=== PATIENT | female | born 1980 | race Caucasian/White ===

== ENCOUNTER 2018-08-03 10:45 | Inpatient (IN) | payer OTHER ==
[2018-08-03 10:56] VITALS: BMI 32.5
--- NOTE | 2018-08-03 11:09 | PDOC ---
History of Present Illness - General Chief Complaint: SIRS, Suspected/Possible Stated Complaint: BODY ACHE\\ CHILLS Time Seen by Provider: 08/03/18 11:09 History Source: Patient Exam Limitations: No Limitations - History of Present Illness Initial Comments: Pt is a 38 yo F, with PMH of HTN, ESRD (IgA nephropathy, with permacath L chest and AV fistula being placed L AC), who is presenting with complaints of subjective chills and decreased appetite since yesterday. Pt saw her vascular surgeon today (Dr. Marques), who inspected her AV fistula site and removed jose. Pt called her dialysis team, who told the pt to come to the ER due to the chills. Pt states she noticed a "bad smell" coming from her permacath yesterday, but that the site "looks normal" to her. Pt denies any fevers, headache, vision changes, syncope, chest pain, palpitations, SOB, nausea/ vomiting, abdominal pain, urinary symptoms, diarrhea/constipation, or leg swelling. Social: Pt denies any cigarette, alcohol, or drug use. Pt denies any recent travel or sick contacts. Surgical: L chest permacath, L AV fistula. Family: no relevant history. 08/03/18 13:41 Past History - Travel Traveled outside of the country in the last 30 days: No Close contact w/someone who was outside of country & ill: No - Past Medical History Allergies/Adverse Reactions: Allergies Allergy/AdvReac Type Severity Reaction Status Date / Time No Known Allergies Allergy Verified 06/28/18 08:48 Home Medications: Ambulatory Orders Labetalol HCl 300 mg PO BID 06/29/18 Amlodipine Besylate [Norvasc -] 5 mg PO DAILY tablet 07/02/18 Calcium (Oyster Shell) [Os-Shaheed 500MG -] 500 mg PO DAILY #60 tablet 07/02/18 COPD: No Dialysis: (ESRD-THU//THU) GI Disorders: Yes (ESRD) HTN: Yes - Immunization History Immunization Up to Date: Yes - Suicide/Smoking/Psychosocial Hx Smoking History: Never smoked Have you smoked in the past 12 months: No Information on smoking cessation initiated: No Hx Alcohol Use: No Drug/Substance Use Hx: No Review of Systems - Review of Systems Able to Perform ROS?: Yes Is the patient limited [place] proficient: No Constitutional: Yes: Chills, Loss of Appetite, Malaise, Weight Stable. No: Diaphoresis, Fever, Weakness HEENTM: No: Blurred Vision, Recent change in vision, Nose Congestion, Throat Pain, Throat Swelling Respiratory: No: Cough, Orthopnea, Shortness of Breath Cardiac (ROS): No: Chest Pain, Edema, Irregular Heart Rate, Lightheadedness, Palpitations, Syncope, Chest Tightness ABD/GI: Yes: Poor Appetite, Poor Fluid Intake. No: Diarrhea, Nausea, Vomiting, Abdominal cramping : No: Burning, Dysuria, Frequency, Pain, Urgency Musculoskeletal: Yes: Muscle Pain. No: Back Pain, Joint Pain, Muscle Weakness Integumentary: Yes: Erythema (erythema and warmth over L chest wall, "smell" from permacath). No: Rash Neurological: No: Headache, Numbness, Weakness, Dizziness Psychiatric: No: Sleep Pattern Change, Change in Appetite Endocrine: No: Increased Urine, Change in Weight Hematologic/Lymphatic: No: Anemia, Blood Clots, Easy Bleeding, Easy Bruising All Other Systems: Reviewed and Negative *Physical Exam - Vital Signs Last Vital Signs Temp Pulse Resp BP Pulse Ox 99.1 F 94 H 16 114/52 L 100 08/03/18 10:52 08/03/18 10:52 08/03/18 10:52 08/03/18 10:52 08/03/18 10:52 - Physical Exam Comments: Vitals stable, rectal temp 102.4. Pt in NAD, normal body habitus. Pt alert and oriented x3. embryology teacher generally intact, muscular strength and sensation intact. No midline spinal tenderness, step-offs, or crepitus. Head normocephalic, atraumatic. Eyes PERRLA, EOMI. Oropharynx without erythema or exudates, no LAD b/l. No nasal congestion, hearing intact. Clear heart sounds, S1/S2, no JVD, b/l pedal edema, or heart murmur. Clear lung sounds, no respiratory distress, wheezes, crackles, or accessory muscle use. Erythema and warmth over L chest wall surrounding permacath, with foul smell, crusted discharge around catheter. No abdominal or CVA tenderness to palpation, no rebound, no guarding. Abdomen soft, non-distended, and with normoactive bowel sounds. Skin without jaundice or rash. 08/03/18 13:24 ED Treatment Course - LABORATORY CBC & Chemistry Diagram: 08/03/18 11:29 08/03/18 11:29 Medical Decision Making - Medical Decision Making Pt was seen at bedside, also will be seen by attending Dr. Logan. Pt presenting with complaints of subjective chills and decreased appetite since yesterday. Pt saw her vascular surgeon today (Dr. Marques), who inspected her AV fistula site and removed jose. Pt called her dialysis team, who told the pt to come to the ER due to the chills. Pt states she noticed a "bad smell" coming from her permacath yesterday, but that the site "looks normal" to her. Pt denies any fevers, headache, vision changes, syncope, chest pain, palpitations, SOB, nausea /vomiting, abdominal pain, urinary symptoms, diarrhea/constipation, or leg swelling. Ordered work-up including sepsis work-up with blood cultures, UA, and chest x- ray to evaluate for infectious sources (cutaneous infection, UTI, pneumonia). Will check electrolytes and ECG. Provided 1 L IV NS and 1 g ofirmev for improvement of fever and dehydration. Will continue to reassess pt and monitor for symptomatic improvement. ECG: NSR, intervals WNL (HR 91, NC 160, QRS 92, QTc 423). No TWIs or significant ST segment changes. No significant changes from prior ECG (06/28/2018 ). Pt seen by both Dr. Marques's team and Dr. Dillon (nephrology). Started 1.25 g IV vancomycin and 200 mg IV gentamycin. Paging hospitalist team for admission. 08/03/18 13:31 Pt accepted for admission (Dr. Lopez). Pt hemodynamically stable and awaiting bed upstairs. 08/03/18 13:46 *DC/Admit/Observation/Transfer Diagnosis at time of Disposition: ESRD (end stage renal disease), IgA nephropathy Sepsis Qualifiers: Sepsis type: sepsis due to unspecified organism Qualified Code(s): A41.9 - Sepsis, unspecified organism - Discharge Dispostion Condition at time of disposition: Stable Decision to Admit order: Yes - Referrals Referrals: Renate Pichardo MD [Primary Care Provider] - - Patient Instructions - Post Discharge Activity
[2018-08-03] MEDS ORDERED: ACETAMINOPHEN 1000 MG/100 ML VIAL (NON FORMULARY) IVPB ONE (11:35)
[2018-08-03 11:40] LABS: BASO % 0.7 % (0-2.0); HEMATOCRIT 28.7 % (32.4-45.2); HEMOGLOBIN 9.3 GM/dL (10.7-15.3); LYMPH % 2.7 % (8-40); MCHC 32.4 g/dl (32.0-36.0); MEAN CELL VOLUME 92.8 fl (80-96); MEAN PLT VOLUME 8.1 fl (7.5-11.1); NEUT % 91.6 % (42.8-82.8); PLATELET COUNT 255 K/MM3 (134-434); RBC 3.09 M/mm3 (3.60-5.2); RDW 13.8 % (11.6-15.6); WHITE BLOOD COUNT 18.8 K/mm3 (4.0-10.0)
[2018-08-03 11:43] LABS: VENOUS PC02 38.5 mmHg (41-51); VENOUS PH 7.34 (7.31-7.41)
[2018-08-03] MEDS ORDERED: ACETAMINOPHEN INJECTION 100 ML IVPB ONE (11:45)
[2018-08-03] MEDS: SODIUM CHLORIDE 2,422 ML IV ONE ×2 (11:45→12:27)
[2018-08-03 11:50] LABS: VENOUS PO2 22.8 mmHg (30-40)
[2018-08-03 11:57] LABS: PH,URINE 5.5 (5.0-8.0); URINE APPEARANCE Clear; URINE BILIRUBIN 1+ (NEGATIVE); URINE COLOR Yellow; URINE GLUCOSE (UA) Negative (NEGATIVE); URINE KETONE Trace (NEGATIVE); URINE LEUK ESTERASE Trace (NEGATIVE); URINE NITRITE Negative (NEGATIVE); URINE PROTEIN 3+ (NEGATIVE); URINE UROBILINOGEN 0.2 mg/dL (0.2-1.0)
--- NOTE | 2018-08-03 12:00 | PDOC ---
Attending Attestation - Resident Resident Name: Donya Shearer - ED Attending Attestation I have performed the following: I have examined & evaluated the patient, The case was reviewed & discussed with the resident, I agree w/resident's findings & plan - HPI HPI: 08/03/18 11:59 38-year-old female past medical history of hypertension, uremia/severe anemia, IgA nephropathy, ESRD via left AVF presenting with malaise, fever. - Physicial Exam PE: 08/03/18 11:59 Agree with the resident's HPI and PE as documented in the electronic medical record. malaised appearing, EOMI, PERRL, dry membranes, nl conjunctiva, anicteric; neck supple. lungs clear, RRR, soft holosystolic murmur, abdomen soft nontender. Back nontender. NIEVES x4, no focal neuro deficits. No peripheral edema. normal color for ethnicity, WWP. no rash Left AVF site maturing. left anterior chest wall permacath site intact 08/03/18 15:27 - Medical Decision Making 08/03/18 11:59 See HPI for details. Prior notes reviewed, including admissions, discharges and consultations. Vital signs reviewed, fever; normotensive, normal HR. laboratory results and imaging reviewed, basic labs and lytes notable for leukocytosis 18K, unchanged stable anemia. K fine no ekg changes. no tx for or indicated for now UA_unremarkable CXR_neg Cardiac panel_neg EKG normal sinus rhythm, no interval abnormalities, narrow QRS, ST and T wave segments and morphology normal. Nonspecific T wave abnormalities ED course - IVF and tylenol. - cultures, including blood and urine. source of infection - blood stream central access site/permacath, pna, UTI, - nephro cs Dr Longoria - rec vanc and gentamicin - vasc cs Dr Marques admit for fever/infection, presumed central line infection, nonemergent dialysis tomorrow. 08/03/18 12:22 08/03/18 15:27 08/03/18 15:28
--- NOTE | 2018-08-03 12:02 | EKG ---
Test Reason : Blood Pressure : / mmHG Vent. Rate : 091 BPM Atrial Rate : 091 BPM P-R Int : 160 ms QRS Dur : 092 ms QT Int : 344 ms P-R-T Axes : 044 071 067 degrees QTc Int : 423 ms NORMAL SINUS RHYTHM NORMAL ECG WHEN COMPARED WITH ECG OF 28-JUN-2018 10:00, NO SIGNIFICANT CHANGE WAS FOUND Confirmed by Luigi Prado MD ([id number]) on 08/03/2018 12:01:57 PM Referred By: Confirmed By:Luigi Prado MD
[2018-08-03 12:04] LABS: INR 1.19 (0.83-1.09); PROTHROMBIN TIME (PATIENT) 14.1 SEC (9.7-13.0)
[2018-08-03 12:06] LABS: ACTIVATED PTT 33.1 SECONDS (25.2-36.5)
[2018-08-03] MEDS ORDERED: VANCOMYCIN 1,250 MG in DEXTROSE 5%-WATER - 250 ML IVPB ONE (12:14)
[2018-08-03] MEDS ORDERED: GENTAMICIN INJECTION 100 MG in SODIUM CHLORIDE 97.5 ML IVPB ONE (12:15)
[2018-08-03 12:19] LABS: ALBUMIN 3.5 g/dl (3.4-5.0); BILIRUBIN,TOTAL 0.7 mg/dL (0.2-1); CALCIUM 8.6 mg/dL (8.5-10.1); POTASSIUM 4.6 mmol/L (3.5-5.1); TOT PROT 7.1 g/dl (6.4-8.2)
[2018-08-03] MEDS ORDERED: GENTAMICIN IVPB ONE (12:22)
[2018-08-03] MEDS ORDERED: SODIUM CHLORIDE IVPB ONE (12:22)
[2018-08-03] MEDS ORDERED: SODIUM CHLORIDE 1,000 ML IV STA (12:24)
[2018-08-03 12:27] LABS: EPI CELLS 2+ /HPF (0-5/HPF); URINE BACTERIA 2+ /hpf (NEGATIVE)
[2018-08-03] MEDS ORDERED: GENTAMICIN SO4 80 MG/2 ML VIAL ONE (12:46)
--- NOTE | 2018-08-03 13:47 | HP ---
Admitting History and Physical - Primary Care Physician PCP: Renate Pichardo - Admission Chief Complaint: diffuse body aches and fevers with purulet drainage from permacath History of Present Illness: This is a 38 year old woman with hx of 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 Pt was recently started on dialysis via left IJ tunneled catheter. Last dialysis was Thursday w/ o issue. + Fever of 102 in the ER. No SOB, abd pain, N/V/D, dysuria. Has diffuse body aches. History Source: Patient Limitations to Obtaining History: No Limitations - Past Medical History Cardiovascular: Yes: HTN Renal/: Yes: Renal Failure, Hemodialysis - Past Surgical History Past Surgical History: Yes: AV Fistula/Graft (left) - Smoking History Smoking history: Never smoked - Alcohol/Substance Use Hx Alcohol Use: No Home Medications - Allergies Allergies/Adverse Reactions: Allergies Allergy/AdvReac Type Severity Reaction Status Date / Time No Known Allergies Allergy Verified 06/28/18 08:48 - Home Medications Home Medications: Ambulatory Orders Labetalol HCl 300 mg PO BID 06/29/18 Amlodipine Besylate [Norvasc -] 5 mg PO DAILY tablet 07/02/18 Calcium (Oyster Shell) [Os-Shaheed 500MG -] 500 mg PO DAILY #60 tablet 07/02/18 Family Disease History - Family Disease History Family History: Unremarkable Review of Systems - Review of Systems Constitutional: reports: Chills, Fever Eyes: reports: No Symptoms HENT: reports: No Symptoms Neck: reports: No Symptoms, Other (left permacath) Cardiovascular: reports: No Symptoms Respiratory: reports: No Symptoms Gastrointestinal: reports: Nausea (yesterday) Genitourinary: reports: No Symptoms Breasts: reports: No Symptoms Reported Musculoskeletal: reports: No Symptoms Integumentary: reports: Wound (prurulent foul smelling drainage from left permacath site) Neurological: reports: No Symptoms Endocrine: reports: No Symptoms Hematology/Lymphatic: reports: No Symptoms Psychiatric: reports: No Symptoms Physical Examination Vital Signs: Vital Signs Temperature 101.9 F H 08/03/18 12:59 Pulse Rate 88 08/03/18 12:59 Respiratory Rate 20 08/03/18 12:59 Blood Pressure 112/50 L 08/03/18 12:59 O2 Sat by Pulse Oximetry (%) 98 08/03/18 12:59 Constitutional: Yes: Well Nourished, No Distress, Calm Eyes: Yes: WNL, Conjunctiva Clear, EOM Intact, Ptosis HENT: Yes: WNL, Atraumatic Neck: Yes: WNL, Supple, Trachea Midline, Other (left tunneled permacath noted. Yellow, foul smelling drainage around insertion site) Cardiovascular: Yes: WNL, Regular Rate and Rhythm, Other (laft foremarm AV fistula soumya +bruit/+thrill) Respiratory: Yes: WNL, Regular, CTA Bilaterally Gastrointestinal: Yes: WNL, Normal Bowel Sounds, Soft ...Rectal Exam: Yes: Deferred Renal/: Yes: WNL Breast(s): Yes: WNL Musculoskeletal: Yes: WNL Extremities: Yes: WNL Edema: No Peripheral Pulses WNL: Yes Neurological: Yes: WNL, Alert ...Motor Strength: WNL Psychiatric: Yes: WNL, Alert, Oriented Labs: CBC, BMP 08/03/18 11:29 08/03/18 11:29 Imaging - Results Chest X-ray: Report Reviewed, Image Reviewed (No effusion/infiltatred. Left permacath noted with tip at RA) EKG: Image Reviewed (ECG: NSR, intervals WNL (HR 91, CA 160, QRS 92, QTc 423). No TWIs or significant ST segment changes. No significant changes from prior ECG (06/28/2018).) Problem List - Problems (1) Infection Assessment/Plan: Permacath with drainage are erythema to site, possible bacteremia surgery to remove catheter culture sent from tip-will follow -leukocytosis 18.8, trend WBC, temperature -received Vanco and gentamycin in ED -ID consult requested (Dr Bryant) Dr Marques following patient and appreciate input -monitor for signs of sepsis/bacteremia Code(s): B99.9 - UNSPECIFIED INFECTIOUS DISEASE (2) ESRD (end stage renal disease) Assessment/Plan: Patient had HD on thursday, was supposed to go yesterday but felt so unwell -scheduled for new permacath tomorrow by vascular -renal followong and appreciate note, plan for HD tomorrow after catheter inserted -monitor, electrolytes, BUN/Cr -Dr Dillon following patient and appreciate input Code(s): N18.6 - END STAGE RENAL DISEASE (3) IgA nephropathy Assessment/Plan: currentlt on HD Code(s): N02.8 - RECURRENT AND PERSISTENT HEMATURIA W OTH MORPHOLOGIC CHANGES (4) HTN, goal below 130/80 Assessment/Plan: continue labetolol and norvasc with hold parameters 1L NS bolus given in ED, no further need for additional fluids Code(s): I10 - ESSENTIAL (PRIMARY) HYPERTENSION (5) Prophylactic measure Assessment/Plan: Prophy patient ambulatory however high risk for DVT if immoblilty occurs Dispo Maintain as inpatient Full code Discharge planning Code(s): Z29.9 - ENCOUNTER FOR PROPHYLACTIC MEASURES, UNSPECIFIED (6) Uremia Assessment/Plan: ESRD BUN 49, Cr 9.0 HD scheduled for tmrw after permacath inserted Code(s): N19 - UNSPECIFIED KIDNEY FAILURE Visit type - Emergency Visit Emergency Visit: Yes ED Registration Date: 08/03/18 Care time: The patient presented to the Emergency Department on the above date and was hospitalized for further evaluation of their emergent condition. - New Patient This patient is new to me today: Yes Date on this admission: 08/03/18 - Critical Care Critical Care patient: No
[2018-08-03 13:48] LABS: ANISOCYTOSIS 2+; MACROCYTOSIS 0; OVALOCYTE 1+; PLATELET ESTIMATE NORMAL
--- NOTE | 2018-08-03 14:25 | CONSULT ---
Consult - text type - Consultation Consultation Note: Renal consult for ESRD This is a 38 year old woman with hx of 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 Pt was recently started on dialysis via left IJ tunneled catheter. Last dialysis was Thursday w/ o issue. + Fever of 102 in the ER. No SOB, abd pain, N/V/D, dysuria. Has diffuse body aches. PMhx: as above Allergies: NKDA Family Hx: NC Social Hx: No T/A/D Home Medications Medication Instructions Recorded Labetalol HCl 300 mg PO BID 06/29/18 Amlodipine Besylate [Norvasc -] 5 mg PO DAILY tablet 07/02/18 Calcium (Oyster Shell) [Os-Shaheed 500 mg PO DAILY #60 tablet 07/02/18 500MG -] Vital Signs Temperature 100.6 F H 08/03/18 14:19 Pulse Rate 88 08/03/18 14:19 Respiratory Rate 18 08/03/18 14:19 Blood Pressure 101/52 L 08/03/18 14:19 O2 Sat by Pulse Oximetry (%) 98 08/03/18 14:19 Intake & Output 07/31/18 08/01/18 08/02/18 08/03/18 23:59 23:59 23:59 23:59 Weight 80.739 kg NAD awake and alert neck supple, no JVD CTA soft NT/ND No Le edema left chest catheter, mild erythema, + tenderness, no overt discharge CBC, BMP 08/03/18 11:29 08/03/18 11:29 38 year old woman with hx of 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 #Fevers with sepsis syndrome with suspected catheter related bacteremia #ESRD on HD #Hyperetnsion #Anemia tunneled catheter to be removed by vascular check blood cultures empiric Abx (vanco and gent given in the ER) ID consult no acute need for RESPIRATORY MEDICINE PHYSICIAN today will check labs in AM, to have femoral catheter inserted for HD by vascular tomorrow will continue NAVYA with HD tomorrow Thank you Von Dillon DO
[2018-08-03] MEDS ORDERED: ACETAMINOPHEN 1000 MG/100 ML VIAL (NON FORMULARY) IVPB PRN ×2 (16:13→16:36)
--- NOTE | 2018-08-03 16:21 | CONSULT ---
- Consultation REQUESTING PROVIDER: CONSULT REQUEST: We have been asked to surgically evaluate this patient for infected permacath PCP:KEE Sheets HISTORY OF PRESENT ILLNESS: This is a 38 year old woman with hx of 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 Pt was recently started on dialysis via left IJ tunneled catheter. Last dialysis was Thursday w/o issue. Patient developed fever and chills on Thursday now with + Fever of 102 in the ER. No SOB, abd pain, N/V/D, dysuria. Has diffuse body aches. PMhx: as above Allergies: NKDA Family Hx: NC Social Hx: No T/A/D Home Medications Medication Instructions Recorded Labetalol HCl 300 mg PO BID 06/29/18 Amlodipine Besylate [Norvasc -] 5 mg PO DAILY tablet 07/02/18 Calcium (Oyster Shell) [Os-Shaheed 500 mg PO DAILY #60 tablet 07/02/18 500MG -] Allergies Allergy/AdvReac Type Severity Reaction Status Date / Time No Known Allergies Allergy Verified 06/28/18 08:48 REVIEW OF SYSTEMS: CONSTITUTIONAL: + fever, chills, CARDIOVASCULAR: Absent: chest pain, syncope, palpitations, RESPIRATORY: Absent: cough, shortness of breath, dyspnea with exertion, GASTROINTESTINAL: Absent: abdominal pain, abdominal distension, nausea, vomiting, diarrhea, GENITOURINARY: Absent: dysuria, frequency, SKIN: Absent: rash, itching, pallor HEMATOLOGIC/IMMUNOLOGIC: Absent: easy bleeding, NEUROLOGIC: Absent: headache, focal weakness, paresthesias, bladder or bowel incontinence PSYCHIATRIC: Absent: anxiety, depression, suicidal or homicidal ideation, hallucinations. PHYSICAL EXAM: GENERAL: Awake, alert, and fully oriented, in no acute distress. HEAD: Normal with no signs of trauma. EYES: sclera anicteric, conjunctiva clear. LUNGS: No auditory wheezes, No accessory muscle use. MUSCULOSKELETAL: left chest wall catheter, mild erythema, + tenderness, no overt discharge UPPER EXTREMITIES: warm, well-perfused. left AVF site jose removed in office today, clean and dry, no palpable thrill. No cyanosis. No peripheral edema. NEUROLOGICAL: Normal speech, gait not observed. PSYCH: Cooperative. Good eye contact. Appropriate mood and affect. SKIN: Warm, dry, normal turgor, no rashes or lesions noted. Vital Signs Temperature 100.5 F H 08/03/18 15:30 Pulse Rate 88 08/03/18 15:30 Respiratory Rate 20 08/03/18 15:30 Blood Pressure 123/65 08/03/18 15:30 O2 Sat by Pulse Oximetry (%) 98 08/03/18 14:19 Lab Results WBC 18.8 K/mm3 (4.0-10.0) H 08/03/18 11:29 RBC 3.09 M/mm3 (3.60-5.2) L 08/03/18 11:29 Hgb 9.3 GM/dL (10.7-15.3) L 08/03/18 11:29 Hct 28.7 % (32.4-45.2) L 08/03/18 11:29 MCV 92.8 fl (80-96) 08/03/18 11:29 MCHC 32.4 g/dl (32.0-36.0) 08/03/18 11:29 RDW 13.8 % (11.6-15.6) 08/03/18 11:29 Plt Count 255 K/MM3 (134-434) D 08/03/18 11:29 Sodium 133 mmol/L (136-145) L 08/03/18 11:29 Potassium 4.6 mmol/L (3.5-5.1) 08/03/18 11:29 Chloride 102 mmol/L (98-107) 08/03/18 11:29 Carbon Dioxide 22 mmol/L (21-32) 08/03/18 11:29 Anion Gap 9 MMOL/L (8-16) 08/03/18 11:29 BUN 49 mg/dL (7-18) H 08/03/18 11:29 Creatinine 9.0 mg/dL (0.55-1.3) H* 08/03/18 11:29 Random Glucose 105 mg/dL (74-106) 08/03/18 11:29 Calcium 8.6 mg/dL (8.5-10.1) 08/03/18 11:29 INR 1.19 (0.83-1.09) H 08/03/18 11:29 Problem List - Problems (1) Sepsis Assessment/Plan: 38 year old woman with hx of 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 1) Tunneled catheter to be removed by vascular surgery at bedside today 2) F/u all cultures (Blood, PC and tunnel) 3) Empiric Abx per ID 4) f/u AM labs, plan for femoral catheter inserted for HD by vascular tomorrow Evaluation and plan discussed with Dr Marques Code(s): A41.9 - SEPSIS, UNSPECIFIED ORGANISM Qualifiers: Sepsis type: sepsis due to unspecified organism Qualified Code(s): A41.9 - Sepsis, unspecified organism
--- NOTE | 2018-08-03 16:38 | PROC ---
Procedure Note Procedure: Pt was placed supine with head up on her bed and permacath was clean and draped in a sterile method. Permacath was remove with direct force and copious pus was noted along catheter and coming out of tract. Catheter was inspected and found to be intact. A culture was taken of the permacath tract and permacath tip was sent for culture. Bleeding was minimal and pt tolerated the procedure well. A clean dry dressing was placed over the removal site.
[2018-08-03] MEDS: LABETALOL HCL 100 MG TABLET (FP) PO SCH (22:10)
[2018-08-04] MEDS: ACETAMINOPHEN 1000 MG/100 ML VIAL (NON FORMULARY) IVPB PRN ×2 (06:29→16:24)
--- NOTE | 2018-08-04 07:47 | PN ---
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 Pt was recently started on dialysis via left IJ tunneled catheter. Last dialysis was Thursday w/ o issue. + Fever of 102 in the ER. No SOB, abd pain, N/V/D, dysuria. Has diffuse body aches. - Current Medication List Current Medications: Active Medications Acetaminophen (Ofirmev Injection -) 1,000 mg IVPB Q6H PRN PRN Reason: FEVER Last Admin: 08/04/18 06:29 Dose: 1,000 mg Amlodipine Besylate (Norvasc -) 5 mg PO DAILY [facility] Calcium Carbonate (Os-Shaheed 500mg -) 500 mg PO DAILY [facility] Epoetin Karl (Epogen -) 10,000 unit IVPUSH ONCE ONE Stop: 08/04/18 12:01 Sodium Chloride (Normal Saline -) 250 mls @ 3,000 mls/hr IV PRN PRN PRN Reason: Hypotension during Dialysis Stop: 08/04/18 14:26 Labetalol HCl (Normodyne -) 300 mg PO BID [facility] Last Admin: 08/03/18 22:10 Dose: Not Given - Objective Vital Signs: Vital Signs Temperature 100.9 F H 08/04/18 05:55 Pulse Rate 83 08/04/18 05:55 Respiratory Rate 20 08/04/18 05:55 Blood Pressure 129/65 08/04/18 05:55 O2 Sat by Pulse Oximetry (%) 98 08/03/18 21:00 Constitutional: Yes: Well Nourished, No Distress, Calm Eyes: Yes: WNL, Conjunctiva Clear, EOM Intact HENT: Yes: WNL, Atraumatic, Normocephalic Neck: Yes: WNL, Supple, Trachea Midline Cardiovascular: Yes: WNL, Regular Rate and Rhythm Respiratory: Yes: WNL, Regular, CTA Bilaterally Gastrointestinal: Yes: WNL, Normal Bowel Sounds, Soft ...Rectal Exam: Yes: Deferred Genitourinary: Yes: WNL Musculoskeletal: Yes: WNL Extremities: Yes: WNL, Other (left AV fistula with +bruit/+thrill) Edema: No Peripheral Pulses WNL: Yes Integumentary: Yes: WNL Neurological: Yes: WNL, Alert, Oriented ...Motor Strength: WNL Psychiatric: Yes: WNL, Alert, Oriented Labs: CBC, BMP 08/03/18 11:29 08/03/18 11:29 INR, PTT INR 1.19 (0.83-1.09) H 08/03/18 11:29 - ....Imaging Chest X-ray: Report Reviewed, Image Reviewed EKG: Image Reviewed Problem List - Problems (1) Infection Assessment/Plan: PC removed my surgery yesterday, no drainage at removal site -culture sent and growing GPC -leukocytosis 18.8 on admission now 8.8, cont to trend WBC, temperature -received Vanco and gentamycin in ED. Vanco level 24, will send random level after HD -ID following and appreciate recommendations -Dr Marques following patient and appreciate input -monitor for signs of sepsis/bacteremia Code(s): B99.9 - UNSPECIFIED INFECTIOUS DISEASE (2) ESRD (end stage renal disease) Assessment/Plan: Patient had HD on thursday, and in HD today with planned 2kg goal removal -monitor, electrolytes, BUN/Cr -Dr Dillon following patient and appreciate input Code(s): N18.6 - END STAGE RENAL DISEASE (3) IgA nephropathy Assessment/Plan: currentlt on HD Code(s): N02.8 - RECURRENT AND PERSISTENT HEMATURIA W OTH MORPHOLOGIC CHANGES (4) HTN, goal below 130/80 Assessment/Plan: continue labetolol and norvasc with hold parameters 1L NS bolus given in ED, no further need for additional fluids Code(s): I10 - ESSENTIAL (PRIMARY) HYPERTENSION (5) Prophylactic measure Assessment/Plan: Prophy patient ambulatory however high risk for DVT if immoblilty occurs Dispo Maintain as inpatient Full code Discharge planning Code(s): Z29.9 - ENCOUNTER FOR PROPHYLACTIC MEASURES, UNSPECIFIED (6) Uremia Assessment/Plan: ESRD BUN 49, Cr 9.0 will follow Cr/BUN after HD Code(s): N19 - UNSPECIFIED KIDNEY FAILURE (7) Bacteremia associated with intravascular line Assessment/Plan: permacath removes and given dose of vanco and gent Blood and PC trip cx growing GPC will dose vanco level per level TTE ordered to r/o any vegetations (no mummurs noted on exam) Code(s): T82.7XXA - INFECT/INFLM REACT D/T OTH CARDI/VASC DEV/IMPLNT/GRFT, INIT ; R78.81 - BACTEREMIA Visit type - Emergency Visit Emergency Visit: Yes ED Registration Date: 08/03/18 Care time: The patient presented to the Emergency Department on the above date and was hospitalized for further evaluation of their emergent condition. - New Patient This patient is new to me today: No - Critical Care Critical Care patient: No - Discharge Referral Referred to [facility] Med P.C.: No
[2018-08-04 08:55] LABS: BASO % 0.3 % (0-2.0); EOS % 1.3 % (0-4.5); HEMATOCRIT 25.3 % (32.4-45.2); HEMOGLOBIN 8.5 GM/dL (10.7-15.3); LYMPH % 5.1 % (8-40); MCH 30.7 pg (25.7-33.7); MCHC 33.4 g/dl (32.0-36.0); MEAN CELL VOLUME 91.9 fl (80-96); MEAN PLT VOLUME 8.4 fl (7.5-11.1); MONO % 3.9 % (3.8-10.2); NEUT % 89.4 % (42.8-82.8); PLATELET COUNT 213 K/MM3 (134-434); RBC 2.76 M/mm3 (3.60-5.2); RDW 14.2 % (11.6-15.6); WHITE BLOOD COUNT 9.9 K/mm3 (4.0-10.0)
[2018-08-04 09:07] LABS: INR 1.1 (0.83-1.09)
[2018-08-04 09:10] LABS: ACTIVATED PTT 32.1 SECONDS (25.2-36.5)
[2018-08-04 09:30] LABS: MAGNESIUM 2.3 mg/dL (1.8-2.4); PHOSPHOROUS 4.6 mg/dL (2.5-4.9)
[2018-08-04] MEDS: CALCIUM (OYSTER SHELL) 500 MG TABLET (FP) PO SCH (09:31)
[2018-08-04] MEDS: LABETALOL HCL 100 MG TABLET (FP) PO SCH ×2 (10:10→21:11)
[2018-08-04] MEDS: amLODIPine BESYLATE 5 MG TABLET (FP) PO SCH (10:10)
--- NOTE | 2018-08-04 10:29 | CON.ID ---
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 Pt was recently started on dialysis via left IJ tunneled catheter. Last dialysis was Thursday w/o issue. + Fever of 102 in the ER. No SOB, abd pain, N/V/D, dysuria. Has diffuse body aches. patient was worked up found to have bacteremia permacath was removed currently patient feels better and has been afebrile - History Source History Provided By: Patient Limitations to Obtaining History: No Limitations - Past Medical History Cardio/Vascular: Yes: HTN Renal/: Yes: Renal Failure, Hemodialysis ...LMP Comment: 07/14/18 ...: No - Past Surgical History Past Surgical History: Yes: AV Fistula/Graft (left) - Alcohol/Substance Use Hx Alcohol Use: No - Smoking History Smoking history: Never smoked Have you smoked in the past 12 months: No Aproximately how many cigarettes per day: 0 Home Medications - Allergies Allergies/Adverse Reactions: Allergies Allergy/AdvReac Type Severity Reaction Status Date / Time No Known Allergies Allergy Verified 06/28/18 08:48 - Home Medications Home Medications: Ambulatory Orders Labetalol HCl 300 mg PO BID 06/29/18 Amlodipine Besylate [Norvasc -] 5 mg PO DAILY tablet 07/02/18 Calcium (Oyster Shell) [Os-Shaheed 500MG -] 500 mg PO DAILY #60 tablet 07/02/18 Review of Systems - Review of Systems Constitutional: reports: Fever Eyes: reports: No Symptoms HENT: reports: No Symptoms Neck: reports: No Symptoms Cardiovascular: reports: No Symptoms Respiratory: reports: No Symptoms Gastrointestinal: reports: No Symptoms Genitourinary: reports: No Symptoms Musculoskeletal: reports: No Symptoms Integumentary: reports: Other Neurological: reports: No Symptoms Endocrine: reports: No Symptoms Hematology/Lymphatic: reports: No Symptoms Psychiatric: reports: No Symptoms Physical Exam Vital Signs: Vital Signs Temperature 99.4 F 08/04/18 08:01 Pulse Rate 77 08/04/18 08:01 Respiratory Rate 20 06/05/19 08:01 Blood Pressure 124/67 08/04/18 08:01 O2 Sat by Pulse Oximetry (%) 98 08/03/18 21:00 Constitutional: Yes: Well Nourished, No Distress, Calm Eyes: Yes: Conjunctiva Clear HENT: Yes: Other Neck: Yes: Supple, Trachea Midline Cardiovascular: Yes: Regular Rate and Rhythm Respiratory: Yes: Regular, CTA Bilaterally Gastrointestinal: Yes: Normal Bowel Sounds, Soft Musculoskeletal: Yes: WNL Extremities: Yes: WNL Wound/Incision: Yes: Dressing Dry and Intact Neurological: Yes: Alert, Oriented Psychiatric: Yes: Alert, Oriented Labs: CBC, BMP 08/04/18 08:26 08/03/18 11:29 Imaging - Results Chest X-ray: Report Reviewed, Image Reviewed Assessment/Plan Problem List - Problems (1) Infection Code(s): B99.9 - UNSPECIFIED INFECTIOUS DISEASE (2) ESRD (end stage renal disease) Code(s): N18.6 - END STAGE RENAL DISEASE (3) IgA nephropathy Code(s): N02.8 - RECURRENT AND PERSISTENT HEMATURIA W OTH MORPHOLOGIC CHANGES (4) HTN, goal below 130/80 Code(s): I10 - ESSENTIAL (PRIMARY) HYPERTENSION (5) Prophylactic measure Code(s): Z29.9 - ENCOUNTER FOR PROPHYLACTIC MEASURES, UNSPECIFIED (6) Uremia Code(s): N19 - UNSPECIFIED KIDNEY FAILURE 7 gm positive bacteremia plan will await for vanco levels will decide the dose wound care await for identification of the bacteria re cx result awaited
--- NOTE | 2018-08-04 12:18 | PROC ---
Central Line Insertion - Procedure Note TIME OUT performed prior to this procedure with verbal confirmation of correct patient identity, correct side, agreement of the procedure, correct patient position, availability of necessary equipment. The consent form is complete and accurate. Risk of possible infection, and bleeding have been discussed with the patient. Safety precautions based on patient history or medication use has been addressed. Indication: Other (access for dialysis) Central Line: Dialysis Cath, Dual Lumen Position: Supine Area prepped with Chlorhexidine solution then draped using sterile barrier protection. Anesthesia: Lidocaine 1% Technique used: Seldinger Ultrasound Guided Assistance: Yes Site: Right Femoral Dark venous non-pulsatile flow noted from hub of needle. The catheter was introduced. Guide wire removed intact. Each port aspirated then flushed with sterile normal saline and capped. Line secured to skin with silk suture. Biopatch placed around base of line. Sterile occlusive dressing applied. No complications. Patient tolerated the procedure well. CORNELIUS Melara was present throughout the entire procedure
[2018-08-04] MEDS ORDERED: SODIUM CHLORIDE 250 ML IV PRN (13:55)
[2018-08-04] MEDS ORDERED: EPOETIN ALFA 10,000 UNIT/1 ML VIAL IVPUSH ONE (14:00)
--- NOTE | 2018-08-04 14:43 | PN ---
Progress Note (short form) - Note Progress Note: Renal follow up for ESRD Pt seen and examined during dialysis s/p femoral catheter placement by vascular surgery BP stable, no fevers, no cp, abd pain continues to feel weak Goal UF is 1.5-2L Vital Signs Temperature 98.3 F 08/04/18 12:40 Pulse Rate 82 08/04/18 14:15 Respiratory Rate 18 08/04/18 14:15 Blood Pressure 115/63 08/04/18 14:15 O2 Sat by Pulse Oximetry (%) 96 08/04/18 09:00 Intake & Output 08/01/18 08/02/18 08/03/18 08/04/18 23:59 23:59 23:59 23:59 Intake Total 340 0 Balance 340 0 Weight 80.558 kg 80.014 kg NAD awake and alert neck supple, no JVD CTA soft NT/ND No Le edema left chest catheter, mild erythema, + tenderness, no overt discharge CBC, BMP 08/04/18 08:26 08/03/18 11:29 Current Medications Acetaminophen (Ofirmev Injection -) 1,000 mg IVPB Q6H PRN PRN Reason: FEVER Last Admin: 08/04/18 06:29 Dose: 1,000 mg Amlodipine Besylate (Norvasc -) 5 mg PO DAILY [facility] Last Admin: 08/04/18 10:10 Dose: Not Given Calcium Carbonate (Os-Shaheed 500mg -) 500 mg PO DAILY [facility] Last Admin: 08/04/18 09:31 Dose: 500 mg Labetalol HCl (Normodyne -) 300 mg PO BID [facility] Last Admin: 08/04/18 10:10 Dose: Not Given 38 year old woman with hx of 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 #catheter related bacteremia #ESRD on HD #Hyperetnsion #Anemia tolerating dialysis well clinically improved, no fever, less toxic appearing would ideally like to maintain femoral catheter until next dialysis (Thursday morning) and then remove, will discuss with ID Vanco level is 24 today, repeat level in AM (expect to come down with dialysis) f/u final cultures repeat cultures to be drawn today and tomorrow will give NAVYA with HD Thank you Von Dillon DO
[2018-08-04 14:58] LABS: ALBUMIN 3.1 g/dl (3.4-5.0); BILIRUBIN,TOTAL 0.5 mg/dL (0.2-1); CALCIUM 8.4 mg/dL (8.5-10.1); POTASSIUM 4.1 mmol/L (3.5-5.1); TOT PROT 6.5 g/dl (6.4-8.2)
[2018-08-04 15:02] LABS: CREATININE 9.3 mg/dL (0.55-1.3)
[2018-08-04 16:00] LABS: INR 1.03 (0.83-1.09); PROTHROMBIN TIME (PATIENT) 12.1 SEC (9.7-13.0)
[2018-08-04] MEDS ORDERED: ONDANSETRON 4 MG/2 ML VIAL ONE (21:51)
[2018-08-05 07:13] LABS: MAGNESIUM 2.2 mg/dL (1.8-2.4)
[2018-08-05 08:02] LABS: BASO % 0.3 % (0-2.0); EOS % 2.3 % (0-4.5); HEMOGLOBIN 8.8 GM/dL (10.7-15.3); LYMPH % 12.4 % (8-40); MCHC 32.6 g/dl (32.0-36.0); MEAN PLT VOLUME 9.4 fl (7.5-11.1); MONO % 10.8 % (3.8-10.2); NEUT % 74.2 % (42.8-82.8); PLATELET COUNT 205 K/MM3 (134-434); RBC 2.94 M/mm3 (3.60-5.2); RDW 13.8 % (11.6-15.6); WHITE BLOOD COUNT 5.5 K/mm3 (4.0-10.0)
[2018-08-05] MEDS ORDERED: VANCOMYCIN 1 GM in D5W (PRE-DOCKED) 1,000 MG/250 ML IVPB ONE (08:25)
--- NOTE | 2018-08-05 08:27 | PN ---
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 Pt was recently started on dialysis via left IJ tunneled catheter. Last dialysis was Thursday w/ o issue. + Fever of 102 in the ER. No SOB, abd pain, N/V/D, dysuria. Has diffuse body aches. - Current Medication List Current Medications: Active Medications Acetaminophen (Ofirmev Injection -) 1,000 mg IVPB Q6H PRN PRN Reason: FEVER Last Admin: 08/04/18 16:24 Dose: 1,000 mg Amlodipine Besylate (Norvasc -) 5 mg PO DAILY [facility] Last Admin: 08/04/18 10:10 Dose: Not Given Calcium Carbonate (Os-Shaheed 500mg -) 500 mg PO DAILY [facility] Last Admin: 08/04/18 09:31 Dose: 500 mg Labetalol HCl (Normodyne -) 300 mg PO BID [facility] Last Admin: 08/04/18 21:11 Dose: 300 mg - Objective Vital Signs: Vital Signs Temperature 99.4 F 08/05/18 06:05 Pulse Rate 83 08/05/18 06:05 Respiratory Rate 20 08/05/18 06:05 Blood Pressure 127/72 08/05/18 06:05 O2 Sat by Pulse Oximetry (%) 96 08/04/18 21:00 Constitutional: Yes: Well Nourished, No Distress, Calm Eyes: Yes: WNL, Conjunctiva Clear, EOM Intact HENT: Yes: WNL, Atraumatic, Normocephalic Neck: Yes: WNL, Supple, Trachea Midline Cardiovascular: Yes: WNL, Regular Rate and Rhythm Respiratory: Yes: WNL, Regular, CTA Bilaterally Gastrointestinal: Yes: WNL, Normal Bowel Sounds, Soft ...Rectal Exam: Yes: Deferred Genitourinary: Yes: Other (On HD) Breast(s): Yes: WNL Musculoskeletal: Yes: WNL Extremities: Yes: WNL Edema: Yes Edema: LLE: Trace, RLE: Trace Peripheral Pulses WNL: Yes Neurological: Yes: WNL, Alert, Oriented ...Motor Strength: WNL Psychiatric: Yes: WNL, Alert, Oriented Additional Findings/Remarks: Right femoral PC in place Labs: CBC, BMP 08/05/18 06:00 08/04/18 14:30 INR, PTT INR 1.03 (0.83-1.09) 08/04/18 15:30 - ....Imaging Chest X-ray: Image Reviewed Problem List - Problems (1) Infection Assessment/Plan: PC removed my surgery yesterday, no drainage at removal site -culture sent and growing MSSA -leukocytosis 18.8 on admission now 5.5 cont to trend WBC, temperature -received Vanco and gentamycin in ED. Vanco level 16 , will dose Vanco -ID following and appreciate recommendations -Dr Marques following patient and appreciate input, plan for tunneled cath tomorrow -monitor for signs of sepsis/bacteremia Code(s): B99.9 - UNSPECIFIED INFECTIOUS DISEASE (2) ESRD (end stage renal disease) Assessment/Plan: Patient had HD on thursday, and in HD yesterday with planned 2kg goal removal -monitor, electrolytes, BUN/Cr -Dr Dillon following patient and appreciate input -plan for HD tomorrow and then removal of dialysis cath Code(s): N18.6 - END STAGE RENAL DISEASE (3) IgA nephropathy Assessment/Plan: currentlt on HD Code(s): N02.8 - RECURRENT AND PERSISTENT HEMATURIA W OTH MORPHOLOGIC CHANGES (4) HTN, goal below 130/80 Assessment/Plan: continue labetolol and norvasc with hold parameters 1L NS bolus given in ED, no further need for additional fluids Code(s): I10 - ESSENTIAL (PRIMARY) HYPERTENSION (5) Prophylactic measure Assessment/Plan: Prophy patient ambulatory however high risk for DVT if immoblilty occurs Dispo Maintain as inpatient Full code Discharge planning Code(s): Z29.9 - ENCOUNTER FOR PROPHYLACTIC MEASURES, UNSPECIFIED (6) Uremia Assessment/Plan: ESRD BUN 49, Cr 9.0 will follow Cr/BUN after HD Code(s): N19 - UNSPECIFIED KIDNEY FAILURE (7) Bacteremia associated with intravascular line Assessment/Plan: permacath removed Blood and PC tip growing MSSA will dose vanco level per level TTE pending Code(s): T82.7XXA - INFECT/INFLM REACT D/T OTH CARDI/VASC DEV/IMPLNT/GRFT, INIT ; R78.81 - BACTEREMIA Visit type - Emergency Visit Emergency Visit: Yes ED Registration Date: 08/03/18 Care time: The patient presented to the Emergency Department on the above date and was hospitalized for further evaluation of their emergent condition. - New Patient This patient is new to me today: No - Critical Care Critical Care patient: No - Discharge Referral Referred to [facility] No
[2018-08-05] MEDS ORDERED: VANCOMYCIN 1 GRAM (PRE-DOCKED) 1,000 MG/250 ML BAG IVPB ONE (08:45)
--- NOTE | 2018-08-05 09:00 | PN ---
Progress Note (short form) - Note Progress Note: Admitted for line sepsis. Nos feels well. Tmax 99.7 Cath site clean, no redness or tenderness Blood C+S GPC, last set negative She will need new Permacath. If OK with ID I can schedule this afternoon.
[2018-08-05 09:35] LABS: BILIRUBIN,TOTAL 0.4 mg/dL (0.2-1); CALCIUM 7.9 mg/dL (8.5-10.1); CREATININE 5.9 mg/dL (0.55-1.3); POTASSIUM 3.7 mmol/L (3.5-5.1); TOT PROT 6.7 g/dl (6.4-8.2)
[2018-08-05] MEDS: LABETALOL HCL 100 MG TABLET (FP) PO SCH ×2 (10:43→21:25)
[2018-08-05] MEDS: CALCIUM (OYSTER SHELL) 500 MG TABLET (FP) PO SCH (10:43)
[2018-08-05] MEDS: amLODIPine BESYLATE 5 MG TABLET (FP) PO SCH (10:45)
--- NOTE | 2018-08-05 12:46 | PN ---
Progress Note, Physician History of Present Illness: stable no complaints repeat cx negative so far - Current Medication List Current Medications: Active Medications Acetaminophen (Ofirmev Injection -) 1,000 mg IVPB Q6H PRN PRN Reason: FEVER Last Admin: 08/04/18 16:24 Dose: 1,000 mg Amlodipine Besylate (Norvasc -) 5 mg PO DAILY [facility] Last Admin: 08/05/18 10:45 Dose: 5 mg Calcium Carbonate (Os-Shaheed 500mg -) 500 mg PO DAILY [facility] Last Admin: 08/05/18 10:43 Dose: 500 mg Labetalol HCl (Normodyne -) 300 mg PO BID [facility] Last Admin: 08/05/18 10:43 Dose: 300 mg - Objective Vital Signs: Vital Signs Temperature 99.3 F 08/05/18 10:00 Pulse Rate 83 08/05/18 10:00 Respiratory Rate 18 08/05/18 10:00 Blood Pressure 125/83 08/05/18 10:00 O2 Sat by Pulse Oximetry (%) 99 08/05/18 09:00 Constitutional: Yes: No Distress, Calm Cardiovascular: Yes: Regular Rate and Rhythm Respiratory: Yes: Regular, CTA Bilaterally Gastrointestinal: Yes: Normal Bowel Sounds, Soft Musculoskeletal: Yes: WNL Extremities: Yes: WNL Neurological: Yes: Alert, Oriented Psychiatric: Yes: Alert, Oriented Labs: CBC, BMP 08/05/18 06:00 08/05/18 06:00 INR, PTT INR 1.03 (0.83-1.09) 08/04/18 15:30 Assessment/Plan Problem List - Problems (1) Infection Code(s): B99.9 - UNSPECIFIED INFECTIOUS DISEASE (2) ESRD (end stage renal disease) Code(s): N18.6 - END STAGE RENAL DISEASE (3) IgA nephropathy Code(s): N02.8 - RECURRENT AND PERSISTENT HEMATURIA W OTH MORPHOLOGIC CHANGES (4) HTN, goal below 130/80 Code(s): I10 - ESSENTIAL (PRIMARY) HYPERTENSION (5) Prophylactic measure Code(s): Z29.9 - ENCOUNTER FOR PROPHYLACTIC MEASURES, UNSPECIFIED (6) Uremia Code(s): N19 - UNSPECIFIED KIDNEY FAILURE 7 gm positive bacteremia plan continue current mgmt rest as per the team
[2018-08-05 14:34] LABS: INR 1.08 (0.83-1.09); PROTHROMBIN TIME (PATIENT) 12.7 SEC (9.7-13.0)
[2018-08-05 14:54] LABS: ALBUMIN 3.1 g/dl (3.4-5.0); BILIRUBIN,TOTAL 0.5 mg/dL (0.2-1); CALCIUM 8.4 mg/dL (8.5-10.1); CREATININE 6.5 mg/dL (0.55-1.3); POTASSIUM 3.5 mmol/L (3.5-5.1)
--- NOTE | 2018-08-05 15:05 | PN ---
Progress Note (short form) - Note Progress Note: Renal follow up for ESRD Pt seen and examined at the bedside no fevers, chills, or body aches no sob, cp, abd pain, N/V/D had dialysis yesterday Vital Signs Temperature 99.3 F 08/05/18 10:00 Pulse Rate 83 08/05/18 10:00 Respiratory Rate 18 08/05/18 10:00 Blood Pressure 125/83 08/05/18 10:00 O2 Sat by Pulse Oximetry (%) 99 08/05/18 09:00 Intake & Output 08/02/18 08/03/18 08/04/18 08/05/18 23:59 23:59 23:59 23:59 Intake Total 340 100 200 Balance 340 100 200 Weight 80.558 kg 80.014 kg 78.273 kg NAD awake and alert neck supple, no JVD CTA soft NT/ND No Le edema left chest catheter, mild erythema, + tenderness, no overt discharge CBC, BMP 08/05/18 06:00 08/05/18 14:18 Current Medications Acetaminophen (Ofirmev Injection -) 1,000 mg IVPB Q6H PRN PRN Reason: FEVER Last Admin: 08/04/18 16:24 Dose: 1,000 mg Amlodipine Besylate (Norvasc -) 5 mg PO DAILY [facility] Last Admin: 08/05/18 10:45 Dose: 5 mg Calcium Carbonate (Os-Shaheed 500mg -) 500 mg PO DAILY [facility] Last Admin: 08/05/18 10:43 Dose: 500 mg Labetalol HCl (Normodyne -) 300 mg PO BID [facility] Last Admin: 08/05/18 10:43 Dose: 300 mg 38 year old woman with hx of 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 #catheter related bacteremia #ESRD on HD #Hyperetnsion #Anemia no acute need for dialysis today will plan dialysis tomorrow via femoral catheter and then it can be removed primary cultures growing MSSA s/p Vanco this am, will given Ancef 3g IV post HD tomorrow discussed with HD new tunneled catheter can be placed with repeat cultures are final negative Thank you Von Dillon DO
[2018-08-05] MEDS ORDERED: SODIUM CHLORIDE 250 ML IV PRN (15:31)
--- NOTE | 2018-08-05 16:29 | SPA.PREOP ---
- PRE-OP NOTE Dx: ESRD Planned Procedure: permacath placement Surgeon: Last Vital Signs Temp Pulse Resp BP Pulse Ox 98.1 F 83 18 114/49 L 99 08/05/18 15:34 08/05/18 15:34 08/05/18 15:34 08/05/18 15:34 08/05/18 09:00 Left chest: No erythema or drainage noted. Right Groin: shiley in place. Dressing c/d/i. Lab Results WBC 5.5 K/mm3 (4.0-10.0) 08/05/18 06:00 RBC 2.94 M/mm3 (3.60-5.2) L 08/05/18 06:00 Hgb 8.8 GM/dL (10.7-15.3) L 08/05/18 06:00 Hct 27.0 % (32.4-45.2) L 08/05/18 06:00 MCV 92.0 fl (80-96) 08/05/18 06:00 MCHC 32.6 g/dl (32.0-36.0) 08/05/18 06:00 RDW 13.8 % (11.6-15.6) 08/05/18 06:00 Plt Count 205 K/MM3 (134-434) 08/05/18 06:00 Sodium 136 mmol/L (136-145) 08/05/18 14:18 Potassium 3.5 mmol/L (3.5-5.1) 08/05/18 14:18 Chloride 99 mmol/L (98-107) 08/05/18 14:18 Carbon Dioxide 26 mmol/L (21-32) 08/05/18 14:18 Anion Gap 10 MMOL/L (8-16) 08/05/18 14:18 BUN 31 mg/dL (7-18) H 08/05/18 14:18 Creatinine 6.5 mg/dL (0.55-1.3) H 08/05/18 14:18 Random Glucose 132 mg/dL (74-106) H 08/05/18 14:18 Calcium 8.4 mg/dL (8.5-10.1) L 08/05/18 14:18 INR 1.08 (0.83-1.09) 08/05/18 14:18 Microbiology 08/03/18 20:45 Urine - Urine Clean Catch Urine Culture - Final NO GROWTH OBTAINED 08/03/18 16:39 Catheter Site Gram Stain - Final 08/03/18 16:32 Chest Gram Stain - Final 08/04/18 08:26 Blood - Pre-Dialysis Blood Culture - Preliminary NO GROWTH OBTAINED AFTER 24 HOURS, INCUBATION TO CONTINUE FOR 4 DAYS. 08/04/18 08:26 Blood - Pre-Dialysis Blood Culture - Preliminary NO GROWTH OBTAINED AFTER 24 HOURS, INCUBATION TO CONTINUE FOR 4 DAYS. 08/03/18 16:39 Catheter Site Wound Culture - Preliminary Presumptive Mssa (Pbp2a Neg) 08/03/18 16:32 Chest Wound Culture - Preliminary Presumptive Mssa (Pbp2a Neg) 08/03/18 11:29 Blood - Peripheral Venous Blood Culture - Preliminary Staphylococcus Latex Coag Pos 08/03/18 11:29 Blood - Peripheral Venous Blood Culture - Preliminary Presumptive Mssa (Pbp2a Neg) A/P: 38 yo female with ESRD for [facility] Spoke with ID and will continue IV abx, pt cleared for procedure pending blood cultures to remains negative. NGTD from 08/04/2018. Bacitracin to left chest D/w Dr. Marques - ASSESSMENT/PLAN 1. Make NPO after midnight except po meds 2. GI/DVT PPX 3. Medical optimization / clearance 4. Consent to be obtained by surgeon after risks, benefits and alternatives discussed with patient and or Health Care Proxy.
[2018-08-05] MEDS: BACITRACIN 15 GM TUBE TOPICAL OINTMENT TP SCH (21:25)
[2018-08-05] MEDS: ACETAMINOPHEN 1000 MG/100 ML VIAL (NON FORMULARY) IVPB PRN (23:22)
[2018-08-06] MEDS ORDERED: PT OWN MED DRAWER 7, Y5N ONE (06:05)
[2018-08-06 07:46] LABS: BASO % 0.8 % (0-2.0); EOS % 7.7 % (0-4.5); HEMATOCRIT 26.2 % (32.4-45.2); HEMOGLOBIN 8.7 GM/dL (10.7-15.3); LYMPH % 20.1 % (8-40); MCH 30.1 pg (25.7-33.7); MCHC 33.2 g/dl (32.0-36.0); MEAN CELL VOLUME 90.6 fl (80-96); MEAN PLT VOLUME 8.6 fl (7.5-11.1); MONO % 12.5 % (3.8-10.2); NEUT % 58.9 % (42.8-82.8); RBC 2.89 M/mm3 (3.60-5.2); RDW 13.8 % (11.6-15.6); WHITE BLOOD COUNT 5.1 K/mm3 (4.0-10.0)
--- NOTE | 2018-08-06 08:28 | PN ---
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 Pt was recently started on dialysis via left IJ tunneled catheter. Last dialysis was Thursday w/ o issue. + Fever of 102 in the ER. No SOB, abd pain, N/V/D, dysuria. Has diffuse body aches. - Current Medication List Current Medications: Active Medications Acetaminophen (Ofirmev Injection -) 1,000 mg IVPB Q6H PRN PRN Reason: FEVER Last Admin: 08/05/18 23:22 Dose: 1,000 mg Amlodipine Besylate (Norvasc -) 5 mg PO DAILY [facility] Last Admin: 08/05/18 10:45 Dose: 5 mg Bacitracin (Bacitracin -) 1 applic TP BID [facility] Last Admin: 08/05/18 21:25 Dose: 1 applic Calcium Carbonate (Os-Shaheed 500mg -) 500 mg PO DAILY [facility] Last Admin: 08/05/18 10:43 Dose: 500 mg Sodium Chloride (Normal Saline -) 250 mls @ 3,000 mls/hr IV PRN PRN PRN Reason: Hypotension during Dialysis Stop: 08/06/18 15:31 Cefazolin Sodium 3 gm/ (Dextrose) 50 mls @ 100 mls/hr IVPB ONCE ONE Stop: 08/06/18 09:29 Labetalol HCl (Normodyne -) 300 mg PO BID [facility] Last Admin: 08/05/18 21:25 Dose: Not Given - Objective Vital Signs: Vital Signs Temperature 98.3 F 08/06/18 05:58 Pulse Rate 71 08/06/18 05:58 Respiratory Rate 18 08/06/18 05:58 Blood Pressure 139/69 08/06/18 05:58 O2 Sat by Pulse Oximetry (%) 99 08/05/18 21:00 Constitutional: Yes: Well Nourished, No Distress, Calm Eyes: Yes: WNL, Conjunctiva Clear, EOM Intact HENT: Yes: WNL, Atraumatic, Normocephalic Neck: Yes: WNL, Supple, Trachea Midline Cardiovascular: Yes: WNL, Regular Rate and Rhythm Respiratory: Yes: WNL, Regular, CTA Bilaterally Gastrointestinal: Yes: WNL ...Rectal Exam: Yes: Deferred Genitourinary: Yes: WNL Musculoskeletal: Yes: WNL Extremities: Yes: Other (right femoral shiley catheter in place) Peripheral Pulses WNL: Yes Integumentary: Yes: WNL Neurological: Yes: WNL, Oriented ...Motor Strength: WNL Psychiatric: Yes: WNL, Alert, Oriented Labs: CBC, BMP 08/06/18 06:10 08/05/18 14:18 INR, PTT INR 1.08 (0.83-1.09) 08/05/18 14:18 - ....Imaging Chest X-ray: Image Reviewed Problem List - Problems (1) ESRD (end stage renal disease) Assessment/Plan: HD today -monitor, electrolytes, BUN/Cr -Dr Dillon following patient and appreciate input -plan for HD on thursday after procedures Code(s): N18.6 - END STAGE RENAL DISEASE (2) IgA nephropathy Assessment/Plan: currentlt on HD Code(s): N02.8 - RECURRENT AND PERSISTENT HEMATURIA W OTH MORPHOLOGIC CHANGES (3) HTN, goal below 130/80 Assessment/Plan: continue labetolol and norvasc with hold parameters 1L NS bolus given in ED, no further need for additional fluids Code(s): I10 - ESSENTIAL (PRIMARY) HYPERTENSION (4) Prophylactic measure Assessment/Plan: Prophy patient ambulatory however high risk for DVT if immoblilty occurs Dispo Maintain as inpatient Full code Discharge planning Code(s): Z29.9 - ENCOUNTER FOR PROPHYLACTIC MEASURES, UNSPECIFIED (5) Uremia Assessment/Plan: ESRD BUN 49, Cr 6.5 will follow Cr/BUN after HD Code(s): N19 - UNSPECIFIED KIDNEY FAILURE (6) Bacteremia associated with intravascular line Assessment/Plan: permacath removed with new skiley placed Blood and PC tip growing MSSA will dose vanco level per level TTE without vegetations -culture growing MSSA -leukocytosis 18.8 on admission now 5.1 cont to trend WBC, temperature -received Vanco and gentamycin in ED. Vanco dosed by level -ID following and appreciate recommendations -Dr Marques following patient and appreciate input, plan for tunneled cath on 08/09 with revision of AV fistua -monitor for signs of sepsis/bacteremia Code(s): T82.7XXA - INFECT/INFLM REACT D/T OTH CARDI/VASC DEV/IMPLNT/GRFT, INIT ; R78.81 - BACTEREMIA Visit type - Emergency Visit Emergency Visit: Yes ED Registration Date: 08/03/18 Care time: The patient presented to the Emergency Department on the above date and was hospitalized for further evaluation of their emergent condition. - New Patient This patient is new to me today: No - Critical Care Critical Care patient: No - Discharge Referral Referred to [facility] Med P.C.: No
--- NOTE | 2018-08-06 09:05 | PN ---
Progress Note, Physician History of Present Illness: stable no new issues - Current Medication List Current Medications: Active Medications Acetaminophen (Ofirmev Injection -) 1,000 mg IVPB Q6H PRN PRN Reason: FEVER Last Admin: 08/05/18 23:22 Dose: 1,000 mg Amlodipine Besylate (Norvasc -) 5 mg PO DAILY [facility] Last Admin: 08/05/18 10:45 Dose: 5 mg Bacitracin (Bacitracin -) 1 applic TP BID [facility] Last Admin: 08/05/18 21:25 Dose: 1 applic Calcium Carbonate (Os-Shaheed 500mg -) 500 mg PO DAILY [facility] Last Admin: 08/05/18 10:43 Dose: 500 mg Sodium Chloride (Normal Saline -) 250 mls @ 3,000 mls/hr IV PRN PRN PRN Reason: Hypotension during Dialysis Stop: 08/06/18 15:31 Cefazolin Sodium 3 gm/ (Dextrose) 50 mls @ 100 mls/hr IVPB ONCE ONE Stop: 08/06/18 09:29 Labetalol HCl (Normodyne -) 300 mg PO BID [facility] Last Admin: 08/05/18 21:25 Dose: Not Given - Objective Vital Signs: Vital Signs Temperature 98.3 F 08/06/18 05:58 Pulse Rate 71 08/06/18 05:58 Respiratory Rate 18 08/06/18 05:58 Blood Pressure 139/69 08/06/18 05:58 O2 Sat by Pulse Oximetry (%) 99 08/05/18 21:00 Constitutional: Yes: No Distress, Calm Cardiovascular: Yes: Regular Rate and Rhythm Respiratory: Yes: Regular, CTA Bilaterally Gastrointestinal: Yes: Normal Bowel Sounds, Soft Musculoskeletal: Yes: WNL Extremities: Yes: WNL Neurological: Yes: Alert, Oriented Psychiatric: Yes: Alert, Oriented Labs: CBC, BMP 08/06/18 06:10 08/05/18 14:18 INR, PTT INR 1.08 (0.83-1.09) 08/05/18 14:18 Assessment/Plan Problem List - Problems (1) Infection Code(s): B99.9 - UNSPECIFIED INFECTIOUS DISEASE (2) ESRD (end stage renal disease) Code(s): N18.6 - END STAGE RENAL DISEASE (3) IgA nephropathy Code(s): N02.8 - RECURRENT AND PERSISTENT HEMATURIA W OTH MORPHOLOGIC CHANGES (4) HTN, goal below 130/80 Code(s): I10 - ESSENTIAL (PRIMARY) HYPERTENSION (5) Prophylactic measure Code(s): Z29.9 - ENCOUNTER FOR PROPHYLACTIC MEASURES, UNSPECIFIED (6) Uremia Code(s): N19 - UNSPECIFIED KIDNEY FAILURE 7 gm positive bacteremia plan continue current mgmt rest as per the team patient to be started on cefazolin dialysis will need it for at least 2- 3 weeks
[2018-08-06] MEDS ORDERED: SODIUM CHLORIDE 250 ML IV PRN (10:14)
[2018-08-06] MEDS ORDERED: EPOETIN ALFA 10,000 UNIT/1 ML VIAL IVPUSH ONE (11:00)
[2018-08-06 11:43] LABS: PLATELET COUNT 242 K/MM3 (134-434)
[2018-08-06] MEDS ORDERED: CEFAZOLIN 3 GM in DEXTROSE 5%-WATER - 100 ML IVPB ONE (12:00)
--- NOTE | 2018-08-06 13:53 | ECHO ---
Name: ADINA LOVEAC L Exam:Adult Echocardiogram Study Date: 08/05/2018 11:50 AM Age: 38 yrs Reason For Study: bacteremia Height: 62 in Weight: 176 lb BSA: 1.8 m2 MMode/2D Measurements & Calculations IVSd: 1.2 cm Ao root diam: 2.9 cm LVIDd: 4.5 cm LA dimension: 3.7 cm LVIDs: 3.0 cm LVPWd: 1.1 cm EDV(Teich): 92.2 ml LVOT diam: 2.0 cm ESV(Teich): 33.7 ml LAV (MOD-bp): 60.8 ml Doppler Measurements & Calculations MV E max scott: 81.5 cm/sec Ao V2 max: 199.5 cm/sec MV A max scott: 65.0 cm/sec Ao max P.9 mmHg MV E/A: 1.3 MV dec time: 0.18 sec JAISON(V,D): 0.60 cm2 LV V1 max P.60 mmHg TR max scott: 250.4 cm/sec LV V1 max: 38.8 cm/sec TR max P.3 mmHg PA V2 max: 139.8 cm/sec Med Peak E' Scott: 5.1 cm/sec PA max P.8 mmHg Med E/e': 15.9 Lat Peak E' Scott: 6.2 cm/sec Lat E/e': 13.1 PI Vmax: 138.5 cm/sec Procedure A complete two-dimensional transthoracic echocardiogram was performed (2D, M-mode, Doppler and color flow Doppler). Left Ventricle The left ventricular size, thickness and function are normal. The left ventricular ejection fraction is normal. Ejection Fraction = 60-65%. The left ventricular wall motion is normal. Right Ventricle The right ventricle is normal in size and function. Atria Normal left and right atrial size and function. Mitral Valve There is trace mitral regurgitation. Tricuspid Valve There is mild tricuspid regurgitation. Right ventricular systolic pressure is normal. Aortic Valve No hemodynamically significant valvular aortic stenosis. No aortic regurgitation is present. Pulmonic Valve There is no pulmonic valvular regurgitation. Great Vessels The aortic root is normal size. Pericardium/Pleura There is no pericardial effusion. Interpretation Summary The left ventricular size, thickness and function are normal The right ventricle is normal in size and function. There is trace mitral regurgitation. There is mild tricuspid regurgitation. MD Dillon Lozano 08/06/2018 01:53 PM
--- NOTE | 2018-08-06 14:14 | PN ---
Progress Note (short form) - Note Progress Note: Scheduled for PC & revision of AVF 08/09/18. Please medically optimize for above procedure.
[2018-08-06 14:28] LABS: INR 1.03 (0.83-1.09); PROTHROMBIN TIME (PATIENT) 12.2 SEC (9.7-13.0)
[2018-08-06 14:44] LABS: ALBUMIN 3.3 g/dl (3.4-5.0); BILIRUBIN,TOTAL 0.2 mg/dL (0.2-1); BLOOD UREA NITROGEN 20.9 mg/dL (7-18); CALCIUM 8.2 mg/dL (8.5-10.1); CREATININE 4.5 mg/dL (0.55-1.3); POTASSIUM 3.2 mmol/L (3.5-5.1); TOT PROT 7.4 g/dl (6.4-8.2)
[2018-08-06] MEDS: LABETALOL HCL 100 MG TABLET (FP) PO SCH ×2 (15:15→21:05)
[2018-08-06] MEDS: amLODIPine BESYLATE 5 MG TABLET (FP) PO SCH (15:16)
[2018-08-06] MEDS: CALCIUM (OYSTER SHELL) 500 MG TABLET (FP) PO SCH (15:16)
[2018-08-06] MEDS: BACITRACIN 15 GM TUBE TOPICAL OINTMENT TP SCH ×2 (15:18→21:05)
--- NOTE | 2018-08-06 15:21 | PN ---
Progress Note (short form) - Note Progress Note: Renal follow up for ESRD Pt seen and examined at the bedside s/p dialysis this am via femoral catheter tolerated it well no chills, sob, cp, abd pain no fever or chills Vital Signs Temperature 99.8 F H 08/06/18 14:00 Pulse Rate 78 08/06/18 14:00 Respiratory Rate 20 08/06/18 14:00 Blood Pressure 118/66 08/06/18 14:00 O2 Sat by Pulse Oximetry (%) 99 08/06/18 09:00 Intake & Output 08/03/18 08/04/18 08/05/18 08/06/18 23:59 23:59 23:59 23:59 Intake Total 257 497 3761 400 Balance 410 507 7583 400 Weight 80.558 kg 80.014 kg 78.273 kg NAD awake and alert neck supple, no JVD CTA soft NT/ND No Le edema CBC, BMP 08/06/18 06:10 08/06/18 13:45 Current Medications Acetaminophen (Ofirmev Injection -) 1,000 mg IVPB Q6H PRN PRN Reason: FEVER Last Admin: 08/05/18 23:22 Dose: 1,000 mg Amlodipine Besylate (Norvasc -) 5 mg PO DAILY [facility] Last Admin: 08/06/18 15:16 Dose: Not Given Bacitracin (Bacitracin -) 1 applic TP BID [facility] Last Admin: 08/06/18 15:18 Dose: 1 applic Calcium Carbonate (Os-Shaheed 500mg -) 500 mg PO DAILY [facility] Last Admin: 08/06/18 15:16 Dose: Not Given Sodium Chloride (Normal Saline -) 250 mls @ 3,000 mls/hr IV PRN PRN PRN Reason: Hypotension during Dialysis Stop: 08/07/18 10:14 Labetalol HCl (Normodyne -) 300 mg PO BID [facility] Last Admin: 08/06/18 15:15 Dose: Not Given 38 year old woman with hx of 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 #catheter related bacteremia #ESRD on HD #Hyperetnsion #Anemia s/p dialysis this am via femoral catheter, to have catheter removed by vascular primary cultures growing MSSA, to get ancef 3g IV as per ID today to have tunneled catheter and AVF revision on Thursday if cultures remains negative check BMP, monitor blood cultures over the weekend Thank you Von Dillon DO
--- NOTE | 2018-08-06 15:42 | PROC ---
Procedure Note Procedure: INR 1.03 Right femoral shiley removed with distal tip intact. Direct pressure held for 5 minutes. + hemostasis. Clean, dry dressing applied. Patient tolerated procedure well.
[2018-08-06] MEDS: ACETAMINOPHEN 1000 MG/100 ML VIAL (NON FORMULARY) IVPB PRN (21:05)
[2018-08-07 07:24] LABS: CALCIUM 8.2 mg/dL (8.5-10.1); CREATININE 6.7 mg/dL (0.55-1.3); MAGNESIUM 2.3 mg/dL (1.8-2.4); POTASSIUM 3.7 mmol/L (3.5-5.1)
[2018-08-07 07:57] LABS: BASO % 0.9 % (0-2.0); EOS % 5.3 % (0-4.5); HEMATOCRIT 26.9 % (32.4-45.2); HEMOGLOBIN 9.1 GM/dL (10.7-15.3); LYMPH % 14.1 % (8-40); MCH 30.4 pg (25.7-33.7); MCHC 33.9 g/dl (32.0-36.0); MEAN CELL VOLUME 89.6 fl (80-96); MEAN PLT VOLUME 8.5 fl (7.5-11.1); MONO % 9.3 % (3.8-10.2); NEUT % 70.4 % (42.8-82.8); RDW 13.8 % (11.6-15.6); WHITE BLOOD COUNT 6.4 K/mm3 (4.0-10.0)
--- NOTE | 2018-08-07 07:59 | PN ---
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 Pt was recently started on dialysis via left IJ tunneled catheter. Last dialysis was Thursday w/ o issue. + Fever of 102 in the ER. No SOB, abd pain, N/V/D, dysuria. Has diffuse body aches. - Current Medication List Current Medications: Active Medications Amlodipine Besylate (Norvasc -) 5 mg PO DAILY [facility] Last Admin: 08/06/18 15:16 Dose: Not Given Bacitracin (Bacitracin -) 1 applic TP BID [facility] Last Admin: 08/06/18 21:05 Dose: 1 applic Calcium Carbonate (Os-Shaheed 500mg -) 500 mg PO DAILY [facility] Last Admin: 08/06/18 15:16 Dose: Not Given Sodium Chloride (Normal Saline -) 250 mls @ 3,000 mls/hr IV PRN PRN PRN Reason: Hypotension during Dialysis Stop: 08/07/18 10:14 Labetalol HCl (Normodyne -) 300 mg PO BID [facility] Last Admin: 08/06/18 21:05 Dose: 300 mg - Objective Vital Signs: Vital Signs Temperature 98.2 F 08/07/18 06:00 Pulse Rate 70 08/07/18 06:00 Respiratory Rate 18 08/07/18 06:00 Blood Pressure 135/74 08/07/18 06:00 O2 Sat by Pulse Oximetry (%) 99 08/06/18 19:53 Constitutional: Yes: Well Nourished, No Distress, Calm Eyes: Yes: WNL, Conjunctiva Clear, EOM Intact HENT: Yes: WNL, Atraumatic, Normocephalic Neck: Yes: WNL, Supple, Trachea Midline Cardiovascular: Yes: WNL, Regular Rate and Rhythm Respiratory: Yes: WNL, Regular, CTA Bilaterally Gastrointestinal: Yes: WNL, Normal Bowel Sounds, Soft Genitourinary: Yes: WNL Musculoskeletal: Yes: WNL Extremities: Yes: WNL, Other (right femoral shiley for HD in place. Left AV fistula with positive bruit + thrill) Edema: Yes Edema: LLE: Trace, RLE: Trace Peripheral Pulses WNL: Yes Integumentary: Yes: WNL Neurological: Yes: WNL, Alert, Oriented ...Motor Strength: WNL Psychiatric: Yes: WNL, Alert, Oriented Labs: CBC, BMP 08/07/18 06:20 INR, PTT INR 1.03 (0.83-1.09) 08/06/18 13:45 - ....Imaging Chest X-ray: Report Reviewed, Image Reviewed Problem List - Problems (1) ESRD (end stage renal disease) Assessment/Plan: HD yesterday -monitor, electrolytes, BUN/Cr -Dr Dillon following patient and appreciate input -plan for HD on thursday after procedures Code(s): N18.6 - END STAGE RENAL DISEASE (2) IgA nephropathy Assessment/Plan: currentlt on HD, plan for thu Code(s): N02.8 - RECURRENT AND PERSISTENT HEMATURIA W OTH MORPHOLOGIC CHANGES (3) HTN, goal below 130/80 Assessment/Plan: continue labetolol and norvasc with hold parameters 1L NS bolus given in ED, no further need for additional fluids Code(s): I10 - ESSENTIAL (PRIMARY) HYPERTENSION (4) Prophylactic measure Assessment/Plan: Prophy patient ambulatory however high risk for DVT if immoblilty occurs Dispo Maintain as inpatient Full code Discharge planning Code(s): Z29.9 - ENCOUNTER FOR PROPHYLACTIC MEASURES, UNSPECIFIED (5) Uremia Assessment/Plan: ESRD BUN 35 Cr 6.7 will follow Cr/BUN after HD Code(s): N19 - UNSPECIFIED KIDNEY FAILURE (6) Bacteremia associated with intravascular line Assessment/Plan: permacath removed with new skiley placed Blood and PC tip growing MSSA will dose vanco level per level on HD TTE without vegetations -culture growing MSSA -leukocytosis 18.8 on admission now 6.4 cont to trend WBC, temperature -received Vanco and gentamycin in ED. Vanco dosed by level -ID following and appreciate recommendations -Dr Marques following patient and appreciate input, plan for tunneled cath on 08/09 with revision of AV fistua -monitor for signs of sepsis/bacteremia Code(s): T82.7XXA - INFECT/INFLM REACT D/T OTH CARDI/VASC DEV/IMPLNT/GRFT, INIT ; R78.81 - BACTEREMIA Visit type - Emergency Visit Emergency Visit: Yes ED Registration Date: 08/03/18 Care time: The patient presented to the Emergency Department on the above date and was hospitalized for further evaluation of their emergent condition. - New Patient This patient is new to me today: No - Critical Care Critical Care patient: No - Discharge Referral Referred to [facility] Med P.C.: No
[2018-08-07] MEDS: CALCIUM (OYSTER SHELL) 500 MG TABLET (FP) PO SCH (09:48)
[2018-08-07] MEDS: BACITRACIN 15 GM TUBE TOPICAL OINTMENT TP SCH ×2 (09:48→21:53)
[2018-08-07] MEDS: amLODIPine BESYLATE 5 MG TABLET (FP) PO SCH (09:48)
[2018-08-07] MEDS: LABETALOL HCL 100 MG TABLET (FP) PO SCH ×2 (09:48→21:50)
[2018-08-07 10:13] LABS: HBSAG SCREEN Negative (Negative); HEP A AB, IGM Negative (Negative); HEP B CORE AB, TOT Negative (Negative)
[2018-08-07 13:31] LABS: PLATELET COUNT 358 K/MM3 (134-434)
--- NOTE | 2018-08-07 13:34 | PN ---
Progress Note, Physician History of Present Illness: Pt seen and examined at bedside. She is awake and alert. She denies shortness of breath. - Current Medication List Current Medications: Active Medications Amlodipine Besylate (Norvasc -) 5 mg PO DAILY [facility] Last Admin: 08/07/18 09:48 Dose: 5 mg Bacitracin (Bacitracin -) 1 applic TP BID [facility] Last Admin: 08/07/18 09:48 Dose: 1 applic Calcium Carbonate (Os-Shaheed 500mg -) 500 mg PO DAILY [facility] Last Admin: 08/07/18 09:48 Dose: 500 mg Labetalol HCl (Normodyne -) 300 mg PO BID [facility] Last Admin: 08/07/18 09:48 Dose: 300 mg - Objective Vital Signs: Vital Signs Temperature 99 F 08/07/18 10:00 Pulse Rate 75 08/07/18 10:00 Respiratory Rate 18 08/07/18 10:00 Blood Pressure 129/58 L 08/07/18 10:00 O2 Sat by Pulse Oximetry (%) 99 08/07/18 09:00 Constitutional: Yes: Calm Eyes: Yes: Conjunctiva Clear HENT: Yes: Atraumatic Neck: Yes: Supple Cardiovascular: Yes: S1, S2 Respiratory: Yes: CTA Bilaterally Gastrointestinal: Yes: Normal Bowel Sounds, Soft Genitourinary: Yes: WNL Musculoskeletal: Yes: WNL Extremities: Yes: WNL Edema: No Neurological: Yes: Oriented Psychiatric: Yes: Oriented Labs: CBC, BMP 08/07/18 06:20 08/07/18 06:20 INR, PTT INR 1.03 (0.83-1.09) 08/06/18 13:45 Problem List - Problems (1) ESRD (end stage renal disease) Code(s): N18.6 - END STAGE RENAL DISEASE (2) IgA nephropathy Code(s): N02.8 - RECURRENT AND PERSISTENT HEMATURIA W OTH MORPHOLOGIC CHANGES Assessment/Plan Current Medications Generic Name Dose Route Start Last Admin Trade Name Freq PRN Reason Stop Dose Admin Amlodipine Besylate 5 mg 08/04/18 10:00 08/07/18 09:48 Norvasc - PO 5 mg DAILY [facility] Administration Bacitracin 1 applic 08/05/18 22:00 08/07/18 09:48 Bacitracin - TP 1 applic BID [facility] Administration Calcium Carbonate 500 mg 08/04/18 10:00 08/07/18 09:48 Os-Shaheed 500mg - PO 500 mg DAILY [facility] Administration Labetalol HCl 300 mg 08/03/18 22:00 08/07/18 09:48 Normodyne - PO 300 mg BID [facility] Administration Microbiology 08/05/18 10:15 Blood - Peripheral Venous Blood Culture - Preliminary NO GROWTH OBTAINED AFTER 48 HOURS, INCUBATION TO CONTINUE FOR 3 DAYS. 08/05/18 10:10 Blood - Peripheral Venous Blood Culture - Preliminary NO GROWTH OBTAINED AFTER 48 HOURS, INCUBATION TO CONTINUE FOR 3 DAYS. 08/04/18 08:26 Blood - Pre-Dialysis Blood Culture - Preliminary NO GROWTH OBTAINED AFTER 72 HOURS, INCUBATION TO CONTINUE FOR 2 DAYS. 08/04/18 08:26 Blood - Pre-Dialysis Blood Culture - Preliminary NO GROWTH OBTAINED AFTER 72 HOURS, INCUBATION TO CONTINUE FOR 2 DAYS. Impression 1. ESRD 2. HTN 3. iga nephropathy 4. anemia 5. catheter related bacteremia Plan - pt had HD yesterday - potassium stable - tunneled catheter and AVF revision on Thursday if cultures remains negative - cont to follow cultures
[2018-08-07 15:48] LABS: ALBUMIN 3.4 g/dl (3.4-5.0); BILIRUBIN,TOTAL 0.3 mg/dL (0.2-1); BLOOD UREA NITROGEN 41.8 mg/dL (7-18); CALCIUM 8.1 mg/dL (8.5-10.1); POTASSIUM 3.9 mmol/L (3.5-5.1); TOT PROT 7.3 g/dl (6.4-8.2)
[2018-08-07 15:56] LABS: CREATININE 7.6 mg/dL (0.55-1.3)
[2018-08-07 16:03] LABS: INR 0.99 (0.83-1.09); PROTHROMBIN TIME (PATIENT) 11.7 SEC (9.7-13.0)
--- NOTE | 2018-08-07 18:15 | PN ---
Progress Note, Physician History of Present Illness: Pt seen and examined, events noted. She states she feels much better. Has no new complaints. Tmax 99.8F - Current Medication List Current Medications: Active Medications Amlodipine Besylate (Norvasc -) 5 mg PO DAILY [facility] Last Admin: 08/07/18 09:48 Dose: 5 mg Bacitracin (Bacitracin -) 1 applic TP BID [facility] Last Admin: 08/07/18 09:48 Dose: 1 applic Calcium Carbonate (Os-Shaheed 500mg -) 500 mg PO DAILY [facility] Last Admin: 08/07/18 09:48 Dose: 500 mg Labetalol HCl (Normodyne -) 300 mg PO BID [facility] Last Admin: 08/07/18 09:48 Dose: 300 mg - Objective Vital Signs: Vital Signs Temperature 98.0 F 08/07/18 14:50 Pulse Rate 77 08/07/18 14:50 Respiratory Rate 18 08/07/18 14:50 Blood Pressure 136/74 08/07/18 14:50 O2 Sat by Pulse Oximetry (%) 99 08/07/18 09:00 Constitutional: Yes: No Distress, Calm Cardiovascular: Yes: Regular Rate and Rhythm Respiratory: Yes: Regular Gastrointestinal: Yes: Normal Bowel Sounds, Soft Neurological: Yes: Alert, Oriented Labs: CBC, BMP 08/07/18 06:20 08/07/18 14:45 INR, PTT INR 0.99 (0.83-1.09) 08/07/18 14:45 Microbiology 08/03/18 12:50 Blood - Mckenzie Cath Blood Culture - Final Staphylococcus Latex Coag Pos 08/03/18 11:29 Blood - Peripheral Venous Blood Culture - Final Staphylococcus Latex Coag Pos 08/03/18 16:32 Chest Gram Stain - Final 08/03/18 16:32 Chest Wound Culture - Final Staphylococcus Aureus 08/03/18 11:29 Blood - Peripheral Venous Blood Culture - Final Staphylococcus Aureus 08/03/18 12:42 Blood - Mckenzie Cath Blood Culture - Final Staphylococcus Aureus 08/03/18 16:39 Catheter Site Gram Stain - Final 08/03/18 16:39 Catheter Site Wound Culture - Final Staphylococcus Aureus 08/05/18 10:10 Blood - Peripheral Venous Blood Culture - Preliminary NO GROWTH OBTAINED AFTER 48 HOURS, INCUBATION TO CONTINUE FOR 3 DAYS. 08/05/18 10:15 Blood - Peripheral Venous Blood Culture - Preliminary NO GROWTH OBTAINED AFTER 48 HOURS, INCUBATION TO CONTINUE FOR 3 DAYS. 08/04/18 08:26 Blood - Pre-Dialysis Blood Culture - Preliminary NO GROWTH OBTAINED AFTER 72 HOURS, INCUBATION TO CONTINUE FOR 2 DAYS. 08/04/18 08:26 Blood - Pre-Dialysis Blood Culture - Preliminary NO GROWTH OBTAINED AFTER 72 HOURS, INCUBATION TO CONTINUE FOR 2 DAYS. 08/03/18 20:45 Urine - Urine Clean Catch Urine Culture - Final NO GROWTH OBTAINED Problem List - Problems (1) Bacteremia associated with intravascular line Code(s): T82.7XXA - INFECT/INFLM REACT D/T OTH CARDI/VASC DEV/IMPLNT/GRFT, INIT ; R78.81 - BACTEREMIA (2) ESRD (end stage renal disease) Code(s): N18.6 - END STAGE RENAL DISEASE (3) IgA nephropathy Code(s): N02.8 - RECURRENT AND PERSISTENT HEMATURIA W OTH MORPHOLOGIC CHANGES (4) Sepsis Code(s): A41.9 - SEPSIS, UNSPECIFIED ORGANISM Qualifiers: Sepsis type: sepsis due to unspecified organism Qualified Code(s): A41.9 - Sepsis, unspecified organism (5) Uremia Code(s): N19 - UNSPECIFIED KIDNEY FAILURE Assessment/Plan MSSA Catheter-associated bloodstream infection IgA nephropathy ESRD on HD - continue Cefazolin post HD, given one dose after HD yesterday - latest blood cultures negative - Nephrology following Possible catheter replacement on Thursday Continue monitor temps closely
--- NOTE | 2018-08-08 08:19 | PN ---
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 Pt was recently started on dialysis via left IJ tunneled catheter. Schedule for catheter replacement tomorrow. - Current Medication List Current Medications: Active Medications Amlodipine Besylate (Norvasc -) 5 mg PO DAILY [facility] Last Admin: 08/07/18 09:48 Dose: 5 mg Bacitracin (Bacitracin -) 1 applic TP BID [facility] Last Admin: 08/07/18 21:53 Dose: 1 applic Calcium Carbonate (Os-Shaheed 500mg -) 500 mg PO DAILY [facility] Last Admin: 08/07/18 09:48 Dose: 500 mg Labetalol HCl (Normodyne -) 300 mg PO BID [facility] Last Admin: 08/07/18 21:50 Dose: 300 mg - Objective Vital Signs: Vital Signs Temperature 98.8 F 08/08/18 06:00 Pulse Rate 69 08/08/18 06:00 Respiratory Rate 20 08/08/18 06:00 Blood Pressure 116/60 08/08/18 06:00 O2 Sat by Pulse Oximetry (%) 99 08/07/18 21:00 Young F not in distress, hemodynamically stable HEENT: Mm moist, no anemia, PERRLA EOMI NECK: No JVd No Bruit CHEST: Rt sided permacath ABD: No distention, non tender Bs + EXT: Trace yen afeet [employer]: AOX3 non focal Labs: CBC, BMP 08/07/18 06:20 08/07/18 14:45 INR, PTT INR 0.99 (0.83-1.09) 08/07/18 14:45 Problem List - Problems (1) Sepsis Assessment/Plan: Due to MSSA on IV abx possible source is port schedule for change in am.. Code(s): A41.9 - SEPSIS, UNSPECIFIED ORGANISM Qualifiers: Sepsis type: methicillin susceptible Staphylococcus aureus Qualified Code(s ): A41.01 - Sepsis due to Methicillin susceptible Staphylococcus aureus (2) IgA nephropathy Assessment/Plan: Chronic Code(s): N02.8 - RECURRENT AND PERSISTENT HEMATURIA W OTH MORPHOLOGIC CHANGES (3) ESRD (end stage renal disease) Assessment/Plan: On HD cont as per schedule Code(s): N18.6 - END STAGE RENAL DISEASE (4) HTN, goal below 130/80 Assessment/Plan: Well controlled cont all home meds Code(s): I10 - ESSENTIAL (PRIMARY) HYPERTENSION
[2018-08-08] MEDS: LABETALOL HCL 100 MG TABLET (FP) PO SCH ×2 (09:53→21:21)
[2018-08-08] MEDS: amLODIPine BESYLATE 5 MG TABLET (FP) PO SCH (09:53)
[2018-08-08] MEDS: CALCIUM (OYSTER SHELL) 500 MG TABLET (FP) PO SCH (09:53)
[2018-08-08] MEDS: BACITRACIN 15 GM TUBE TOPICAL OINTMENT TP SCH ×2 (09:54→21:21)
--- NOTE | 2018-08-08 14:26 | PN ---
Progress Note, Physician History of Present Illness: Pt seen and examined at bedside. She is awake and alert. She denies shortness of breath. - Current Medication List Current Medications: Active Medications Amlodipine Besylate (Norvasc -) 5 mg PO DAILY [facility] Last Admin: 08/08/18 09:53 Dose: 5 mg Bacitracin (Bacitracin -) 1 applic TP BID [facility] Last Admin: 08/08/18 09:54 Dose: 1 applic Calcium Carbonate (Os-Shaheed 500mg -) 500 mg PO DAILY [facility] Last Admin: 08/08/18 09:53 Dose: 500 mg Labetalol HCl (Normodyne -) 300 mg PO BID [facility] Last Admin: 08/08/18 09:53 Dose: 300 mg - Objective Vital Signs: Vital Signs Temperature 98.1 F 08/08/18 10:00 Pulse Rate 75 08/08/18 10:00 Respiratory Rate 20 08/08/18 10:00 Blood Pressure 122/66 08/08/18 10:00 O2 Sat by Pulse Oximetry (%) 99 08/08/18 09:00 Constitutional: Yes: Calm Eyes: Yes: Conjunctiva Clear HENT: Yes: Atraumatic Neck: Yes: Supple Cardiovascular: Yes: S1, S2 Respiratory: Yes: CTA Bilaterally Genitourinary: Yes: WNL Musculoskeletal: Yes: WNL Extremities: Yes: Other (fistula with thrill and bruit) Edema: No Neurological: Yes: Oriented Psychiatric: Yes: Oriented Labs: CBC, BMP 08/07/18 06:20 08/07/18 14:45 INR, PTT INR 0.99 (0.83-1.09) 08/07/18 14:45 Problem List - Problems (1) ESRD (end stage renal disease) Code(s): N18.6 - END STAGE RENAL DISEASE (2) IgA nephropathy Code(s): N02.8 - RECURRENT AND PERSISTENT HEMATURIA W OTH MORPHOLOGIC CHANGES Assessment/Plan Current Medications Generic Name Dose Route Start Last Admin Trade Name Freq PRN Reason Stop Dose Admin Amlodipine Besylate 5 mg 08/04/18 10:00 08/08/18 09:53 Norvasc - PO 5 mg DAILY [facility] Administration Bacitracin 1 applic 08/05/18 22:00 08/08/18 09:54 Bacitracin - TP 1 applic BID STACY Administration Calcium Carbonate 500 mg 08/04/18 10:00 08/08/18 09:53 Os-Shaheed 500mg - PO 500 mg DAILY [facility] Administration Labetalol HCl 300 mg 08/03/18 22:00 08/08/18 09:53 Normodyne - PO 300 mg BID STACY Administration Microbiology 08/05/18 10:15 Blood - Peripheral Venous Blood Culture - Preliminary NO GROWTH OBTAINED AFTER 72 HOURS, INCUBATION TO CONTINUE FOR 2 DAYS. 08/05/18 10:10 Blood - Peripheral Venous Blood Culture - Preliminary NO GROWTH OBTAINED AFTER 72 HOURS, INCUBATION TO CONTINUE FOR 2 DAYS. 08/04/18 08:26 Blood - Pre-Dialysis Blood Culture - Preliminary NO GROWTH OBTAINED AFTER 96 HOURS, INCUBATION TO CONTINUE FOR 1 DAYS. 08/04/18 08:26 Blood - Pre-Dialysis Blood Culture - Preliminary NO GROWTH OBTAINED AFTER 96 HOURS, INCUBATION TO CONTINUE FOR 1 DAYS. Impression 1. ESRD 2. HTN 3. iga nephropathy 4. anemia 5. catheter related bacteremia Plan - cont to follow cultures - permacath if cultures neg - check labs tomorrow - renal diet - npo past midnight
--- NOTE | 2018-08-08 15:55 | PN ---
Progress Note, Physician History of Present Illness: Pt is feeling well. Afebrile > 24hrs. Has no complaints. - Current Medication List Current Medications: Active Medications Amlodipine Besylate (Norvasc -) 5 mg PO DAILY [facility] Last Admin: 08/08/18 09:53 Dose: 5 mg Bacitracin (Bacitracin -) 1 applic TP BID [facility] Last Admin: 08/08/18 09:54 Dose: 1 applic Calcium Carbonate (Os-Shaheed 500mg -) 500 mg PO DAILY [facility] Last Admin: 08/08/18 09:53 Dose: 500 mg Labetalol HCl (Normodyne -) 300 mg PO BID [facility] Last Admin: 08/08/18 09:53 Dose: 300 mg - Objective Vital Signs: Vital Signs Temperature 98.7 F 08/08/18 14:27 Pulse Rate 68 08/08/18 14:27 Respiratory Rate 20 08/08/18 14:27 Blood Pressure 117/66 08/08/18 14:27 O2 Sat by Pulse Oximetry (%) 99 08/08/18 09:00 Constitutional: Yes: No Distress, Calm Cardiovascular: Yes: Regular Rate and Rhythm Respiratory: Yes: Regular Gastrointestinal: Yes: Normal Bowel Sounds, Soft Extremities: Yes: WNL Integumentary: Yes: WNL Neurological: Yes: Alert, Oriented Labs: CBC, BMP 08/07/18 06:20 08/07/18 14:45 INR, PTT INR 0.99 (0.83-1.09) 08/07/18 14:45 Microbiology 08/05/18 10:10 Blood - Peripheral Venous Blood Culture - Preliminary NO GROWTH OBTAINED AFTER 72 HOURS, INCUBATION TO CONTINUE FOR 2 DAYS. 08/05/18 10:15 Blood - Peripheral Venous Blood Culture - Preliminary NO GROWTH OBTAINED AFTER 72 HOURS, INCUBATION TO CONTINUE FOR 2 DAYS. 08/04/18 08:26 Blood - Pre-Dialysis Blood Culture - Preliminary NO GROWTH OBTAINED AFTER 96 HOURS, INCUBATION TO CONTINUE FOR 1 DAYS. 08/04/18 08:26 Blood - Pre-Dialysis Blood Culture - Preliminary NO GROWTH OBTAINED AFTER 96 HOURS, INCUBATION TO CONTINUE FOR 1 DAYS. 08/03/18 12:50 Blood - Mckenzie Cath Blood Culture - Final Staphylococcus Latex Coag Pos 08/03/18 11:29 Blood - Peripheral Venous Blood Culture - Final Staphylococcus Latex Coag Pos 08/03/18 16:32 Chest Gram Stain - Final 08/03/18 16:32 Chest Wound Culture - Final Staphylococcus Aureus 08/03/18 11:29 Blood - Peripheral Venous Blood Culture - Final Staphylococcus Aureus 08/03/18 12:42 Blood - Mckenzie Cath Blood Culture - Final Staphylococcus Aureus 08/03/18 16:39 Catheter Site Gram Stain - Final 08/03/18 16:39 Catheter Site Wound Culture - Final Staphylococcus Aureus 08/03/18 20:45 Urine - Urine Clean Catch Urine Culture - Final NO GROWTH OBTAINED Problem List - Problems (1) Bacteremia associated with intravascular line Code(s): T82.7XXA - INFECT/INFLM REACT D/T OTH CARDI/VASC DEV/IMPLNT/GRFT, INIT ; R78.81 - BACTEREMIA (2) ESRD (end stage renal disease) Code(s): N18.6 - END STAGE RENAL DISEASE (3) IgA nephropathy Code(s): N02.8 - RECURRENT AND PERSISTENT HEMATURIA W OTH MORPHOLOGIC CHANGES (4) Sepsis Code(s): A41.9 - SEPSIS, UNSPECIFIED ORGANISM Qualifiers: Sepsis type: methicillin susceptible Staphylococcus aureus Qualified Code(s ): A41.01 - Sepsis due to Methicillin susceptible Staphylococcus aureus (5) Uremia Code(s): N19 - UNSPECIFIED KIDNEY FAILURE Assessment/Plan MSSA Catheter-associated bloodstream infection IgA nephropathy ESRD on HD -- continue Cefazolin post HD, give post HD after next HD -- latest blood cultures no growth thus far -- fever resolved, wbc normal -- permacath placement planned tomorrow -- continue monitor
[2018-08-09 07:06] LABS: BASO % 1.1 % (0-2.0); EOS % 7.2 % (0-4.5); HEMATOCRIT 26.1 % (32.4-45.2); HEMOGLOBIN 8.9 GM/dL (10.7-15.3); LYMPH % 19.8 % (8-40); MCH 30.5 pg (25.7-33.7); MCHC 33.9 g/dl (32.0-36.0); MEAN CELL VOLUME 89.9 fl (80-96); MEAN PLT VOLUME 8.4 fl (7.5-11.1); MONO % 7.7 % (3.8-10.2); NEUT % 64.2 % (42.8-82.8); PLATELET COUNT 336 K/MM3 (134-434); RBC 2.91 M/mm3 (3.60-5.2); RDW 13.8 % (11.6-15.6); WHITE BLOOD COUNT 7.5 K/mm3 (4.0-10.0)
[2018-08-09 07:45] LABS: CALCIUM 8.2 mg/dL (8.5-10.1); POTASSIUM 4.3 mmol/L (3.5-5.1)
[2018-08-09 07:50] LABS: CREATININE 8.8 mg/dL (0.55-1.3)
[2018-08-09] MEDS: LABETALOL HCL 100 MG TABLET (FP) PO SCH ×2 (09:02→21:34)
[2018-08-09] MEDS: CALCIUM (OYSTER SHELL) 500 MG TABLET (FP) PO SCH (09:02)
[2018-08-09] MEDS: amLODIPine BESYLATE 5 MG TABLET (FP) PO SCH (09:03)
[2018-08-09] MEDS: BACITRACIN 15 GM TUBE TOPICAL OINTMENT TP SCH (09:03)
[2018-08-09 10:38] LABS: ANISOCYTOSIS 3+; MACROCYTOSIS 0; PLATELET ESTIMATE NORMAL
--- NOTE | 2018-08-09 11:38 | PN ---
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 Pt was recently started on dialysis via left IJ tunneled catheter. Schedule for catheter replacement tomorrow. - Current Medication List Current Medications: Active Medications Amlodipine Besylate (Norvasc -) 5 mg PO DAILY [facility] Last Admin: 08/09/18 09:03 Dose: 5 mg Bacitracin (Bacitracin -) 1 applic TP BID [facility] Last Admin: 08/09/18 09:03 Dose: 1 applic Calcium Carbonate (Os-Shaheed 500mg -) 500 mg PO DAILY [facility] Last Admin: 08/09/18 09:02 Dose: 500 mg Labetalol HCl (Normodyne -) 300 mg PO BID [facility] Last Admin: 08/09/18 09:02 Dose: 300 mg - Objective Vital Signs: Vital Signs Temperature 98.7 F 08/09/18 10:00 Pulse Rate 84 08/09/18 10:00 Respiratory Rate 18 08/09/18 10:00 Blood Pressure 134/74 08/09/18 10:00 O2 Sat by Pulse Oximetry (%) 98 08/09/18 09:00 Young F not in distress, hemodynamically stable HEENT: Mm moist, no anemia, PERRLA EOMI NECK: No JVd No Bruit CHEST: Rt sided permacath ABD: No distention, non tender Bs + EXT: Trace yen afeet HEAD MECHANIC: AOX3 non focal Labs: CBC, BMP 08/09/18 06:20 08/09/18 06:20 INR, PTT INR 0.99 (0.83-1.09) 08/07/18 14:45 Problem List - Problems (1) ESRD (end stage renal disease) Assessment/Plan: On HD cont as per schedule Code(s): N18.6 - END STAGE RENAL DISEASE (2) HTN, goal below 130/80 Assessment/Plan: Well controlled cont all home meds Code(s): I10 - ESSENTIAL (PRIMARY) HYPERTENSION (3) Sepsis Assessment/Plan: Due to MSSA on IV abx possible source is port schedule for change in am.. Code(s): A41.9 - SEPSIS, UNSPECIFIED ORGANISM Qualifiers: Sepsis type: methicillin susceptible Staphylococcus aureus Qualified Code(s ): A41.01 - Sepsis due to Methicillin susceptible Staphylococcus aureus (4) IgA nephropathy Assessment/Plan: Chronic Code(s): N02.8 - RECURRENT AND PERSISTENT HEMATURIA W OTH MORPHOLOGIC CHANGES
--- NOTE | 2018-08-09 12:29 | PN ---
Progress Note (short form) - Note Progress Note: Renal follow up for ESRD Pt seen and examined at the bedside no acute complaints denies any fever, chills, sob, cp, abd pain Vital Signs Temperature 98.7 F 08/09/18 10:00 Pulse Rate 84 08/09/18 10:00 Respiratory Rate 18 08/09/18 10:00 Blood Pressure 134/74 08/09/18 10:00 O2 Sat by Pulse Oximetry (%) 98 08/09/18 09:00 Intake & Output 08/06/18 08/07/18 08/08/18 08/09/18 23:59 23:59 23:59 23:59 Intake Total 840 100 100 Balance 840 100 100 Weight 77.337 kg 78.16 kg NAD awake and alert neck supple, no JVD CTA soft NT/ND No Le edema CBC, BMP 08/09/18 06:20 08/09/18 06:20 Current Medications Amlodipine Besylate (Norvasc -) 5 mg PO DAILY [facility] Last Admin: 08/09/18 09:03 Dose: 5 mg Bacitracin (Bacitracin -) 1 applic TP BID [facility] Last Admin: 08/09/18 09:03 Dose: 1 applic Calcium Carbonate (Os-Shaheed 500mg -) 500 mg PO DAILY [facility] Last Admin: 08/09/18 09:02 Dose: 500 mg Labetalol HCl (Normodyne -) 300 mg PO BID [facility] Last Admin: 08/09/18 09:02 Dose: 300 mg 38 year old woman with hx of 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 #catheter related bacteremia #ESRD on HD #Hyperetnsion #Anemia repeat cultures negative to have tunneled HD catheter placement today can be discharged home following procedure and resume dialysis as outpatient tomorrow will continue antibiotics with HD (duration to be determined by ID) Thank you Von Dillon DO
--- NOTE | 2018-08-09 12:55 | PN ---
Progress Note, Physician History of Present Illness: stable plan to place catheter - Current Medication List Current Medications: Active Medications Amlodipine Besylate (Norvasc -) 5 mg PO DAILY [facility] Last Admin: 08/09/18 09:03 Dose: 5 mg Bacitracin (Bacitracin -) 1 applic TP BID [facility] Last Admin: 08/09/18 09:03 Dose: 1 applic Calcium Carbonate (Os-Shaheed 500mg -) 500 mg PO DAILY [facility] Last Admin: 08/09/18 09:02 Dose: 500 mg Labetalol HCl (Normodyne -) 300 mg PO BID [facility] Last Admin: 08/09/18 09:02 Dose: 300 mg - Objective Vital Signs: Vital Signs Temperature 98.7 F 08/09/18 10:00 Pulse Rate 84 08/09/18 10:00 Respiratory Rate 18 08/09/18 10:00 Blood Pressure 134/74 08/09/18 10:00 O2 Sat by Pulse Oximetry (%) 98 08/09/18 09:00 Constitutional: Yes: No Distress, Calm Cardiovascular: Yes: Regular Rate and Rhythm Respiratory: Yes: Regular, CTA Bilaterally Musculoskeletal: Yes: WNL Extremities: Yes: WNL Labs: CBC, BMP 08/09/18 06:20 08/09/18 06:20 INR, PTT INR 0.99 (0.83-1.09) 08/07/18 14:45 Assessment/Plan Problem List - Problems (1) Infection Code(s): B99.9 - UNSPECIFIED INFECTIOUS DISEASE (2) ESRD (end stage renal disease) Code(s): N18.6 - END STAGE RENAL DISEASE (3) IgA nephropathy Code(s): N02.8 - RECURRENT AND PERSISTENT HEMATURIA W OTH MORPHOLOGIC CHANGES (4) HTN, goal below 130/80 Code(s): I10 - ESSENTIAL (PRIMARY) HYPERTENSION (5) Prophylactic measure Code(s): Z29.9 - ENCOUNTER FOR PROPHYLACTIC MEASURES, UNSPECIFIED (6) Uremia Code(s): N19 - UNSPECIFIED KIDNEY FAILURE 7 gm positive bacteremia plan continue current mgmt rest as per the team cefazolin dialysis will need it for at least 2- 3 weeks
[2018-08-09] MEDS ORDERED: LIDOCAINE HCL 1%, 10 MG/ML (20ML VIAL) ONE (13:15)
[2018-08-09] MEDS ORDERED: HEPARIN NA (PORCINE) 5,000 UNITS/ML 1ML VIAL ONE (13:15)
[2018-08-09] MEDS ORDERED: PAPAVERINE HCL 30 MG/1 ML 10 ML VIAL NR ONE (13:24)
--- NOTE | 2018-08-09 14:05 | DS ---
Physical Examination Vital Signs: Vital Signs Temperature 98.7 F 08/09/18 10:00 Pulse Rate 84 08/09/18 10:00 Respiratory Rate 18 08/09/18 10:00 Blood Pressure 134/74 08/09/18 10:00 O2 Sat by Pulse Oximetry (%) 98 08/09/18 09:00 Young F not in distress, hemodynamically stable HEENT: Mm moist, no anemia, PERRLA EOMI NECK: No JVd No Bruit CHEST: Rt sided permacath ABD: No distention, non tender Bs + EXT: Trace edema feet [place] MIXER OPERATOR: AOX3 non focal Labs: CBC, BMP 08/09/18 06:20 08/09/18 06:20 Discharge Summary Reason For Visit: CELLULITIS,SESPIS,ESRD Current Active Problems Bacteremia associated with intravascular line (Acute) ESRD (end stage renal disease) (Acute) IgA nephropathy (Acute) Infection (Acute) Sepsis (Acute) Hospital Course: 38 yrs old F with h/O HTN, IgA nephropathy on HD via Portacath present with fever and chills, received IV Vancomycin Blood Culture Grew MSSA, switched to IV Cefazolin 3 gm Post HD, possible source of infection is port , today patient underwent port change ID recommended total 3wks of abx , plan discuss with patient, patient will get IV Cefazolin 3 gm post Dialysis at HD Ctr, Neurologist is aware about the plan, patient is stable, rpt blood cultures are - ve. Condition: Stable - Instructions Referrals: Jillian Littlejohn MD [Staff Physician] - Disposition: HOME - Home Medications Comprehensive Discharge Medication List: Ambulatory Orders Labetalol HCl 300 mg PO BID 06/29/18 Amlodipine Besylate [Norvasc -] 5 mg PO DAILY tablet 07/02/18 Calcium (Oyster Shell) [Os-Shaheed 500MG -] 500 mg PO DAILY #60 tablet 07/02/18 Cefazolin Sodium in 0.9 % NaCl [Cefazolin 3 G/100 ml-0.9% NaCl] 3 gm IV Q72H 14 Days #6 piggyback 08/09/18
[2018-08-09] MEDS ORDERED: ONDANSETRON 4 MG/2 ML VIAL IVPUSH PRN ×2 (14:43→17:27)
[2018-08-09] MEDS ORDERED: BUPIVACAINE HCL/PF 0.5% (5MG/ML) 10 ML VIAL ONE (15:07)
[2018-08-09] MEDS ORDERED: MIDAZOLAM HCL 2 MG/2 ML SINGLE DOSE VIAL ONE ×3 (15:10→16:15)
[2018-08-09] MEDS ORDERED: ceFAZolin SODIUM 1 GM VIAL IVPB ONE (15:27)
[2018-08-09] MEDS ORDERED: PROPOFOL 20 ML ONE (15:31)
[2018-08-09] MEDS ORDERED: SUCCINYLCHOLINE CHLORIDE 200 MG/10 ML SYRINGE ONE (15:31)
[2018-08-09] MEDS ORDERED: ceFAZolin SODIUM 1 GM VIAL ONE (15:40)
[2018-08-09] MEDS ORDERED: LIDOCAINE HCL 1%, 10 MG/ML (20ML VIAL) INF ONE (16:20)
[2018-08-09] MEDS ORDERED: POVIDONE-IODINE OINTMENT 10% - 28.4 GM TUBE ONE (16:29)
[2018-08-09] MEDS ORDERED: POVIDONE-IODINE 10% SOLN 118 ML BOTTLE TP ONE (16:51)
[2018-08-09] MEDS ORDERED: oxyCODONE HCL 5 MG TABLET PO PRN ×2 (17:23)
--- NOTE | 2018-08-09 17:24 | OP ---
Operative Note - Note: Operative Date: 08/09/18 Pre-Operative Diagnosis: ESRD on HD Operation: Placement Permacath. Revision left arm AV fistula with exteriorization Findings: Patent right IJV Left arm basilic vein fistula > 10 mm diameter. Implants: 19 cm TTC Permacath Surgeon: Tate Marques Saw Boss: Bri Horta Anesthesiologist/FISH FLIPPER: Cem Marvin Anesthesia: MAC Estimated Blood Loss (mls): 20
[2018-08-09] MEDS ORDERED: ACETAMINOPHEN 1000 MG/100 ML VIAL (NON FORMULARY) IVPB ONE (17:25)
--- NOTE | 2018-08-09 17:31 | SURG ---
Surgery Director Banking Note Director Banking: Bri Horta PA-C Date of Service: 08/09/18 Diagnosis: ESRD on HD Procedure: Placement Permacath. Revision left arm AV fistula with exteriorization I was present for the entirety of the operative procedure. For further detail, please refer to operative report. Visit type - Case Type Case Type: ED Admission - Emergency Emergency Visit: Yes ED Registration Date: 08/03/18 Care time: The patient presented to the Emergency Department on the above date and was hospitalized for further evaluation of their emergent condition. - New patient This patient is new to me today: Yes Date on this admission: 08/09/18
[2018-08-09] MEDS ORDERED: ACETAMINOPHEN INJECTION 100 ML IVPB ONE (17:33)
[2018-08-09] MEDS ORDERED: BACITRACIN 15 GM TUBE TOPICAL OINTMENT TP SCH (22:00)
[2018-08-10] MEDS: ACETAMINOPHEN 325 MG TABLET (FP) PO PRN ×3 (05:14→17:34)
[2018-08-10 07:34] LABS: ALBUMIN 3.3 g/dl (3.4-5.0); BILIRUBIN,TOTAL 0.3 mg/dL (0.2-1); BLOOD UREA NITROGEN 59.2 mg/dL (7-18); CALCIUM 8.2 mg/dL (8.5-10.1); POTASSIUM 4.6 mmol/L (3.5-5.1); TOT PROT 6.8 g/dl (6.4-8.2)
[2018-08-10 08:19] LABS: BASO % 0.6 % (0-2.0); EOS % 2.8 % (0-4.5); HEMATOCRIT 25.2 % (32.4-45.2); HEMOGLOBIN 8.4 GM/dL (10.7-15.3); LYMPH % 14.6 % (8-40); MCH 30.3 pg (25.7-33.7); MCHC 33.5 g/dl (32.0-36.0); MEAN CELL VOLUME 90.7 fl (80-96); MEAN PLT VOLUME 8.4 fl (7.5-11.1); MONO % 4.8 % (3.8-10.2); NEUT % 77.2 % (42.8-82.8); PLATELET COUNT 354 K/MM3 (134-434); RBC 2.78 M/mm3 (3.60-5.2); RDW 13.7 % (11.6-15.6); WHITE BLOOD COUNT 10.1 K/mm3 (4.0-10.0)
[2018-08-10 08:41] LABS: CREATININE 8.9 mg/dL (0.55-1.3)
[2018-08-10] MEDS: LABETALOL HCL 100 MG TABLET (FP) PO SCH (09:01)
--- NOTE | 2018-08-10 09:22 | PN ---
Progress Note (short form) - Note Progress Note: 38yo F s/p permacath placement and AVF revision POD 1, pt seen and examined at bedside. Pt states she is feeling well only complaining of some Lt arm soreness around incision. Pt denies fever, chills, n/v. Last Vital Signs Temp Pulse Resp BP Pulse Ox 98.7 F 75 18 128/74 99 08/10/18 06:00 08/10/18 06:00 08/10/18 06:00 08/10/18 06:00 08/09/18 20:59 CBC, BMP 08/10/18 06:00 08/10/18 06:00 PE Gen: A&O x3 Resp: breathing comfortably Chest: Rt chest incisions are clean with no erythema or discharge, permacath in place. Ext: LUE shows good thrill over AVF, radial pulse intact, mild tenderness with palpation Problem List - Problems (1) ESRD (end stage renal disease) Assessment/Plan: Plan -pt appears to be doing well and is cleared for discharge from vascular standpoint -abx as per ID -pt should follow up with Dr. Marques in 2 weeks for outpatient follow up. Code(s): N18.6 - END STAGE RENAL DISEASE
[2018-08-10] MEDS ORDERED: CALCIUM (OYSTER SHELL) 500 MG TABLET (FP) PO SCH (10:00)
[2018-08-10] MEDS ORDERED: amLODIPine BESYLATE 5 MG TABLET (FP) PO SCH (10:00)
[2018-08-10 10:10] LABS: ANISOCYTOSIS 1+; MACROCYTOSIS 0; OVALOCYTE 1+; PLATELET ESTIMATE NORMAL
--- NOTE | 2018-08-10 11:49 | PN ---
Progress Note, Physician History of Present Illness: stable no new issues - Current Medication List Current Medications: Active Medications Acetaminophen (Tylenol -) 650 mg PO Q6H PRN PRN Reason: FEVER Last Admin: 08/10/18 10:18 Dose: 650 mg Amlodipine Besylate (Norvasc -) 5 mg PO DAILY [facility] Last Admin: 08/10/18 09:01 Dose: 5 mg Calcium Carbonate (Os-Shaheed 500mg -) 500 mg PO DAILY [facility] Last Admin: 08/10/18 09:01 Dose: 500 mg Epoetin Karl (Procrit -) 10,000 unit IVPUSH ONCE ONE Stop: 08/10/18 11:10 Sodium Chloride (Normal Saline -) 250 mls @ 3,000 mls/hr IV PRN PRN PRN Reason: Hypotension during Dialysis Stop: 08/11/18 11:09 Cefazolin Sodium/Dextrose (Ancef 2 Gm Premixed Ivpb -) 2 gm in 50 mls @ 100 mls /hr IVPB ONCE ONE Stop: 08/10/18 11:39 Labetalol HCl (Normodyne -) 300 mg PO BID [facility] Last Admin: 08/10/18 09:01 Dose: 300 mg Oxycodone HCl (Roxicodone -) 5 mg PO Q4H PRN PRN Reason: PAIN LEVEL 1-5 Last Admin: 08/10/18 05:17 Dose: 5 mg Oxycodone HCl (Roxicodone -) 10 mg PO Q4H PRN PRN Reason: PAIN LEVEL 6-10 - Objective Vital Signs: Vital Signs Temperature 98.3 F 08/10/18 09:50 Pulse Rate 74 08/10/18 09:50 Respiratory Rate 18 08/10/18 09:50 Blood Pressure 147/81 08/10/18 09:50 O2 Sat by Pulse Oximetry (%) 98 08/10/18 09:00 Constitutional: Yes: No Distress, Calm Cardiovascular: Yes: Regular Rate and Rhythm Respiratory: Yes: Regular, CTA Bilaterally Gastrointestinal: Yes: Normal Bowel Sounds, Soft Musculoskeletal: Yes: WNL Extremities: Yes: WNL Wound/Incision: Yes: Dressing Dry and Intact Neurological: Yes: Alert, Oriented Psychiatric: Yes: Alert, Oriented Labs: CBC, BMP 08/10/18 06:00 08/10/18 06:00 INR, PTT INR 0.99 (0.83-1.09) 08/07/18 14:45 Assessment/Plan Problem List - Problems (1) Infection Code(s): B99.9 - UNSPECIFIED INFECTIOUS DISEASE (2) ESRD (end stage renal disease) Code(s): N18.6 - END STAGE RENAL DISEASE (3) IgA nephropathy Code(s): N02.8 - RECURRENT AND PERSISTENT HEMATURIA W OTH MORPHOLOGIC CHANGES (4) HTN, goal below 130/80 Code(s): I10 - ESSENTIAL (PRIMARY) HYPERTENSION (5) Prophylactic measure Code(s): Z29.9 - ENCOUNTER FOR PROPHYLACTIC MEASURES, UNSPECIFIED (6) Uremia Code(s): N19 - UNSPECIFIED KIDNEY FAILURE 7 gm positive bacteremia plan continue current mgmt rest as per the team cefazolin dialysis will need it for at least 2- 3 weeks
--- NOTE | 2018-08-10 14:52 | DS ---
Physical Exam: SUBJECTIVE: Patient seen and examined at the bedside. in no acute distress. eating lunch, only having sore left arm. No nausea or vomiting. Patient later seen at dialysis, reports feeling well, wants to go home. OBJECTIVE: Per ID, patient will need 2 more weeks of IV antibiotics. This is a 38 year old woman with hx of 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 Pt was recently started on dialysis via left IJ tunneled catheter. She presents with Fever of 102 in the ER. No SOB, abd pain, N/V/D, dysuria. Has diffuse body aches. Vital Signs Period Temp Pulse Resp BP Sys/James Pulse Ox Last 24 Hr 97.6 F-98.7 F 62-75 14-20 115-147/64-82 95-99 PHYSICAL EXAM GENERAL: The patient is awake, alert, and fully oriented, in no acute distress. HEAD: Normal with no signs of trauma. EYES: PERRL, extraocular movements intact, sclera anicteric, conjunctiva clear. ENT: Ears normal, nares patent, oropharynx clear without exudates, moist mucous membranes. NECK: Trachea midline, full range of motion, supple. LUNGS: Breath sounds equal, clear to auscultation bilaterally HEART: Regular rate and rhythm ABDOMEN: Soft, nontender, nondistended, normoactive bowel sounds, no guarding, no rebound, no hepatosplenomegaly, no masses. EXTREMITIES: left arm pain s/p AVF fistula. NEUROLOGICAL: Normal speech, gait not observed. PSYCH: Normal mood, normal affect. SKIN: Warm, dry, normal turgor, no rashes or lesions noted. LABS Laboratory Results - last 24 hr 08/09/18 08/10/18 08/10/18 14:30 06:00 06:00 WBC 10.1 H RBC 2.78 L Hgb 8.4 L Hct 25.2 L MCV 90.7 MCH 30.3 MCHC 33.5 RDW 13.7 Plt Count 354 MPV 8.4 Absolute Neuts (auto) 7.8 Neutrophils % 77.2 D Neutrophils % (Manual) 76.0 Band Neutrophils % 0.0 Lymphocytes % 14.6 D Lymphocytes % (Manual) 15.0 D Monocytes % 4.8 Monocytes % (Manual) 2 L Eosinophils % 2.8 Eosinophils % (Manual) 4.0 Basophils % 0.6 Basophils % (Manual) 0.0 Myelocytes % (Man) 2 D Promyelocytes % (Man) 0 Blast Cells % (Manual) 0 Nucleated RBC % 0 Metamyelocytes 1 D Hypochromia 0 Platelet Estimate Normal Polychromasia 1+ Poikilocytosis 1+ Anisocytosis 1+ Microcytosis 1+ Macrocytosis 0 Ovalocytes 1+ Philly Cells 1+ Sodium 137 Potassium 4.6 Chloride 106 Carbon Dioxide 21 Anion Gap 10 BUN 59.2 H Creatinine 8.9 H* Est GFR (CKD-EPI)AfAm 5.81 Est GFR (CKD-EPI)NonAf 5.01 Random Glucose 82 Calcium 8.2 L Total Bilirubin 0.3 AST 40 H ALT 18 Alkaline Phosphatase 148 H Total Protein 6.8 Albumin 3.3 L Serum , Qual Negative HOSPITAL COURSE: Date of Admission:08/03/18 Date of Discharge: 08/10/18 This is a 38 year old woman with hx of 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 Pt was recently started on dialysis via left IJ tunneled catheter.She presented to the ED with + Fever of 102, abd pain, N/V/D, dysuria and diffuse body aches. HOSPITAL COURSE BY PROBLEM LIST: Bacteremia associated with intravascular line Permacath removed with new shiley placed Blood and tip grow Staph Aureus TTE without vegetations Leukocytosis 18.8 on admission now within normal limits. will need Cefazolin for at least 2- 3 weeks with dialysis per ID. Dr Marques follow up as an outpatient. ESRD (end stage renal disease) HD today and then will be discharged home with outpatient HD. She will continue IV antibiotics with dialysis. Patient followed by renal during hospital stay. IgA nephropathy currently on HD HTN, goal below 130/80 continue labetolol and norvasc DISCHARGE PLAN: Discharge home. outpatient HD. Minutes to complete discharge: 60 Discharge Summary Reason For Visit: CELLULITIS,SESPIS,ESRD Current Active Problems Bacteremia associated with intravascular line (Acute) ESRD (end stage renal disease) (Acute) IgA nephropathy (Acute) Infection (Acute) Sepsis (Acute) Condition: Stable - Instructions Diet, Activity, Other Instructions: Dr. Marques Discharge Instructions Dear AC LOVE, Post Operative Instructions Physical activity Resume your normal everyday activity as tolerated no heavy lifting or exercise until seen by your surgeon. You may walk unlimited amounts of and climb stairs. You may resume driving the car when you feel safe and comfortable behind the wheel and are no longer taking narcotics. Wound care Keep incisions clean and dry. DO NOT shower with permacath. Cover incisions with clean dry dressing to avoid jose getting caught on clothing etc. Diet There are no dietary restrictions. Eat healthy, high-fiber foods. Drink 6 to 8 glasses of liquid each day. This will assist in keeping your bowels are regular. Pain management You may take Tylenol or acetaminophen. Any pain prescription medication ordered should be taken as prescribed for moderate to severe pain. Call Dr. Marques for any of the following: Severe pain not relieved by medication Fever of 101 or higher Excessive bleeding or drainage on dressing Inability to urinate If you experience any chest pain or shortness of breath please seek emergency treatment immediately. Call Dr Marques's office to make an appointment for 2 weeks post op. DIALYSIS: Your next dialysis is on 08/12/2018 at [facility]. Thank you for allowing us to care for you. Referrals: Jillian Littlejohn MD [Staff Physician] - Disposition: HOME - Home Medications Comprehensive Discharge Medication List: Ambulatory Orders Labetalol HCl 300 mg PO BID 06/29/18 Amlodipine Besylate [Norvasc -] 5 mg PO DAILY tablet 07/02/18 Calcium (Oyster Shell) [Os-Shaheed 500MG -] 500 mg PO DAILY #60 tablet 07/02/18 Cefazolin Sodium in 0.9 % NaCl [Cefazolin 3 G/100 ml-0.9% NaCl] 3 gm IV Q72H 14 Days #6 piggyback 08/09/18 This patient is new to me today: Yes Date on this admission: 08/10/18 Emergency Visit: Yes ED Registration Date: 08/03/18 Care time: The patient presented to the Emergency Department on the above date and was hospitalized for further evaluation of their emergent condition. Critical Care patient: No - Discharge Referral Referred to [facility] No
[2018-08-10] MEDS ORDERED: EPOETIN ALFA 10,000 UNIT/1 ML VIAL IVPUSH ONE (15:00)
[2018-08-10] MEDS ORDERED: CEFAZOLIN 2 GM/D5W 2 GM/50 ML ML IVPB ONE (15:00)
[2018-08-10] MEDS ORDERED: SODIUM CHLORIDE 250 ML IV PRN (15:00)
--- NOTE | 2018-08-10 15:59 | PN ---
Progress Note (short form) - Note Progress Note: Renal follow up for ESRD pt seen and examined during dialysis BP stable, catheter with good flow c/o some tenderness in AVF site on cp, abd pain, N/V/D, fever or chills Vital Signs Temperature 98.4 F 08/10/18 14:33 Pulse Rate 66 08/10/18 15:45 Respiratory Rate 18 08/10/18 15:45 Blood Pressure 133/83 08/10/18 15:45 O2 Sat by Pulse Oximetry (%) 98 08/10/18 09:00 Intake & Output 08/07/18 08/08/18 08/09/18 08/10/18 23:59 23:59 23:59 23:59 Intake Total 100 100 900 730 Balance 100 100 900 730 Weight 77.337 kg 78.16 kg 77.746 kg NAD awake and alert neck supple, no JVD CTA soft NT/ND No Le edema CBC, BMP 08/10/18 06:00 08/10/18 06:00 Current Medications Acetaminophen (Tylenol -) 650 mg PO Q6H PRN PRN Reason: FEVER Last Admin: 08/10/18 10:18 Dose: 650 mg Amlodipine Besylate (Norvasc -) 5 mg PO DAILY [facility] Last Admin: 08/10/18 09:01 Dose: 5 mg Calcium Carbonate (Os-Shaheed 500mg -) 500 mg PO DAILY [facility] Last Admin: 08/10/18 09:01 Dose: 500 mg Sodium Chloride (Normal Saline -) 250 mls @ 3,000 mls/hr IV PRN PRN PRN Reason: Hypotension during Dialysis Stop: 08/11/18 14:59 Labetalol HCl (Normodyne -) 300 mg PO BID [facility] Last Admin: 08/10/18 09:01 Dose: 300 mg Oxycodone HCl (Roxicodone -) 5 mg PO Q4H PRN PRN Reason: PAIN LEVEL 1-5 Last Admin: 08/10/18 05:17 Dose: 5 mg Oxycodone HCl (Roxicodone -) 10 mg PO Q4H PRN PRN Reason: PAIN LEVEL 6-10 38 year old woman with hx of 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 #catheter related bacteremia #ESRD on HD #Hypertension #Anemia Repeat cultures negative thus far new catheter in place tolerated dialysis well will need Ancef with hd x 2 additional weeks, will arrange with outpatient dialysis vascular surgery intervention appreciated stable for discharge with outpatient follow up Thank you Von Dillon DO
[2018-08-10 17:39] VITALS: BP 143/85; PULSE 81; TEMP 98.2
== END 2018-08-10 18:00 | disposition home or self-care (01) | DRG 182 ==
LOC: JER 10:45 → SUPCPDRO 10:45 → JERBED 13:12 → MERGE 13:12 → J7W 14:52
PROVIDERS: ATTEND Nurse Practitioner Family
PROC: 05HM33Z Insertion of Infusion Device into Right Internal Jugular Vein, Percutaneous Approach (ICD-10-PCS; 2018-08-04)
PROC: 05HM33Z Insertion of Infusion Device into Right Internal Jugular Vein, Percutaneous Approach (ICD-10-PCS; principal; 2018-08-09 15:30)
PROC: 05WY33Z Revision of Infusion Device in Upper Vein, Percutaneous Approach (ICD-10-PCS; 2018-08-09 15:30)
PROC: 5A1D70Z Performance of Urinary Filtration, Intermittent, Less than 6 Hours Per Day (ICD-10-PCS; 2018-08-10)
DX: T82.7XXA Infection and inflammatory reaction due to other cardiac and vascular devices, implants and grafts, initial encounter (principal); N18.6 End stage renal disease; R78.81 Bacteremia; Y83.9 Surgical procedure, unspecified as the cause of abnormal reaction of the patient, or of later complication, without mention of misadventure at the time of the procedure; E11.21 Type 2 diabetes mellitus with diabetic nephropathy; D63.1 Anemia in chronic kidney disease; I12.0 Hypertensive chronic kidney disease with stage 5 chronic kidney disease or end stage renal disease; E11.22 Type 2 diabetes mellitus with diabetic chronic kidney disease; Z99.2 Dependence on renal dialysis
CPT/HCPCS: 36415; 71045-TC-FY; 76000-TC-FY; 80048; 80053; 81003; 82803; 83605; 83735; 84100; 84484; 84703; 85025; 85610; 85730; 86704; 86706; 86708; 86803; 87040; 87070; 87086; 87186; 87205; 87340; 93005; 93010; 93306-TC; 94760; 99285-25; G0480; J0131; J0885; J1644; J7030

== ENCOUNTER 2018-09-08 22:59 | Inpatient (IN) | payer OTHER ==
[2018-09-08] MEDS ORDERED: ACETAMINOPHEN 1000 MG/100 ML VIAL (NON FORMULARY) IVPB ONE (23:22)
[2018-09-08] MEDS ORDERED: ACETAMINOPHEN INJECTION 100 ML IVPB ONE (23:55)
[2018-09-09] MEDS ORDERED: GENTAMICIN INJECTION 100 MG in SODIUM CHLORIDE 97.5 ML IVPB ONE (00:04)
[2018-09-09] MEDS ORDERED: VANCOMYCIN 1 GM in D5W (PRE-DOCKED) 1,000 MG/250 ML IVPB ONE (00:04)
[2018-09-09 00:16] LABS: BASO % 0.2 % (0-2.0); EOS % 0.8 % (0-4.5); HEMATOCRIT 28.8 % (32.4-45.2); HEMOGLOBIN 9.5 GM/dL (10.7-15.3); LYMPH % 2.5 % (8-40); MCH 28.5 pg (25.7-33.7); MEAN CELL VOLUME 86.6 fl (80-96); MEAN PLT VOLUME 7.9 fl (7.5-11.1); MONO % 1.3 % (3.8-10.2); NEUT % 95.2 % (42.8-82.8); PLATELET COUNT 290 K/MM3 (134-434); RBC 3.33 M/mm3 (3.60-5.2); RDW 16.3 % (11.6-15.6); WHITE BLOOD COUNT 14.9 K/mm3 (4.0-10.0)
[2018-09-09 00:17] LABS: VENOUS PC02 37.1 mmHg (41-51); VENOUS PH 7.41 (7.31-7.41); VENOUS PO2 58.8 mmHg (30-40)
[2018-09-09 00:44] LABS: INR 0.94 (0.83-1.09); PROTHROMBIN TIME (PATIENT) 11.1 SEC (9.7-13.0)
[2018-09-09 00:47] LABS: ACTIVATED PTT 33.6 SECONDS (25.2-36.5)
[2018-09-09 00:49] LABS: EPI CELLS 1.9 /HPF (0-5/HPF); HYALINE CASTS 0 /lpf (0-8); PH,URINE 8.5 (5.0-8.0); URINE APPEARANCE CLEAR; URINE BACTERIA 166.4 /hpf (NEGATIVE); URINE BILIRUBIN NEGATIVE (NEGATIVE); URINE COLOR YELLOW; URINE GLUCOSE (UA) NEGATIVE (NEGATIVE); URINE KETONE NEGATIVE (NEGATIVE); URINE LEUK ESTERASE NEGATIVE (NEGATIVE); URINE NITRITE NEGATIVE (NEGATIVE); URINE PROTEIN 2+ (NEGATIVE); URINE RBC 1 /hpf (0-4); URINE UROBILINOGEN 0.2 mg/dL (0.2-1.0); URINE WBC 2 /hpf (0-5)
[2018-09-09 00:56] LABS: ALBUMIN 3.4 g/dl (3.4-5.0); BILIRUBIN,TOTAL 0.4 mg/dL (0.2-1); BLOOD UREA NITROGEN 39.4 mg/dL (7-18); CALCIUM 8.3 mg/dL (8.5-10.1); POTASSIUM 4.5 mmol/L (3.5-5.1); TOT PROT 7.2 g/dl (6.4-8.2)
[2018-09-09 01:01] LABS: CREATININE 7.6 mg/dL (0.55-1.3)
[2018-09-09] MEDS ORDERED: VANCOMYCIN 1 GRAM (PRE-DOCKED) 1,000 MG/250 ML BAG IVPB ONE (01:03)
--- NOTE | 2018-09-09 01:29 | PDOC ---
History of Present Illness - General Chief Complaint: SIRS, Suspected/Possible Stated Complaint: fever/redness to dialysis port Time Seen by Provider: 09/08/18 23:17 History Source: Patient Exam Limitations: No Limitations - History of Present Illness Initial Comments: 09/09/18 01:26 38yo F with PMH of ESRD (HD //), HTN presenting to ED with complaints of fever, malaise and R sided neck pain that started today. Pt was in her usual state of health yesterday. She has a R permacath and L AVF from which she gets dialysis, both access sites were used yesterday. The permacath and avf have been present for one month. She had a L permacath prior which she states was removed due to infection. Denies cough, chest pain, congestion, sob, headaches, changes in vision, abdominal pain, n/v/d, urinary symptoms, travel. Still able to produce urine PMD: Sayra Renal: Jose E Littlejohn PMH: see hpi PSH: see hpi Meds: labetalol Allergies: nkda Past History - Past Medical History Allergies/Adverse Reactions: Allergies Allergy/AdvReac Type Severity Reaction Status Date / Time No Known Allergies Allergy Verified 09/08/18 23:07 Home Medications: Ambulatory Orders Labetalol HCl 300 mg PO BID 06/29/18 Amlodipine Besylate [Norvasc -] 5 mg PO DAILY tablet 07/02/18 Calcium (Oyster Shell) [Os-Shaheed 500MG -] 500 mg PO DAILY #60 tablet 07/02/18 Cefazolin Sodium in 0.9 % NaCl [Cefazolin 3 G/100 ml-0.9% NaCl] 3 gm IV Q72H 14 Days #6 piggyback 08/09/18 Anemia: Yes COPD: No CHF: No Dialysis: (ESRD-TUE/THUR/SAT) GI Disorders: Yes (ESRD) Disorders: Yes (Dialysis tu, , sat) HTN: Yes - Immunization History Immunization Up to Date: Yes - Suicide/Smoking/Psychosocial Hx Smoking History: Unknown if ever smoked Have you smoked in the past 12 months: No Number of Cigarettes Smoked Daily: 0 Cigars Per Day: 0 Information on smoking cessation initiated: No Hx Alcohol Use: No Drug/Substance Use Hx: No *Physical Exam - Vital Signs Last Vital Signs Temp Pulse Resp BP Pulse Ox 102.5 F H 107 H 16 158/67 100 09/08/18 23:05 09/08/18 23:05 09/08/18 23:05 09/08/18 23:05 09/08/18 23:05 ED Treatment Course - LABORATORY CBC & Chemistry Diagram: 09/08/18 23:45 09/08/18 23:45 - ADDITIONAL ORDERS Additional order review: Laboratory Results 09/09/18 09/08/18 09/08/18 00:18 23:45 23:45 PT with INR INR PTT (Actin FS) VBG pH POC VBG pCO2 POC VBG pO2 VBG HCO3 VBG O2 Sat (Sera) VBG Base Excess Sodium Potassium Chloride Carbon Dioxide Anion Gap BUN Creatinine Est GFR (CKD-EPI)AfAm Est GFR (CKD-EPI)NonAf Random Glucose Lactic Acid 1.2 Calcium Total Bilirubin AST ALT Alkaline Phosphatase Troponin I < 0.02 Total Protein Albumin Urine Color Yellow Urine Appearance Clear Urine pH 8.5 H D Ur Specific [place] 1.009 L Urine Protein 2+ H Urine Glucose (UA) Negative Urine Ketones Negative Urine Blood Trace Urine Nitrite Negative Urine Bilirubin Negative Urine Urobilinogen 0.2 Ur Leukocyte Esterase Negative Urine WBC (Auto) 2 Urine RBC (Auto) 1 Urine Casts (Auto) 0 U Epithel Cells (Auto) 1.9 Urine Bacteria (Auto) 166.4 09/08/18 09/08/18 09/08/18 23:45 23:45 23:45 PT with INR 11.10 INR 0.94 PTT (Actin FS) 33.6 VBG pH 7.41 POC VBG pCO2 37.1 L POC VBG pO2 58.8 H VBG HCO3 23.0 VBG O2 Sat (Sera) 88.4 H VBG Base Excess -0.8 Sodium 135 L Potassium 4.5 Chloride 100 Carbon Dioxide 24 Anion Gap 11 BUN 39.4 H Creatinine 7.6 H* Est GFR (CKD-EPI)AfAm 7.03 Est GFR (CKD-EPI)NonAf 6.06 Random Glucose 97 Lactic Acid Calcium 8.3 L Total Bilirubin 0.4 AST 11 L ALT 11 L Alkaline Phosphatase 139 H Troponin I Total Protein 7.2 Albumin 3.4 Urine Color Urine Appearance Urine pH Ur Specific [place] Urine Protein Urine Glucose (UA) Urine Ketones Urine Blood Urine Nitrite Urine Bilirubin Urine Urobilinogen Ur Leukocyte Esterase Urine WBC (Auto) Urine RBC (Auto) Urine Casts (Auto) U Epithel Cells (Auto) Urine Bacteria (Auto) 09/08/18 23:45 RBC 3.33 L MCV 86.6 MCHC 33.0 RDW 16.3 H MPV 7.9 Neutrophils % 95.2 H D Lymphocytes % 2.5 L D Monocytes % 1.3 L Eosinophils % 0.8 Basophils % 0.2 - RADIOLOGY Radiology Studies Ordered: Category Date Time Status CHEST X-RAY PORTABLE* [RAD] Stat Radiology 09/09/18 00:01 Ordered DUPLEX VASCUL US-1 ARM [US] Stat Ultrasound 09/09/18 00:16 Taken - Medications Given in the ED: ED Medications Discontinued Medications Generic Name Dose Route Start Last Admin Trade Name Rm PRN Reason Stop Dose Admin Acetaminophen 1,000 mg 09/08/18 23:22 09/09/18 00:08 Ofirmev Injection - IVPB 09/08/18 23:23 1,000 mg ONCE ONE Administration Vancomycin HCl 1,000 mg 09/09/18 00:04 09/09/18 01:21 Vancomycin (Pre-Docked) IVPB 09/09/18 00:05 1,000 mg ONCE ONE Administration Protocol Medical Decision Making - Medical Decision Making 09/09/18 01:29 38yo F with PMH of ESRD (HD //), HTN presenting to ED with complaints of fever, malaise and R sided neck pain that started today. Pt was in her usual state of health yesterday. She has a R permacath and L AVF from which she gets dialysis, both access sites were used yesterday. The permacath and avf have been present for one month. She had a L permacath prior which she states was removed due to infection. Denies cough, chest pain, congestion, sob, headaches, changes in vision, abdominal pain, n/v/d, urinary symptoms, travel. Still able to produce urine Vitals; febrile, tachycardic PE: R permacath, clean site, no erythema. L AVF palpable thill, no erythema or discharge. lungs cta. no jvd or streaking no murmurs ddx includes but not limited to thrombophlebitis, septicemia, endocarditis, uti , atypical acs -sepsis w/u -us -iv tylenol, gentamycin, vancomycin. us negative for dvt, catheter in place. labs significant for white count 17. Cr, hgb at baseline. cannot rule out septicemia from catheter. will admit *DC/Admit/Observation/Transfer - Discharge Dispostion Decision to Admit order Date/Time: Decision to Admit Order Category Date Time Status Decision to Admit to Hospital Routine Admission 09/09/18 00:40 Active - Referrals Referrals: Renate Pichardo MD [Primary Care Provider] - - Patient Instructions - Post Discharge Activity
--- NOTE | 2018-09-09 01:31 | PDOC ---
Documentation entered by Katie Mendoza SCRIBE, acting as scribe for Mehul Irvin MD. Mehul Irvin MD: This documentation has been prepared by the melissaibe, Katie Mendoza SCRIBE, under my direction and personally reviewed by me in its entirety. I confirm that the documentation accurately reflects all work, treatment, procedures, and medical decision making performed by me. Attending Attestation - Resident Resident Name: Shahnaz Mcgowan - ED Attending Attestation I have performed the following: I have examined & evaluated the patient, The case was reviewed & discussed with the resident, I agree w/resident's findings & plan, Exceptions are as noted - HPI HPI: 09/09/18 00:13 The patient is a 38-year-old female, with a past medical history of HTN, ESRD ( IgA nephropathy, with RT permacath and LT AV fistula ), who presents to the ED with fevers and pain to the RT permacath site. The patient experienced similar symptoms when her LT permacath became infected and had to be removed. - Physicial Exam PE: 09/09/18 01:28 Patient is awake and alert, well-nourished, in no distress, febrile Normocephalic, atraumatic PERRLA, EOMI mmm No JVD Neck is supple, no palpable cord is appreciated bilaterally CTA + Right permacath is noted to the right anterior chest with minimal tenderness to palpation at the insertion site, no significant erythema or discharge is noted RRR, tachycardic Abdomen soft, nontender, nondistended - Medical Decision Making 09/09/18 01:29 Patient is a 38-year-old female with history of end-stage renal disease on hemodialysis who presents with fever, right-sided neck and right anterior chest discomfort for the past 12-24 hours. I suspect infection related to the permacath. Will obtain blood and urine cultures. We'll administer Vanco and Gent. Will rule out thrombophlebitis of the internal jugular vein with Doppler ultrasound. Will admit.
--- NOTE | 2018-09-09 03:46 | PN ---
Teaching Attending Note Name of Resident: Aman Malcolm ATTENDING PHYSICIAN STATEMENT I saw and evaluated the patient. I reviewed the resident's note and discussed the case with the resident. I agree with the resident's findings and plan as documented. SUBJECTIVE: Seen and examined; please refer to resident note for HPI/PMH/PSH/FH/SH/ROS. Briefly, she presents for malaise/chills and is found to be septic from suspected R-Subclavian HD cath; she had similar sx when she had infected HD catheter last month. OBJECTIVE: NAD, AAO, resting in bed Tachycardic and regular, s1/2 no mgr Lungs CTAB, w/ sym exp NT ND +BS CN2-12 wnl, no fnd Normal mood, appropriate affect RUE AVF with palpable thrill HD catheter R-SC without dressing, surrounding erythema. Appears tunnelled. EKG reviewed Prior blood cultures (S. Aureus, Stph latex coag po), ID consults reviewed 08/05 echo reviewed CBC with leuykocytosis with neutrophilia, chronic normocytic anemia BMP with normal lytes, CKD changes noted, chronically elevated Alk Phos ASSESSMENT AND PLAN: Patient presents with sepsis likely related to line infection # Sepsis likely 2/2 line infection # ESRD 2/2 IgA Nephropathy on HD # Hx HTN -Giving patient 500cc isotonic saline (not given fluids in ER) and placing on ancef (was on with HD last month) and vancomycin with ID consult (she sees Dr. Bryant). Blood cx drawn off line. She will need to have line removed. As tunnelled will consult her surgery team and we will order tip culture. She has a functioning AVF and she got HD from it on thursday. Consulting her yarn examiner for HD orders and will discuss with them and vascular regarding ongoing access. Will continue other home medications and monitor on the floor.. DVT px: Hep SQ
[2018-09-09] MEDS ORDERED: CEFAZOLIN 2 GM/D5W 2 GM/50 ML ML IVPB ONE (04:45)
--- NOTE | 2018-09-09 04:45 | HP ---
CHIEF COMPLAINT: Right-sided neck pain w/a chills PCP: Renate Colbert HISTORY OF PRESENT ILLNESS: 38F w/ pmh of HTN, ESRD 2/2 IgA nephropathy, HD via Right-sided tunneled dialysis catheter(T/R/S), LUE AVF(Shelli, 08/09/18) presents to [facility] with complaint of Right-sided neck pain w/a fever, chills, nausea+vomitting x1d. States that she had Right axillary swollen bump 3d prior, then woke up on with Right sided neck pain. Decided to go to [facility] after evening of fever, chills. Denies exudate, pain, or redness at site of Right TDC. H/o of infected TDC in July 2018, BCX and catheter tip grew staph. Patient states that she was adherent with getting IV abx with her HD, for ~3weeks duration. First use of LUE AVF was 09/07/18, no reported issues. Last HD was 09/07/18. Hardware Developer is Dr Donnie Richter. Does not know her dry weight. Still produces urine. Denies h/o of RUE swelling. States that her Right TDC was scheduled to be removed on . ER course was notable for: (1) Tmax 102.5F (2) duplex study of Right neck -- results pending (3) vanc + gentamicin Recent Travel: PAST MEDICAL HISTORY: HTN, ESRD 2/2 IgA nephropathy, HD via tunneled dialysis catheter(T/R/S), LUE AVF (Shelli, 08/09/18) PAST SURGICAL HISTORY: LUE AVF(Shelli, 08/09/18) Social History: Smoking: denies Alcohol: denies Drugs: denies Family History: none Allergies No Known Allergies Allergy (Verified 09/08/18 23:07) HOME MEDICATIONS: Home Medications Medication Instructions Recorded Labetalol HCl 300 mg PO BID 06/29/18 Amlodipine Besylate [Norvasc -] 5 mg PO DAILY tablet 07/02/18 Calcium (Oyster Shell) [Os-Shaheed 500 mg PO DAILY #60 tablet 07/02/18 500MG -] Cefazolin Sodium in 0.9 % NaCl 3 gm IV Q72H 14 Days #6 piggyback 08/09/18 [Cefazolin 3 G/100 ml-0.9% NaCl] REVIEW OF SYSTEMS CONSTITUTIONAL: fever, chills Absent: diaphoresis, generalized weakness, malaise, loss of appetite, weight change HEENT: Absent: rhinorrhea, nasal congestion, throat pain, throat swelling, difficulty swallowing, mouth swelling, ear pain, eye pain, visual changes CARDIOVASCULAR: Absent: chest pain, syncope, palpitations, irregular heart rate, lightheadedness , peripheral edema RESPIRATORY: Absent: cough, shortness of breath, dyspnea with exertion, wheezing, stridor, hemoptysis GASTROINTESTINAL: nausea, vomiting(food-like) Absent: abdominal pain, abdominal distension, nausea, diarrhea, constipation, melena, hematochezia GENITOURINARY: Absent: dysuria, frequency, urgency, hesitancy, hematuria, flank pain, genital pain MUSCULOSKELETAL: Right-sided neck pain Absent: myalgia, arthralgia, joint swelling, back pain SKIN: Absent: rash, itching, pallor HEMATOLOGIC/IMMUNOLOGIC: Absent: easy bleeding, easy bruising, lymphadenopathy, frequent infections ENDOCRINE: Absent: unexplained weight gain, unexplained weight loss, heat intolerance, cold intolerance NEUROLOGIC: Absent: headache, focal weakness or paresthesias, dizziness, unsteady gait, seizure, mental status changes, bladder or bowel incontinence PHYSICAL EXAMINATION Vital Signs - 24 hr 09/08/18 23:05 Temperature 102.5 F H Pulse Rate 107 H Respiratory 16 Rate Blood Pressure 158/67 O2 Sat by Pulse 100 Oximetry (%) GENERAL: Awake, alert, and fully oriented, in no acute distress. HEAD: Normal with no signs of trauma. EYES: Pupils equal, round and reactive to light, extraocular movements intact, sclera anicteric, conjunctiva clear. No lid lag. EARS, NOSE, THROAT: Ears normal, nares patent. Moist mucous membranes. NECK: Normal range of motion, supple without lymphadenopathy, JVD, or masses. No erythema, no streaking of neck. LUNGS: Breath sounds equal, clear to auscultation bilaterally. No wheezes, and no crackles. No accessory muscle use. HEART: Regular rhythm, normal S1 and S2 without murmur, rub or gallop. Right- sided Tunneled Dialysis Catheter w/o exudate, dry gauze covering skin, no surrounding erythema, no surrounding tenderness ABDOMEN: Soft, nontender, not distended, normoactive bowel sounds, no guarding, no rebound, no masses. MUSCULOSKELETAL: Normal range of motion at all joints. No bony deformities or tenderness. No CVA tenderness. UPPER EXTREMITIES: warm, well-perfused. No cyanosis. No peripheral edema. Left upper arm with palpable AVF, thrill palpable, bruit upon auscultation. LOWER EXTREMITIES: 2+ pulses, warm, well-perfused. No calf tenderness. No peripheral edema. NEUROLOGICAL: Normal speech. Moving all four extremities spontaneously PSYCHIATRIC: Cooperative. Good eye contact. Appropriate mood and affect. SKIN: Warm, dry, normal turgor, no rashes or lesions noted. Laboratory Results - last 24 hr 09/08/18 09/08/18 09/08/18 23:45 23:45 23:45 WBC 14.9 H RBC 3.33 L Hgb 9.5 L Hct 28.8 L MCV 86.6 MCH 28.5 MCHC 33.0 RDW 16.3 H Plt Count 290 MPV 7.9 Absolute Neuts (auto) 14.2 H Neutrophils % 95.2 H D Lymphocytes % 2.5 L D Monocytes % 1.3 L Eosinophils % 0.8 Basophils % 0.2 Nucleated RBC % 0 PT with INR 11.10 INR 0.94 PTT (Actin FS) 33.6 VBG pH 7.41 POC VBG pCO2 37.1 L POC VBG pO2 58.8 H VBG HCO3 23.0 VBG O2 Sat (Sera) 88.4 H VBG Base Excess -0.8 Sodium Potassium Chloride Carbon Dioxide Anion Gap BUN Creatinine Est GFR (CKD-EPI)AfAm Est GFR (CKD-EPI)NonAf Random Glucose Lactic Acid Calcium Total Bilirubin AST ALT Alkaline Phosphatase Troponin I Total Protein Albumin Urine Color Urine Appearance Urine pH Ur Specific [place] Urine Protein Urine Glucose (UA) Urine Ketones Urine Blood Urine Nitrite Urine Bilirubin Urine Urobilinogen Ur Leukocyte Esterase Urine WBC (Auto) Urine RBC (Auto) Urine Casts (Auto) U Epithel Cells (Auto) Urine Bacteria (Auto) 09/08/18 09/08/18 09/08/18 23:45 23:45 23:45 WBC RBC Hgb Hct MCV MCH MCHC RDW Plt Count MPV Absolute Neuts (auto) Neutrophils % Lymphocytes % Monocytes % Eosinophils % Basophils % Nucleated RBC % PT with INR INR PTT (Actin FS) VBG pH POC VBG pCO2 POC VBG pO2 VBG HCO3 VBG O2 Sat (Sera) VBG Base Excess Sodium 135 L Potassium 4.5 Chloride 100 Carbon Dioxide 24 Anion Gap 11 BUN 39.4 H Creatinine 7.6 H* Est GFR (CKD-EPI)AfAm 7.03 Est GFR (CKD-EPI)NonAf 6.06 Random Glucose 97 Lactic Acid 1.2 Calcium 8.3 L Total Bilirubin 0.4 AST 11 L ALT 11 L Alkaline Phosphatase 139 H Troponin I < 0.02 Total Protein 7.2 Albumin 3.4 Urine Color Urine Appearance Urine pH Ur Specific [place] Urine Protein Urine Glucose (UA) Urine Ketones Urine Blood Urine Nitrite Urine Bilirubin Urine Urobilinogen Ur Leukocyte Esterase Urine WBC (Auto) Urine RBC (Auto) Urine Casts (Auto) U Epithel Cells (Auto) Urine Bacteria (Auto) 09/09/18 00:18 WBC RBC Hgb Hct MCV MCH MCHC RDW Plt Count MPV Absolute Neuts (auto) Neutrophils % Lymphocytes % Monocytes % Eosinophils % Basophils % Nucleated RBC % PT with INR INR PTT (Actin FS) VBG pH POC VBG pCO2 POC VBG pO2 VBG HCO3 VBG O2 Sat (Sera) VBG Base Excess Sodium Potassium Chloride Carbon Dioxide Anion Gap BUN Creatinine Est GFR (CKD-EPI)AfAm Est GFR (CKD-EPI)NonAf Random Glucose Lactic Acid Calcium Total Bilirubin AST ALT Alkaline Phosphatase Troponin I Total Protein Albumin Urine Color Yellow Urine Appearance Clear Urine pH 8.5 H D Ur Specific [place] 1.009 L Urine Protein 2+ H Urine Glucose (UA) Negative Urine Ketones Negative Urine Blood Trace Urine Nitrite Negative Urine Bilirubin Negative Urine Urobilinogen 0.2 Ur Leukocyte Esterase Negative Urine WBC (Auto) 2 Urine RBC (Auto) 1 Urine Casts (Auto) 0 U Epithel Cells (Auto) 1.9 Urine Bacteria (Auto) 166.4 ASSESSMENT/PLAN: 38F w/ pmh of HTN, ESRD 2/2 IgA nephropathy, HD via Right-sided tunneled dialysis catheter(T/R/S), LUE AVF(Shelli, 08/09/18) presents to [facility]ED with complaint of Right-sided neck pain w/a fever, chills possible CLABSI. # CLABSI > RUE duplex study(09/09/18) to r/o thrombophlebitis -- pending final read - consult ID(Dr Mendoza) - consult Surgery(Dr Marques) to remove Right tunneled dialysis catheter - fu bcx - fu ESR + CRP - Right tunneled dialysis catheter tip to be sent for cx - cefazolin + vanco - echo to r/o endocarditis # ESRD(HD on T/R/S) - consult Nephro(Dr Dillon) for HD on 09/09/18 #HTN - cw labetalol, amlodipine Aman Gandara, DO PGY-1 Medicine, PM-Float [id number] 09/09/18 Visit type - Emergency Visit Emergency Visit: Yes ED Registration Date: 09/09/18 Care time: The patient presented to the Emergency Department on the above date and was hospitalized for further evaluation of their emergent condition. - New Patient This patient is new to me today: Yes Date on this admission: 09/09/18 - Critical Care Critical Care patient: No ATTENDING PHYSICIAN STATEMENT I saw and evaluated the patient. I reviewed the resident's note and discussed the case with the resident. I agree with the resident's findings and plan as documented. SUBJECTIVE: OBJECTIVE: ASSESSMENT AND PLAN:
[2018-09-09] MEDS ORDERED: SODIUM CHLORIDE 500 ML IV STA (04:56)
[2018-09-09] MEDS ORDERED: HEPARIN NA (PORCINE) 5,000 UNITS/ML 1ML VIAL ONE (05:39)
[2018-09-09] MEDS ORDERED: CEFAZOLIN 1 GM/D5W 2 GM/100 ML BAG ONE (05:39)
[2018-09-09] MEDS: HEPARIN NA (PORCINE) 5,000 UNITS/ML 1ML VIAL SQ SCH ×3 (05:55→22:31)
[2018-09-09 06:36] LABS: PLATELET ESTIMATE ADEQUATE
--- NOTE | 2018-09-09 08:18 | PROC ---
Procedure Note Procedure: REMOVAL OF TUNNELED HD CATHETER She has LUE AVF which HD RNs used for the first time 09/07/18 without incident. Because of her presentation of fever/chills, concerned for infected cath as she' s had a similar problem in the past. INR INR 0.94 (0.83-1.09) 09/08/18 23:45 Right chest wall PC removed with distal tip intact. Direct pressure held for 5 mins over right IJ as well as exterior insertion site --> + hemostasis Clean dry dressing applied. Patient tolerated procedure well. HD via LUE AVF per pt's schedule. No further vascular intervention planned. Cont medical management
[2018-09-09] MEDS ORDERED: ACETAMINOPHEN 325 MG TABLET (FP) PO ONE (08:30)
[2018-09-09] MEDS ORDERED: ACETAMINOPHEN 325 MG TABLET (FP) ONE (08:30)
[2018-09-09 08:32] LABS: BASO % 0.2 % (0-2.0); EOS % 0.1 % (0-4.5); HEMATOCRIT 28.8 % (32.4-45.2); HEMOGLOBIN 9.1 GM/dL (10.7-15.3); LYMPH % 0.9 % (8-40); MCHC 31.6 g/dl (32.0-36.0); MEAN CELL VOLUME 88.8 fl (80-96); MEAN PLT VOLUME 7.9 fl (7.5-11.1); MONO % 1.7 % (3.8-10.2); NEUT % 97.1 % (42.8-82.8); PLATELET COUNT 246 K/MM3 (134-434); RBC 3.25 M/mm3 (3.60-5.2)
[2018-09-09 08:58] LABS: ALBUMIN 3.1 g/dl (3.4-5.0); BILIRUBIN,TOTAL 0.4 mg/dL (0.2-1); BLOOD UREA NITROGEN 40.6 mg/dL (7-18); MAGNESIUM 1.8 mg/dL (1.8-2.4); POTASSIUM 4.6 mmol/L (3.5-5.1); TOT PROT 6.5 g/dl (6.4-8.2)
[2018-09-09 09:00] LABS: CREATININE 8.3 mg/dL (0.55-1.3)
[2018-09-09 10:38] LABS: ANISOCYTOSIS 0; MACROCYTOSIS 0; PLATELET ESTIMATE NORMAL
--- NOTE | 2018-09-09 11:21 | PN ---
Progress Note, Physician Chief Complaint: Ms Rosas says she is feeling better but still feels weak. Denies cp, sob, n/v. - Current Medication List Current Medications: Active Medications Calcium Carbonate (Os-Shaheed 500mg -) 500 mg PO DAILY [facility] Heparin Sodium (Porcine) (Heparin -) 5,000 unit SQ TID [facility] Last Admin: 09/09/18 05:55 Dose: 5,000 unit - Objective Vital Signs: Vital Signs Temperature 38.7 C H 09/09/18 07:35 Pulse Rate 105 H 09/09/18 07:07 Respiratory Rate 18 09/09/18 07:07 Blood Pressure 119/74 09/09/18 07:07 O2 Sat by Pulse Oximetry (%) 97 09/09/18 07:07 Constitutional: Yes: No Distress, Calm, Obese Cardiovascular: Yes: Regular Rate and Rhythm. No: Gallop, Murmur, Rub Respiratory: Yes: Regular, CTA Bilaterally. No: Rales, Rhonchi, Wheezes Gastrointestinal: Yes: Normal Bowel Sounds, Soft. No: Distention, Tenderness Extremities: Yes: WNL Edema: No Labs: CBC, BMP 09/09/18 08:08 09/09/18 08:08 INR, PTT INR 0.94 (0.83-1.09) 09/08/18 23:45 Problem List - Problems (1) Bacteremia associated with intravascular line Assessment/Plan: -s/p line removal -leukocytosis up to 30K -no lactic acidosis -slightly hypotensive but not needing support -received cefazolin, gentamicin, and vancomycin in the ED -cultures sent and pending Code(s): T82.7XXA - INFECT/INFLM REACT D/T OTH CARDI/VASC DEV/IMPLNT/GRFT, INIT ; R78.81 - BACTEREMIA Qualifiers: Encounter type: initial encounter Qualified Code(s): T82.7XXA - Infection and inflammatory reaction due to other cardiac and vascular devices, implants and grafts, initial encounter; R78.81 - Bacteremia (2) ESRD (end stage renal disease) Assessment/Plan: -nephrology consulted -plan to use fistula for HD Code(s): N18.6 - END STAGE RENAL DISEASE (3) Sepsis Assessment/Plan: -as evidenced by leukocytosis with left shift, continued fevers, decreased blood pressure, and tachycardia -as above Code(s): A41.9 - SEPSIS, UNSPECIFIED ORGANISM Qualifiers: Sepsis type: methicillin susceptible Staphylococcus aureus Qualified Code(s ): A41.01 - Sepsis due to Methicillin susceptible Staphylococcus aureus (4) HTN (hypertension) Assessment/Plan: -currently low normal -holding antihypertensives at this time -normally on amlodipine and labetalol Code(s): I10 - ESSENTIAL (PRIMARY) HYPERTENSION
--- NOTE | 2018-09-09 12:15 | CONSULT ---
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 Pt was admitted in July for catheter related bacteremia during which time she grew MSSA. Tmax was 102 in the ED. Tunneled catheter was removed by vascular surgery team. Pt reports fever and pain at catheter site for 1 day. Denies any chest pain, sob, N/V/D. Last dialysis was Thursday w/o complication. Makes urine still. PMhx: as above Allergies: NKDA Family Hx: NC Social Hx: No T/A/D ROS: as per HPI Home Medications Medication Instructions Recorded RX: Labetalol HCl 300 mg PO BID 06/29/18 RX: Amlodipine Besylate [Norvasc -] 5 mg PO DAILY tablet 07/02/18 RX: Calcium (Oyster Shell) [Os-Shaheed 500 mg PO DAILY #60 tablet 07/02/18 500MG -] Cefazolin Sodium in 0.9 % NaCl 3 gm IV Q72H 14 Days #6 piggyback 08/09/18 [Cefazolin 3 G/100 ml-0.9% NaCl] Vital Signs Temperature 101.6 F H 09/09/18 07:35 Pulse Rate 105 H 09/09/18 07:07 Respiratory Rate 18 09/09/18 07:07 Blood Pressure 119/74 09/09/18 07:07 O2 Sat by Pulse Oximetry (%) 97 09/09/18 07:07 Intake & Output 09/06/18 09/07/18 09/08/18 09/09/18 23:59 23:59 23:59 23:59 Weight 79.832 kg NAD awake and alert neck supple, no JVD RRR, no M/R CTA, no rales or wheeze soft NT/ND no LE edema CBC, BMP 09/09/18 08:08 09/09/18 08:08 Chest X-ray- no infiltrate or effusion Doppler of RUE - no DVT. 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 #ESRD on HD #Fever with suspected catheter related bacteremia #Chronic Anemia #Hypertension #Hyponatremia Will defer dialysis until tomorrow to allow antibiotics to work no emergent indication for [employer] today will use AVF for HD as per vascular Abx as per ID f/u official culture reports s/p Vancomycin and Gent in the ED check Vanco level in AM Continue amlodipine and labetalol Thank you Von Dillon DO
--- NOTE | 2018-09-09 13:15 | CON.ID ---
Consult Consult Specialty:: infectious diseases Referred by:: Dr Connolly Reason for Consultation:: sepsis - History of Present Illness Chief Complaint: fever,neck pain,pain in the axilla rt History of Present Illness: 38yo F with PMH of ESRD (HD //), HTN presenting to ED with complaints of fever, malaise and R sided neck pain that started today. Pt was in her usual state of health yesterday. She has a R permacath and L AVF from which she gets dialysis, both access sites were used yesterday. The permacath and avf have been present for one month. She had a L permacath prior which she states was removed due to infection. Denies cough, chest pain, congestion, sob, headaches, changes in vision, abdominal pain, n/v/d, urinary symptoms, travel. Still able to produce urine patient started having fever and above.Her rt sided cath was removed patient was worked up and found to have positive blood cx patient received one dose of vanco currently her neck pain has resolved - History Source History Provided By: Patient Limitations to Obtaining History: No Limitations - Past Medical History Cardio/Vascular: Yes: HTN Renal/: Yes: Renal Failure, Hemodialysis - Past Surgical History Past Surgical History: Yes: AV Fistula/Graft (left) - Alcohol/Substance Use Hx Alcohol Use: No - Smoking History Smoking history: Unknown if ever smoked Have you smoked in the past 12 months: No Aproximately how many cigarettes per day: 0 Home Medications - Allergies Allergies/Adverse Reactions: Allergies Allergy/AdvReac Type Severity Reaction Status Date / Time No Known Allergies Allergy Verified 09/08/18 23:07 - Home Medications Home Medications: Ambulatory Orders Labetalol HCl 300 mg PO BID 06/29/18 Amlodipine Besylate [Norvasc -] 5 mg PO DAILY tablet 07/02/18 Calcium (Oyster Shell) [Os-Shaheed 500MG -] 500 mg PO DAILY #60 tablet 07/02/18 Cefazolin Sodium in 0.9 % NaCl [Cefazolin 3 G/100 ml-0.9% NaCl] 3 gm IV Q72H 14 Days #6 piggyback 08/09/18 Review of Systems - Review of Systems Constitutional: reports: Fever Eyes: reports: No Symptoms HENT: reports: No Symptoms Neck: reports: Other (neck pain resolved) Cardiovascular: reports: No Symptoms Respiratory: reports: No Symptoms Gastrointestinal: reports: No Symptoms Musculoskeletal: reports: No Symptoms Integumentary: reports: No Symptoms Neurological: reports: No Symptoms Endocrine: reports: No Symptoms Hematology/Lymphatic: reports: No Symptoms Psychiatric: reports: No Symptoms Physical Exam Vital Signs: Vital Signs Temperature 98.4 F 09/09/18 12:25 Pulse Rate 93 H 09/09/18 12:25 Respiratory Rate 15 09/09/18 12:25 Blood Pressure 102/53 L 09/09/18 12:25 O2 Sat by Pulse Oximetry (%) 96 09/09/18 12:25 Constitutional: Yes: No Distress, Calm HENT: Yes: Other (neck site looks good) Cardiovascular: Yes: Regular Rate and Rhythm Respiratory: Yes: Regular, CTA Bilaterally Gastrointestinal: Yes: Normal Bowel Sounds, Soft Musculoskeletal: Yes: WNL Extremities: Yes: Other (rt axilla lymph node palpable) Wound/Incision: Yes: Clean/Dry, Dressing Dry and Intact Neurological: Yes: Alert, Oriented Psychiatric: Yes: Alert, Oriented Labs: CBC, BMP 09/09/18 08:08 09/09/18 08:08 Imaging - Results Chest X-ray: Report Reviewed, Image Reviewed Ultrasound: Report Reviewed, Image Reviewed Assessment/Plan Problem List - Problems (1) Bacteremia associated with intravascular line Code(s): T82.7XXA - INFECT/INFLM REACT D/T OTH CARDI/VASC DEV/IMPLNT/GRFT, INIT ; R78.81 - BACTEREMIA Qualifiers: Encounter type: initial encounter Qualified Code(s): T82.7XXA - Infection and inflammatory reaction due to other cardiac and vascular devices, implants and grafts, initial encounter; R78.81 - Bacteremia (2) ESRD (end stage renal disease) Code(s): N18.6 - END STAGE RENAL DISEASE (3) Sepsis Code(s): A41.9 - SEPSIS, UNSPECIFIED ORGANISM Qualifiers: Sepsis type: methicillin susceptible Staphylococcus aureus Qualified Code(s ): A41.01 - Sepsis due to Methicillin susceptible Staphylococcus aureus (4) HTN (hypertension) Code(s): I10 - ESSENTIAL (PRIMARY) HYPERTENSION patient has received one dose of vanco plan will check vanco level and then decide further dosing await for identification of the bacteria and sensitivities close watch monitor fevers rest as per the team
[2018-09-09 14:03] VITALS: BMI 33.8
--- NOTE | 2018-09-09 14:14 | ECHO ---
Name: ADINA GRIFFINAC Bacon L Exam:Adult Echocardiogram Study Date: 09/09/2018 08:32 AM Age: 38 yrs Reason For Study: R/O Endocarditis Height: 60 in Weight: 176 lb BSA: 1.8 m2 MMode/2D Measurements & Calculations IVSd: 1.3 cm Ao root diam: 2.7 cm LVIDd: 3.8 cm LA dimension: 2.8 cm LVIDs: 2.1 cm LVPWd: 1.0 cm EDV(Teich): 60.7 ml LVOT diam: 1.9 cm ESV(Teich): 14.3 ml LAV (MOD-bp): 48.6 ml Doppler Measurements & Calculations MV E max scott: 129.0 cm/sec Ao V2 max: 180.5 cm/sec MV dec time: 0.13 sec Ao max P.0 mmHg JAISON(V,D): 2.7 cm2 LV V1 max P.9 mmHg TR max scott: 269.2 cm/sec LV V1 max: 165.3 cm/sec TR max P.0 mmHg PA V2 max: 150.7 cm/sec Med Peak E' Scott: 10.8 cm/sec PA max P.1 mmHg Med E/e': 12.0 Lat Peak E' Scott: 13.7 cm/sec Lat E/e': 9.4 Procedure A complete two-dimensional transthoracic echocardiogram was performed (2D, M-mode, Doppler and color flow Doppler). Left Ventricle The left ventricular size, thickness and function are normal. The left ventricular ejection fraction is normal. Ejection Fraction = 60-65%. The left ventricular wall motion is normal. Right Ventricle The right ventricle is normal in size and function. Atria Normal left and right atrial size and function. Mitral Valve There is no mitral regurgitation noted. Tricuspid Valve There is mild tricuspid regurgitation. Right ventricular systolic pressure is normal. Aortic Valve No hemodynamically significant valvular aortic stenosis. No aortic regurgitation is present. Pulmonic Valve There is no pulmonic valvular regurgitation. Great Vessels The aortic root is normal size. Pericardium/Pleura There is no pericardial effusion. Interpretation Summary The left ventricular size, thickness and function are normal The right ventricle is normal in size and function. There is mild tricuspid regurgitation. MD Dillon Lozano 09/09/2018 02:13 PM
[2018-09-09] MEDS ORDERED: PIPERACILLIN/TAZOB 2.25 GM 2.25 GM in DEXTROSE 5%-WATER - 50 ML IVPB SCH (15:00)
--- NOTE | 2018-09-09 17:11 | EKG ---
Test Reason : Blood Pressure : / mmHG Vent. Rate : 106 BPM Atrial Rate : 106 BPM P-R Int : 158 ms QRS Dur : 090 ms QT Int : 338 ms P-R-T Axes : 045 062 063 degrees QTc Int : 448 ms SINUS TACHYCARDIA POSSIBLE LEFT ATRIAL ENLARGEMENT BORDERLINE ECG NO PREVIOUS ECGS AVAILABLE Confirmed by LIZETH SCHULER MD ([id number]) on 09/09/2018 5:11:40 PM Referred By: Confirmed By:LIZETH SCHULER MD
[2018-09-10] MEDS: HEPARIN NA (PORCINE) 5,000 UNITS/ML 1ML VIAL SQ SCH ×3 (06:33→21:41)
[2018-09-10 07:46] LABS: BASO % 0.3 % (0-2.0); EOS % 0.9 % (0-4.5); HEMATOCRIT 26.8 % (32.4-45.2); HEMOGLOBIN 8.6 GM/dL (10.7-15.3); LYMPH % 5.9 % (8-40); MCH 28.4 pg (25.7-33.7); MCHC 32.2 g/dl (32.0-36.0); MEAN CELL VOLUME 88.4 fl (80-96); MEAN PLT VOLUME 8.3 fl (7.5-11.1); MONO % 4.5 % (3.8-10.2); NEUT % 88.4 % (42.8-82.8); PLATELET COUNT 228 K/MM3 (134-434); RBC 3.03 M/mm3 (3.60-5.2); RDW 16.3 % (11.6-15.6); WHITE BLOOD COUNT 19.4 K/mm3 (4.0-10.0)
[2018-09-10 08:03] LABS: BLOOD UREA NITROGEN 51.3 mg/dL (7-18); CALCIUM 8.4 mg/dL (8.5-10.1); MAGNESIUM 2.3 mg/dL (1.8-2.4); PHOSPHOROUS 5.7 mg/dL (2.5-4.9); POTASSIUM 4.8 mmol/L (3.5-5.1)
[2018-09-10] MEDS: CALCIUM (OYSTER SHELL) 500 MG TABLET (FP) PO SCH (09:29)
--- NOTE | 2018-09-10 10:55 | PN ---
Progress Note, Physician History of Present Illness: relatively afebrile does not feel good - Current Medication List Current Medications: Active Medications Calcium Carbonate (Os-Shaheed 500mg -) 500 mg PO DAILY [facility] Last Admin: 09/10/18 09:29 Dose: 500 mg Epoetin Karl (Epogen -) 10,000 unit IVPUSH ONCE ONE Stop: 09/10/18 07:01 Heparin Sodium (Porcine) (Heparin -) 5,000 unit SQ TID [facility] Last Admin: 09/10/18 06:33 Dose: 5,000 unit Sodium Chloride (Normal Saline -) 250 mls @ 3,000 mls/hr IV PRN PRN PRN Reason: Hypotension during Dialysis Stop: 09/10/18 13:21 - Objective Vital Signs: Vital Signs Temperature 99.3 F 09/10/18 09:26 Pulse Rate 95 H 09/10/18 09:26 Respiratory Rate 18 09/10/18 09:26 Blood Pressure 137/82 09/10/18 09:26 O2 Sat by Pulse Oximetry (%) 99 09/09/18 21:00 Constitutional: Yes: Calm, Mild Distress Cardiovascular: Yes: Regular Rate and Rhythm Respiratory: Yes: Regular, CTA Bilaterally Gastrointestinal: Yes: Normal Bowel Sounds, Soft Musculoskeletal: Yes: WNL Extremities: Yes: WNL Wound/Incision: Yes: Dressing Dry and Intact Neurological: Yes: Alert, Oriented Psychiatric: Yes: Alert, Oriented Labs: CBC, BMP 09/10/18 06:50 09/10/18 06:50 INR, PTT INR 0.94 (0.83-1.09) 09/08/18 23:45 Assessment/Plan Problem List - Problems (1) Bacteremia associated with intravascular line Code(s): T82.7XXA - INFECT/INFLM REACT D/T OTH CARDI/VASC DEV/IMPLNT/GRFT, INIT ; R78.81 - BACTEREMIA Qualifiers: Encounter type: initial encounter Qualified Code(s): T82.7XXA - Infection and inflammatory reaction due to other cardiac and vascular devices, implants and grafts, initial encounter; R78.81 - Bacteremia (2) ESRD (end stage renal disease) Code(s): N18.6 - END STAGE RENAL DISEASE (3) Sepsis Code(s): A41.9 - SEPSIS, UNSPECIFIED ORGANISM Qualifiers: Sepsis type: methicillin susceptible Staphylococcus aureus Qualified Code(s ): A41.01 - Sepsis due to Methicillin susceptible Staphylococcus aureus (4) HTN (hypertension) Code(s): I10 - ESSENTIAL (PRIMARY) HYPERTENSION patient has received one dose of vanco plan vanco level noted will hold vanco for now stat blood cx ordered wound care rest as per the team
[2018-09-10] MEDS ORDERED: SODIUM CHLORIDE 250 ML IV PRN (12:56)
[2018-09-10] MEDS ORDERED: EPOETIN ALFA 10,000 UNIT/1 ML VIAL IVPUSH ONE (13:30)
[2018-09-10 13:54] LABS: HEMATOCRIT 28.5 % (32.4-45.2); HEMOGLOBIN 8.9 GM/dL (10.7-15.3); MCH 27.9 pg (25.7-33.7); MCHC 31.4 g/dl (32.0-36.0); MEAN CELL VOLUME 88.9 fl (80-96); MEAN PLT VOLUME 8.7 fl (7.5-11.1); PLATELET COUNT 243 K/MM3 (134-434); RDW 16.2 % (11.6-15.6); WHITE BLOOD COUNT 18.2 K/mm3 (4.0-10.0)
--- NOTE | 2018-09-10 14:29 | PN ---
Progress Note (short form) - Note Progress Note: Renal follow up for ESRD on HD Pt seen and examined during dialysis using AVF for HD, able to achieve good blood flow no sob, cp, fever or chills Vital Signs Temperature 99.1 F 09/10/18 12:50 Pulse Rate 82 09/10/18 15:15 Respiratory Rate 18 09/10/18 15:15 Blood Pressure 136/70 09/10/18 15:15 O2 Sat by Pulse Oximetry (%) 99 09/09/18 21:00 Intake & Output 09/07/18 09/08/18 09/09/18 09/10/18 23:59 23:59 23:59 23:59 Weight 79.832 kg 78.698 kg NAD awake and alert neck supple, no JVD RRR, no M/R CTA, no rales or wheeze soft NT/ND no LE edema CBC, BMP 09/10/18 13:32 09/10/18 06:50 Current Medications Calcium Carbonate (Os-Shaheed 500mg -) 500 mg PO DAILY [facility] Last Admin: 09/10/18 09:29 Dose: 500 mg Heparin Sodium (Porcine) (Heparin -) 5,000 unit SQ TID [facility] Last Admin: 09/10/18 14:00 Dose: Not Given 38 year old woman with hx of 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 #ESRD on HD #Fever with suspected catheter related bacteremia #Chronic Anemia #Hypertension #Hyponatremia tolerating dialysis well via AVF will have 2hr tx today and 3 hr tx tomorrow Abx as per ID f/u official culture reports Vanco level is 20, hold dose today check Vanco level in AM Continue amlodipine and labetalol Thank you Von Dillon DO
--- NOTE | 2018-09-10 16:16 | PN ---
Progress Note (short form) - Note Progress Note: Pt is s/p Permcath removal for infection. She has no complaints today. No burning with urination, denies cough. Two episodes of diarrhea last pm, nothing today. Vital Signs Period Temp Pulse Resp BP Sys/James Pulse Ox Last 24 Hr 98.3 F-99.3 F 71-95 17-20 110-145/50-82 99 GEN: A&0x3, NAD Right chest: dry dressing change(not soiled). No erythema or drainage from the permcath removal site. LUE: good thrill and dry dressing, hand warm with +2 radial pulse CBC, BMP 09/10/18 13:32 09/10/18 06:50 Microbiology 09/09/18 00:18 Urine - Urine Clean Catch Urine Culture - Final NO GROWTH OBTAINED 09/08/18 23:45 Blood - Peripheral Venous Blood Culture - Preliminary Staphylococcus Latex Coag Pos 09/08/18 23:45 Blood - Peripheral Venous Blood Culture - Preliminary Staphylococcus Latex Coag Pos A/p: 38 yo female s/p permacath removal for infection Blood cultures-staph awaiting final culture report Pt being treated with IV vanco Pt tolerated 2 hours of HD via her fistula today D/w Dr. Marques, continue to monitor fever curve, wbc and awaiting final culture results. New cultures sent today
--- NOTE | 2018-09-10 18:41 | PN ---
Progress Note, Physician Chief Complaint: Ms Rosas is without complaint today. Denies cp, sob, n/v. - Current Medication List Current Medications: Active Medications Calcium Carbonate (Os-Shaheed 500mg -) 500 mg PO DAILY [facility] Last Admin: 09/10/18 09:29 Dose: 500 mg Heparin Sodium (Porcine) (Heparin -) 5,000 unit SQ TID [facility] Last Admin: 09/10/18 14:00 Dose: Not Given Sodium Chloride (Normal Saline -) 250 mls @ 3,000 mls/hr IV PRN PRN PRN Reason: Hypotension during Dialysis Stop: 09/11/18 18:03 - Objective Vital Signs: Vital Signs Temperature 37.3 C 09/10/18 12:50 Pulse Rate 82 09/10/18 15:15 Respiratory Rate 18 09/10/18 15:15 Blood Pressure 136/70 09/10/18 15:15 O2 Sat by Pulse Oximetry (%) 98 09/10/18 10:00 Constitutional: Yes: No Distress, Calm, Obese Cardiovascular: Yes: Regular Rate and Rhythm. No: Gallop, Murmur, Rub Respiratory: Yes: Regular, CTA Bilaterally. No: Rales, Rhonchi, Wheezes Gastrointestinal: Yes: Normal Bowel Sounds, Soft. No: Distention, Tenderness Extremities: Yes: WNL Edema: No Labs: CBC, BMP 09/10/18 13:32 09/10/18 06:50 INR, PTT INR 0.94 (0.83-1.09) 09/08/18 23:45 Problem List - Problems (1) Bacteremia associated with intravascular line Code(s): T82.7XXA - INFECT/INFLM REACT D/T OTH CARDI/VASC DEV/IMPLNT/GRFT, INIT ; R78.81 - BACTEREMIA Qualifiers: Encounter type: initial encounter Qualified Code(s): T82.7XXA - Infection and inflammatory reaction due to other cardiac and vascular devices, implants and grafts, initial encounter; R78.81 - Bacteremia (2) ESRD (end stage renal disease) Code(s): N18.6 - END STAGE RENAL DISEASE (3) Sepsis Code(s): A41.9 - SEPSIS, UNSPECIFIED ORGANISM Qualifiers: Sepsis type: methicillin susceptible Staphylococcus aureus Qualified Code(s ): A41.01 - Sepsis due to Methicillin susceptible Staphylococcus aureus (4) HTN (hypertension) Code(s): I10 - ESSENTIAL (PRIMARY) HYPERTENSION Assessment/Plan (1) Bacteremia associated with intravascular line Assessment/Plan: -s/p line removal -leukocytosis much improved -ID note reviewed, vancomycin level noted so currently holding -repeat blood cultures today Code(s): T82.7XXA - INFECT/INFLM REACT D/T OTH CARDI/VASC DEV/IMPLNT/GRFT, INIT ; R78.81 - BACTEREMIA Qualifiers: Encounter type: initial encounter Qualified Code(s): T82.7XXA - Infection and inflammatory reaction due to other cardiac and vascular devices, implants and grafts, initial encounter; R78.81 - Bacteremia (2) ESRD (end stage renal disease) Assessment/Plan: -nephrology consulted -fistula used today without difficulty Code(s): N18.6 - END STAGE RENAL DISEASE (3) Sepsis Assessment/Plan: -improving Code(s): A41.9 - SEPSIS, UNSPECIFIED ORGANISM Qualifiers: Sepsis type: methicillin susceptible Staphylococcus aureus Qualified Code(s ): A41.01 - Sepsis due to Methicillin susceptible Staphylococcus aureus (4) HTN (hypertension) Assessment/Plan: -normal today -will continue to hold blood pressure medications but suspect can restart soon -normally on amlodipine and labetalol Code(s): I10 - ESSENTIAL (PRIMARY) HYPERTENSION
[2018-09-11] MEDS: HEPARIN NA (PORCINE) 5,000 UNITS/ML 1ML VIAL SQ SCH ×3 (06:54→21:48)
[2018-09-11 08:07] LABS: BLOOD UREA NITROGEN 35.9 mg/dL (7-18); CALCIUM 8.8 mg/dL (8.5-10.1); CREATININE 6.7 mg/dL (0.55-1.3); MAGNESIUM 2.1 mg/dL (1.8-2.4); POTASSIUM 4.1 mmol/L (3.5-5.1)
[2018-09-11 09:59] LABS: BASO % 0.7 % (0-2.0); EOS % 1.1 % (0-4.5); HEMATOCRIT 27.5 % (32.4-45.2); HEMOGLOBIN 8.9 GM/dL (10.7-15.3); LYMPH % 10.3 % (8-40); MCH 28.3 pg (25.7-33.7); MCHC 32.4 g/dl (32.0-36.0); MEAN CELL VOLUME 87.5 fl (80-96); MEAN PLT VOLUME 8.8 fl (7.5-11.1); MONO % 7.1 % (3.8-10.2); NEUT % 80.8 % (42.8-82.8); RBC 3.14 M/mm3 (3.60-5.2); WHITE BLOOD COUNT 13.2 K/mm3 (4.0-10.0)
[2018-09-11 10:18] LABS: PLATELET COUNT 266 K/MM3 (134-434)
--- NOTE | 2018-09-11 11:55 | PN ---
Progress Note, Physician History of Present Illness: low grade fevers - Current Medication List Current Medications: Active Medications Calcium Carbonate (Os-Shaheed 500mg -) 500 mg PO DAILY [facility] Last Admin: 09/10/18 09:29 Dose: 500 mg Heparin Sodium (Porcine) (Heparin -) 5,000 unit SQ TID [facility] Last Admin: 09/11/18 06:54 Dose: 5,000 unit Sodium Chloride (Normal Saline -) 250 mls @ 3,000 mls/hr IV PRN PRN PRN Reason: Hypotension during Dialysis Stop: 09/11/18 18:03 - Objective Vital Signs: Vital Signs Temperature 99.9 F H 09/11/18 06:00 Pulse Rate 80 09/11/18 11:25 Respiratory Rate 18 09/11/18 11:25 Blood Pressure 117/50 L 09/11/18 11:25 O2 Sat by Pulse Oximetry (%) 98 09/10/18 21:00 Constitutional: Yes: No Distress, Calm Cardiovascular: Yes: Regular Rate and Rhythm Respiratory: Yes: Regular, CTA Bilaterally Gastrointestinal: Yes: Normal Bowel Sounds, Soft Musculoskeletal: Yes: WNL Extremities: Yes: Other Neurological: Yes: Alert, Oriented Psychiatric: Yes: Alert, Oriented Labs: CBC, BMP 09/11/18 06:23 09/11/18 06:23 INR, PTT INR 0.94 (0.83-1.09) 09/08/18 23:45 Assessment/Plan Problem List - Problems (1) Bacteremia associated with intravascular line Code(s): T82.7XXA - INFECT/INFLM REACT D/T OTH CARDI/VASC DEV/IMPLNT/GRFT, INIT ; R78.81 - BACTEREMIA Qualifiers: Encounter type: initial encounter Qualified Code(s): T82.7XXA - Infection and inflammatory reaction due to other cardiac and vascular devices, implants and grafts, initial encounter; R78.81 - Bacteremia (2) ESRD (end stage renal disease) Code(s): N18.6 - END STAGE RENAL DISEASE (3) Sepsis Code(s): A41.9 - SEPSIS, UNSPECIFIED ORGANISM Qualifiers: Sepsis type: methicillin susceptible Staphylococcus aureus Qualified Code(s ): A41.01 - Sepsis due to Methicillin susceptible Staphylococcus aureus (4) HTN (hypertension) Code(s): I10 - ESSENTIAL (PRIMARY) HYPERTENSION patient has received one dose of vanco plan vanco level noted will give 500 mg of vanco will check levels tomorrow rest as per the zhao await for finalization of cx
--- NOTE | 2018-09-11 12:12 | PN ---
Progress Note, Physician Chief Complaint: Ms Rosas complains of feeling tired but otherwise is without complaint. Denies cp, sob, n/v. - Current Medication List Current Medications: Active Medications Calcium Carbonate (Os-Shaheed 500mg -) 500 mg PO DAILY [facility] Last Admin: 09/10/18 09:29 Dose: 500 mg Heparin Sodium (Porcine) (Heparin -) 5,000 unit SQ TID [facility] Last Admin: 09/11/18 06:54 Dose: 5,000 unit Sodium Chloride (Normal Saline -) 250 mls @ 3,000 mls/hr IV PRN PRN PRN Reason: Hypotension during Dialysis Stop: 09/11/18 18:03 Vancomycin HCl 500 mg/ (Dextrose) 100 mls @ 100 mls/hr IVPB ONCE ONE; Protocol Stop: 09/11/18 12:52 - Objective Vital Signs: Vital Signs Temperature 37.7 C H 09/11/18 06:00 Pulse Rate 80 09/11/18 11:25 Respiratory Rate 18 09/11/18 11:25 Blood Pressure 117/50 L 09/11/18 11:25 O2 Sat by Pulse Oximetry (%) 98 09/10/18 21:00 Constitutional: Yes: No Distress, Calm, Obese Cardiovascular: Yes: Regular Rate and Rhythm. No: Gallop, Murmur, Rub Respiratory: Yes: Regular, CTA Bilaterally. No: Rales, Rhonchi, Wheezes Gastrointestinal: Yes: Normal Bowel Sounds, Soft. No: Distention, Tenderness Extremities: Yes: WNL Edema: No Labs: CBC, BMP 09/11/18 06:23 09/11/18 06:23 INR, PTT INR 0.94 (0.83-1.09) 09/08/18 23:45 Problem List - Problems (1) Bacteremia associated with intravascular line Code(s): T82.7XXA - INFECT/INFLM REACT D/T OTH CARDI/VASC DEV/IMPLNT/GRFT, INIT ; R78.81 - BACTEREMIA Qualifiers: Encounter type: initial encounter Qualified Code(s): T82.7XXA - Infection and inflammatory reaction due to other cardiac and vascular devices, implants and grafts, initial encounter; R78.81 - Bacteremia (2) ESRD (end stage renal disease) Code(s): N18.6 - END STAGE RENAL DISEASE (3) Sepsis Code(s): A41.9 - SEPSIS, UNSPECIFIED ORGANISM Qualifiers: Sepsis type: methicillin susceptible Staphylococcus aureus Qualified Code(s ): A41.01 - Sepsis due to Methicillin susceptible Staphylococcus aureus (4) HTN (hypertension) Code(s): I10 - ESSENTIAL (PRIMARY) HYPERTENSION Assessment/Plan (1) Bacteremia associated with intravascular line Assessment/Plan: -s/p line removal -leukocytosis much improved -ID note reviewed, give vancomycin 500mg IV x1 today -recheck level in am Code(s): T82.7XXA - INFECT/INFLM REACT D/T OTH CARDI/VASC DEV/IMPLNT/GRFT, INIT ; R78.81 - BACTEREMIA Qualifiers: Encounter type: initial encounter Qualified Code(s): T82.7XXA - Infection and inflammatory reaction due to other cardiac and vascular devices, implants and grafts, initial encounter; R78.81 - Bacteremia (2) ESRD (end stage renal disease) Assessment/Plan: -HD TTS -seen in HD, fistula functioning without difficulty Code(s): N18.6 - END STAGE RENAL DISEASE (3) Sepsis Assessment/Plan: -improving Code(s): A41.9 - SEPSIS, UNSPECIFIED ORGANISM Qualifiers: Sepsis type: methicillin susceptible Staphylococcus aureus Qualified Code(s ): A41.01 - Sepsis due to Methicillin susceptible Staphylococcus aureus (4) HTN (hypertension) Assessment/Plan: -elevating but not severe -will restart amlodipine 5mg tomorrow -continue to hold labetalol currently Code(s): I10 - ESSENTIAL (PRIMARY) HYPERTENSION
--- NOTE | 2018-09-11 13:50 | PN ---
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, Hypertension, Renal anemia #Fever/suspected catheter related bacteremia #Hypertension #Hyponatremia Active Medications Amlodipine Besylate (Norvasc -) 5 mg PO DAILY [facility] Calcium Carbonate (Os-Shaheed 500mg -) 500 mg PO DAILY [facility] Last Admin: 09/10/18 09:29 Dose: 500 mg Heparin Sodium (Porcine) (Heparin -) 5,000 unit SQ TID [facility] Last Admin: 09/11/18 06:54 Dose: 5,000 unit Sodium Chloride (Normal Saline -) 250 mls @ 3,000 mls/hr IV PRN PRN PRN Reason: Hypotension during Dialysis Stop: 09/11/18 18:03 Vancomycin HCl 500 mg/ (Dextrose) 100 mls @ 100 mls/hr IVPB ONCE ONE; Protocol Stop: 09/11/18 12:52 Last Vital Signs Temp Pulse Resp BP Pulse Ox 99.9 F H 80 18 117/50 L 98 09/11/18 06:00 09/11/18 11:25 09/11/18 11:25 09/11/18 11:25 09/10/18 21:00 Lungs clear Heart reg Abd soft nontender Ext no edema IMP- esrd stable Plan -maintenance HD next week
[2018-09-11] MEDS ORDERED: SODIUM CHLORIDE 250 ML IV PRN (14:10)
[2018-09-11] MEDS ORDERED: VANCOMYCIN 500 MG in DEXTROSE 5%-WATER - 100 ML IVPB ONE (15:00)
[2018-09-11] MEDS: CALCIUM (OYSTER SHELL) 500 MG TABLET (FP) PO SCH (15:25)
[2018-09-12] MEDS: HEPARIN NA (PORCINE) 5,000 UNITS/ML 1ML VIAL SQ SCH ×4 (06:56→21:16)
[2018-09-12 08:13] LABS: BLOOD UREA NITROGEN 26.5 mg/dL (7-18); CALCIUM 8.3 mg/dL (8.5-10.1); CREATININE 5.7 mg/dL (0.55-1.3); MAGNESIUM 1.8 mg/dL (1.8-2.4); PHOSPHOROUS 4.2 mg/dL (2.5-4.9); POTASSIUM 3.9 mmol/L (3.5-5.1)
[2018-09-12 08:18] LABS: BASO % 0.6 % (0-2.0); EOS % 0.7 % (0-4.5); HEMATOCRIT 27.8 % (32.4-45.2); HEMOGLOBIN 9.2 GM/dL (10.7-15.3); LYMPH % 10.9 % (8-40); MCH 28.6 pg (25.7-33.7); MEAN CELL VOLUME 86.6 fl (80-96); MEAN PLT VOLUME 8.3 fl (7.5-11.1); MONO % 10.7 % (3.8-10.2); NEUT % 77.1 % (42.8-82.8); RBC 3.21 M/mm3 (3.60-5.2); RDW 15.9 % (11.6-15.6); WHITE BLOOD COUNT 11.9 K/mm3 (4.0-10.0)
[2018-09-12 08:39] LABS: PLATELET COUNT 274 K/MM3 (134-434)
[2018-09-12] MEDS: amLODIPine BESYLATE 5 MG TABLET (FP) PO SCH (09:40)
[2018-09-12] MEDS: CALCIUM (OYSTER SHELL) 500 MG TABLET (FP) PO SCH (09:40)
--- NOTE | 2018-09-12 10:37 | PN ---
Progress Note, Physician History of Present Illness: patient stable - Current Medication List Current Medications: Active Medications Amlodipine Besylate (Norvasc -) 5 mg PO DAILY [facility] Last Admin: 09/12/18 09:40 Dose: 5 mg Calcium Carbonate (Os-Shaheed 500mg -) 500 mg PO DAILY [facility] Last Admin: 09/12/18 09:40 Dose: 500 mg Heparin Sodium (Porcine) (Heparin -) 5,000 unit SQ TID [facility] Last Admin: 09/12/18 06:56 Dose: 5,000 unit - Objective Vital Signs: Vital Signs Temperature 99.7 F H 09/12/18 06:00 Pulse Rate 92 H 09/12/18 06:00 Respiratory Rate 20 09/12/18 06:00 Blood Pressure 138/74 09/12/18 06:00 O2 Sat by Pulse Oximetry (%) 98 09/10/18 21:00 Constitutional: Yes: No Distress, Calm Cardiovascular: Yes: Regular Rate and Rhythm Respiratory: Yes: Regular, CTA Bilaterally Gastrointestinal: Yes: Normal Bowel Sounds, Soft Musculoskeletal: Yes: WNL Extremities: Yes: WNL Neurological: Yes: Alert, Oriented Psychiatric: Yes: Alert, Oriented Labs: CBC, BMP 09/12/18 06:55 09/12/18 06:55 INR, PTT INR 0.94 (0.83-1.09) 09/08/18 23:45 Assessment/Plan Problem List - Problems (1) Bacteremia associated with intravascular line Code(s): T82.7XXA - INFECT/INFLM REACT D/T OTH CARDI/VASC DEV/IMPLNT/GRFT, INIT ; R78.81 - BACTEREMIA Qualifiers: Encounter type: initial encounter Qualified Code(s): T82.7XXA - Infection and inflammatory reaction due to other cardiac and vascular devices, implants and grafts, initial encounter; R78.81 - Bacteremia (2) ESRD (end stage renal disease) Code(s): N18.6 - END STAGE RENAL DISEASE (3) Sepsis Code(s): A41.9 - SEPSIS, UNSPECIFIED ORGANISM Qualifiers: Sepsis type: methicillin susceptible Staphylococcus aureus Qualified Code(s ): A41.01 - Sepsis due to Methicillin susceptible Staphylococcus aureus (4) HTN (hypertension) Code(s): I10 - ESSENTIAL (PRIMARY) HYPERTENSION patient has received one dose of vanco plan cx report noted sensitivities noted will switch to nafcillin rest as per the team
[2018-09-12] MEDS: NAFCILLIN - 1 GM in DEXTROSE 5%-WATER - 100 ML IVPB SCH ×3 (13:08→20:56)
--- NOTE | 2018-09-12 15:49 | PN ---
Progress Note, Physician Chief Complaint: Ms Rosas says she isn't feeling good because she wants to go home but otherwise says she is feeling fine. No cp, sob, n/v. - Current Medication List Current Medications: Active Medications Amlodipine Besylate (Norvasc -) 5 mg PO DAILY [facility] Last Admin: 09/12/18 09:40 Dose: 5 mg Calcium Carbonate (Os-Shaheed 500mg -) 500 mg PO DAILY [facility] Last Admin: 09/12/18 09:40 Dose: 500 mg Heparin Sodium (Porcine) (Heparin -) 5,000 unit SQ TID [facility] Last Admin: 09/12/18 13:15 Dose: Not Given Nafcillin Sodium 1 gm/ (Dextrose) 100 mls @ 100 mls/hr IVPB Q6H-IV [facility]; Protocol Last Admin: 09/12/18 14:41 Dose: Not Given - Objective Vital Signs: Vital Signs Temperature 38.2 C H 09/12/18 15:35 Pulse Rate 105 H 09/12/18 15:35 Respiratory Rate 20 09/12/18 15:35 Blood Pressure 156/90 09/12/18 15:35 O2 Sat by Pulse Oximetry (%) 98 09/10/18 21:00 Constitutional: Yes: No Distress, Calm, Obese Cardiovascular: Yes: Regular Rate and Rhythm. No: Gallop, Murmur, Rub Respiratory: Yes: Regular, CTA Bilaterally. No: Rales, Rhonchi, Wheezes Gastrointestinal: Yes: Normal Bowel Sounds, Soft. No: Distention, Tenderness Extremities: Yes: WNL Edema: No Labs: CBC, BMP 09/12/18 06:55 09/12/18 06:55 INR, PTT INR 0.94 (0.83-1.09) 09/08/18 23:45 Problem List - Problems (1) Bacteremia associated with intravascular line Code(s): T82.7XXA - INFECT/INFLM REACT D/T OTH CARDI/VASC DEV/IMPLNT/GRFT, INIT ; R78.81 - BACTEREMIA Qualifiers: Encounter type: initial encounter Qualified Code(s): T82.7XXA - Infection and inflammatory reaction due to other cardiac and vascular devices, implants and grafts, initial encounter; R78.81 - Bacteremia (2) ESRD (end stage renal disease) Code(s): N18.6 - END STAGE RENAL DISEASE (3) Sepsis Code(s): A41.9 - SEPSIS, UNSPECIFIED ORGANISM Qualifiers: Sepsis type: methicillin susceptible Staphylococcus aureus Qualified Code(s ): A41.01 - Sepsis due to Methicillin susceptible Staphylococcus aureus (4) HTN (hypertension) Code(s): I10 - ESSENTIAL (PRIMARY) HYPERTENSION Assessment/Plan (1) Bacteremia associated with intravascular line Assessment/Plan: -s/p line removal -leukocytosis almost resolved -blood cultures noted, growing MSSA -antibiotics changed to nafcillin -antibiotic course per Dr Bryant Code(s): T82.7XXA - INFECT/INFLM REACT D/T OTH CARDI/VASC DEV/IMPLNT/GRFT, INIT ; R78.81 - BACTEREMIA Qualifiers: Encounter type: initial encounter Qualified Code(s): T82.7XXA - Infection and inflammatory reaction due to other cardiac and vascular devices, implants and grafts, initial encounter; R78.81 - Bacteremia (2) ESRD (end stage renal disease) Assessment/Plan: -HD TTS -seen in HD, fistula functioning without difficulty Code(s): N18.6 - END STAGE RENAL DISEASE (3) Sepsis Assessment/Plan: -still with fevers -nafcillin as above Code(s): A41.9 - SEPSIS, UNSPECIFIED ORGANISM Qualifiers: Sepsis type: methicillin susceptible Staphylococcus aureus Qualified Code(s ): A41.01 - Sepsis due to Methicillin susceptible Staphylococcus aureus (4) HTN (hypertension) Assessment/Plan: -elevating -amlodipine given today -restart labetalol Code(s): I10 - ESSENTIAL (PRIMARY) HYPERTENSION
--- NOTE | 2018-09-12 20:18 | PN ---
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, Hypertension, Renal anemia #Fever/suspected catheter related bacteremia #Hypertension #Hyponatremia Current Medications Amlodipine Besylate (Norvasc -) 5 mg PO DAILY [facility] Last Admin: 09/12/18 09:40 Dose: 5 mg Calcium Carbonate (Os-Shaheed 500mg -) 500 mg PO DAILY [facility] Last Admin: 09/12/18 09:40 Dose: 500 mg Heparin Sodium (Porcine) (Heparin -) 5,000 unit SQ TID [facility] Last Admin: 09/12/18 13:15 Dose: Not Given Nafcillin Sodium 1 gm/ (Dextrose) 100 mls @ 100 mls/hr IVPB Q6H-IV [facility]; Protocol Last Admin: 09/12/18 14:41 Dose: Not Given Labetalol HCl (Normodyne -) 300 mg PO BID [facility] Last Vital Signs Temp Pulse Resp BP Pulse Ox 101.3 F H 104 H 20 140/85 99 09/12/18 18:00 09/12/18 18:00 09/12/18 18:00 09/12/18 18:00 09/12/18 09:00 Lungs clear Heart reg Abd soft nontender Ext no edema CBC, BMP 09/12/18 06:55 09/12/18 06:55 IMP- esrd stable Plan -maintenance HD thursday
[2018-09-12] MEDS: LABETALOL HCL 100 MG TABLET (FP) PO SCH (21:16)
[2018-09-12] MEDS ORDERED: ACETAMINOPHEN 325 MG TABLET (FP) PO PRN (23:13)
[2018-09-13] MEDS: NAFCILLIN - 1 GM in DEXTROSE 5%-WATER - 100 ML IVPB SCH ×4 (03:00→21:28)
[2018-09-13] MEDS: HEPARIN NA (PORCINE) 5,000 UNITS/ML 1ML VIAL SQ SCH ×3 (06:20→21:46)
--- NOTE | 2018-09-13 08:20 | PN ---
Progress Note, Physician Chief Complaint: Ms Rosas is without complaint. No cp, sob, n/v. - Current Medication List Current Medications: Active Medications Acetaminophen (Tylenol -) 650 mg PO Q6H PRN PRN Reason: MILD PAIN Last Admin: 09/12/18 23:30 Dose: 650 mg Amlodipine Besylate (Norvasc -) 5 mg PO DAILY [facility] Last Admin: 09/12/18 09:40 Dose: 5 mg Calcium Carbonate (Os-Shaheed 500mg -) 500 mg PO DAILY [facility] Last Admin: 09/12/18 09:40 Dose: 500 mg Heparin Sodium (Porcine) (Heparin -) 5,000 unit SQ TID [facility] Last Admin: 09/13/18 06:20 Dose: 5,000 unit Nafcillin Sodium 1 gm/ (Dextrose) 100 mls @ 100 mls/hr IVPB Q6H-IV [facility]; Protocol Last Admin: 09/13/18 03:00 Dose: 100 mls/hr Labetalol HCl (Normodyne -) 300 mg PO BID [facility] Last Admin: 09/12/18 21:16 Dose: 300 mg - Objective Vital Signs: Vital Signs Temperature 36.4 C L 09/13/18 06:01 Pulse Rate 70 09/13/18 06:01 Respiratory Rate 20 09/13/18 06:01 Blood Pressure 108/63 09/13/18 06:01 O2 Sat by Pulse Oximetry (%) 99 09/12/18 21:00 Constitutional: Yes: No Distress, Calm, Obese Cardiovascular: Yes: Regular Rate and Rhythm. No: Gallop, Murmur, Rub Respiratory: Yes: Regular, CTA Bilaterally. No: Rales, Rhonchi, Wheezes Gastrointestinal: Yes: Normal Bowel Sounds, Soft. No: Distention, Tenderness Extremities: Yes: WNL Edema: No Labs: CBC, BMP 09/12/18 06:55 09/12/18 06:55 INR, PTT INR 0.94 (0.83-1.09) 09/08/18 23:45 Problem List - Problems (1) Bacteremia associated with intravascular line Code(s): T82.7XXA - INFECT/INFLM REACT D/T OTH CARDI/VASC DEV/IMPLNT/GRFT, INIT ; R78.81 - BACTEREMIA Qualifiers: Encounter type: initial encounter Qualified Code(s): T82.7XXA - Infection and inflammatory reaction due to other cardiac and vascular devices, implants and grafts, initial encounter; R78.81 - Bacteremia (2) ESRD (end stage renal disease) Code(s): N18.6 - END STAGE RENAL DISEASE (3) Sepsis Code(s): A41.9 - SEPSIS, UNSPECIFIED ORGANISM Qualifiers: Sepsis type: methicillin susceptible Staphylococcus aureus Qualified Code(s ): A41.01 - Sepsis due to Methicillin susceptible Staphylococcus aureus (4) HTN (hypertension) Code(s): I10 - ESSENTIAL (PRIMARY) HYPERTENSION Assessment/Plan (1) Bacteremia associated with intravascular line Assessment/Plan: -s/p line removal -awaiting CBC to evaluate leukocytosis -blood cultures noted, growing MSSA -antibiotics changed to nafcillin -antibiotic course per Dr Bryant -still with fevers overnight Code(s): T82.7XXA - INFECT/INFLM REACT D/T OTH CARDI/VASC DEV/IMPLNT/GRFT, INIT ; R78.81 - BACTEREMIA Qualifiers: Encounter type: initial encounter Qualified Code(s): T82.7XXA - Infection and inflammatory reaction due to other cardiac and vascular devices, implants and grafts, initial encounter; R78.81 - Bacteremia (2) ESRD (end stage renal disease) Assessment/Plan: -HD TTS -seen in HD, fistula functioning without difficulty Code(s): N18.6 - END STAGE RENAL DISEASE (3) Sepsis Assessment/Plan: -still with fevers -nafcillin as above Code(s): A41.9 - SEPSIS, UNSPECIFIED ORGANISM Qualifiers: Sepsis type: methicillin susceptible Staphylococcus aureus Qualified Code(s ): A41.01 - Sepsis due to Methicillin susceptible Staphylococcus aureus (4) HTN (hypertension) Assessment/Plan: -continue amlodipine and labetalol Code(s): I10 - ESSENTIAL (PRIMARY) HYPERTENSION
[2018-09-13 09:00] LABS: BASO % 0.9 % (0-2.0); EOS % 1.3 % (0-4.5); HEMOGLOBIN 8.9 GM/dL (10.7-15.3); LYMPH % 17.9 % (8-40); MCH 28.6 pg (25.7-33.7); MCHC 33.2 g/dl (32.0-36.0); MEAN CELL VOLUME 86.2 fl (80-96); MEAN PLT VOLUME 8.4 fl (7.5-11.1); NEUT % 67.9 % (42.8-82.8); PLATELET COUNT 303 K/MM3 (134-434); RBC 3.13 M/mm3 (3.60-5.2); RDW 15.6 % (11.6-15.6); WHITE BLOOD COUNT 8.3 K/mm3 (4.0-10.0)
[2018-09-13 09:28] LABS: BLOOD UREA NITROGEN 39.4 mg/dL (7-18); CALCIUM 8.5 mg/dL (8.5-10.1); MAGNESIUM 2.4 mg/dL (1.8-2.4); PHOSPHOROUS 6.9 mg/dL (2.5-4.9); POTASSIUM 4.2 mmol/L (3.5-5.1)
[2018-09-13 09:34] LABS: CREATININE 7.7 mg/dL (0.55-1.3)
--- NOTE | 2018-09-13 10:14 | PN ---
Progress Note, Physician History of Present Illness: patient spiked multiple times currently stable - Current Medication List Current Medications: Active Medications Acetaminophen (Tylenol -) 650 mg PO Q6H PRN PRN Reason: MILD PAIN Last Admin: 09/12/18 23:30 Dose: 650 mg Amlodipine Besylate (Norvasc -) 5 mg PO DAILY [facility] Last Admin: 09/12/18 09:40 Dose: 5 mg Calcium Carbonate (Os-Shaheed 500mg -) 500 mg PO DAILY [facility] Last Admin: 09/12/18 09:40 Dose: 500 mg Heparin Sodium (Porcine) (Heparin -) 5,000 unit SQ TID [facility] Last Admin: 09/13/18 06:20 Dose: 5,000 unit Nafcillin Sodium 1 gm/ (Dextrose) 100 mls @ 100 mls/hr IVPB Q6H-IV [facility]; Protocol Last Admin: 09/13/18 03:00 Dose: 100 mls/hr Labetalol HCl (Normodyne -) 300 mg PO BID [facility] Last Admin: 09/12/18 21:16 Dose: 300 mg - Objective Vital Signs: Vital Signs Temperature 97.5 F L 09/13/18 06:01 Pulse Rate 70 09/13/18 06:01 Respiratory Rate 20 09/13/18 06:01 Blood Pressure 108/63 09/13/18 06:01 O2 Sat by Pulse Oximetry (%) 99 09/12/18 21:00 Constitutional: Yes: No Distress, Calm Cardiovascular: Yes: S1, S2 Respiratory: Yes: Regular, CTA Bilaterally Gastrointestinal: Yes: Normal Bowel Sounds, Soft Musculoskeletal: Yes: WNL Extremities: Yes: WNL Neurological: Yes: Alert, Oriented Psychiatric: Yes: Alert, Oriented Labs: CBC, BMP 09/13/18 08:15 09/13/18 08:15 INR, PTT INR 0.94 (0.83-1.09) 09/08/18 23:45 Assessment/Plan Problem List - Problems (1) Bacteremia associated with intravascular line Code(s): T82.7XXA - INFECT/INFLM REACT D/T OTH CARDI/VASC DEV/IMPLNT/GRFT, INIT ; R78.81 - BACTEREMIA Qualifiers: Encounter type: initial encounter Qualified Code(s): T82.7XXA - Infection and inflammatory reaction due to other cardiac and vascular devices, implants and grafts, initial encounter; R78.81 - Bacteremia (2) ESRD (end stage renal disease) Code(s): N18.6 - END STAGE RENAL DISEASE (3) Sepsis Code(s): A41.9 - SEPSIS, UNSPECIFIED ORGANISM Qualifiers: Sepsis type: methicillin susceptible Staphylococcus aureus Qualified Code(s ): A41.01 - Sepsis due to Methicillin susceptible Staphylococcus aureus (4) HTN (hypertension) Code(s): I10 - ESSENTIAL (PRIMARY) HYPERTENSION patient has received one dose of vanco plan patient continues to spike fever continue abx re cx if patient spikes rest as per the team
[2018-09-13] MEDS ORDERED: PT OWN MED DRAWER 7, Y5N ONE ×4 (10:25→21:18)
[2018-09-13] MEDS: amLODIPine BESYLATE 5 MG TABLET (FP) PO SCH (10:29)
[2018-09-13] MEDS: LABETALOL HCL 100 MG TABLET (FP) PO SCH ×2 (10:29→21:46)
[2018-09-13] MEDS: CALCIUM (OYSTER SHELL) 500 MG TABLET (FP) PO SCH (10:29)
--- NOTE | 2018-09-13 16:17 | PN ---
Progress Note (short form) - Note Progress Note: Renal follow up for ESRD on HD Pt seen and examined at the bedside was febrile overnight, feels better now no sob, cp, abd pain, fever or chills last dialysis was Thursday Vital Signs Temperature 97.6 F 09/13/18 15:55 Pulse Rate 81 09/13/18 15:55 Respiratory Rate 20 09/13/18 15:55 Blood Pressure 111/60 09/13/18 15:55 O2 Sat by Pulse Oximetry (%) 98 09/13/18 10:00 Vital Signs Temperature 97.6 F 09/13/18 15:55 Pulse Rate 81 09/13/18 15:55 Respiratory Rate 20 09/13/18 15:55 Blood Pressure 111/60 09/13/18 15:55 O2 Sat by Pulse Oximetry (%) 98 09/13/18 10:00 NAD awake and alert neck supple, no JVD RRR, no M/R CTA, no rales or wheeze soft NT/ND no LE edema CBC, BMP 09/13/18 08:15 09/13/18 08:15 Current Medications Acetaminophen (Tylenol -) 650 mg PO Q6H PRN PRN Reason: MILD PAIN Last Admin: 09/12/18 23:30 Dose: 650 mg Amlodipine Besylate (Norvasc -) 5 mg PO DAILY [facility] Last Admin: 09/13/18 10:29 Dose: 5 mg Calcium Acetate (Phoslo -) 667 mg PO TIDCM [facility] Calcium Carbonate (Os-Shaheed 500mg -) 500 mg PO DAILY [facility] Last Admin: 09/13/18 10:29 Dose: 500 mg Heparin Sodium (Porcine) (Heparin -) 5,000 unit SQ TID [facility] Last Admin: 09/13/18 14:41 Dose: 5,000 unit Nafcillin Sodium 1 gm/ (Dextrose) 100 mls @ 100 mls/hr IVPB Q6H-IV [facility]; Protocol Last Admin: 09/13/18 14:40 Dose: 100 mls/hr Labetalol HCl (Normodyne -) 300 mg PO BID [facility] Last Admin: 09/13/18 10:29 Dose: 300 mg 38 year old woman with hx of 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 #ESRD on HD #Fever with ] catheter related bacteremia MSSA #Chronic Anemia #Hypertension #Hyponatremia #Hyperphosphatemia repeat cultures still w/o growth however pt did have fever yesterday Abx adjusted to nafcillin as per ID for dialysis tomorrow with UF as tolerated start phos binder with meals will continue NAVYA with dialysis Thank you Von Dillon DO
[2018-09-13] MEDS: CALCIUM ACETATE 667 MG CAPSULE (FP) PO SCH (18:24)
[2018-09-14] MEDS: NAFCILLIN - 1 GM in DEXTROSE 5%-WATER - 100 ML IVPB SCH ×4 (02:57→21:14)
[2018-09-14] MEDS: HEPARIN NA (PORCINE) 5,000 UNITS/ML 1ML VIAL SQ SCH ×3 (06:42→21:15)
[2018-09-14 09:00] LABS: BASO % 1.1 % (0-2.0); EOS % 8.9 % (0-4.5); HEMATOCRIT 26.6 % (32.4-45.2); HEMOGLOBIN 8.8 GM/dL (10.7-15.3); MCH 28.6 pg (25.7-33.7); MCHC 33.2 g/dl (32.0-36.0); MEAN CELL VOLUME 86.1 fl (80-96); MEAN PLT VOLUME 8.5 fl (7.5-11.1); MONO % 7.4 % (3.8-10.2); NEUT % 65.6 % (42.8-82.8); PLATELET COUNT 349 K/MM3 (134-434); RBC 3.09 M/mm3 (3.60-5.2); RDW 16.1 % (11.6-15.6); WHITE BLOOD COUNT 8.5 K/mm3 (4.0-10.0)
[2018-09-14] MEDS ORDERED: EPOETIN ALFA 20,000 UNIT/1 ML VIAL IVPUSH ONE (09:00)
[2018-09-14] MEDS ORDERED: SODIUM CHLORIDE 250 ML IV PRN (09:00)
[2018-09-14] MEDS ORDERED: PT OWN MED DRAWER 7, Y5N ONE ×3 (09:20→20:55)
[2018-09-14 09:27] LABS: BLOOD UREA NITROGEN 53.3 mg/dL (7-18); CALCIUM 8.2 mg/dL (8.5-10.1); MAGNESIUM 2.4 mg/dL (1.8-2.4); PHOSPHOROUS 6.4 mg/dL (2.5-4.9)
[2018-09-14] MEDS: CALCIUM ACETATE 667 MG CAPSULE (FP) PO SCH ×3 (09:30→18:33)
[2018-09-14 09:31] LABS: CREATININE 8.6 mg/dL (0.55-1.3)
[2018-09-14] MEDS: LABETALOL HCL 100 MG TABLET (FP) PO SCH ×2 (12:48→21:14)
[2018-09-14] MEDS: amLODIPine BESYLATE 5 MG TABLET (FP) PO SCH (12:48)
[2018-09-14] MEDS: CALCIUM (OYSTER SHELL) 500 MG TABLET (FP) PO SCH (12:48)
--- NOTE | 2018-09-14 14:36 | PN ---
Progress Note, Physician History of Present Illness: patient stable no new issues - Current Medication List Current Medications: Active Medications Acetaminophen (Tylenol -) 650 mg PO Q6H PRN PRN Reason: MILD PAIN Last Admin: 09/12/18 23:30 Dose: 650 mg Amlodipine Besylate (Norvasc -) 5 mg PO DAILY [facility] Last Admin: 09/14/18 12:48 Dose: 5 mg Calcium Acetate (Phoslo -) 667 mg PO TIDCM [facility] Last Admin: 09/14/18 12:48 Dose: 667 mg Calcium Carbonate (Os-Shaheed 500mg -) 500 mg PO DAILY [facility] Last Admin: 09/14/18 12:48 Dose: 500 mg Heparin Sodium (Porcine) (Heparin -) 5,000 unit SQ TID [facility] Last Admin: 09/14/18 06:42 Dose: 5,000 unit Nafcillin Sodium 1 gm/ (Dextrose) 100 mls @ 100 mls/hr IVPB Q6H-IV [facility]; Protocol Last Admin: 09/14/18 11:22 Dose: 100 mls/hr Sodium Chloride (Normal Saline -) 250 mls @ 3,000 mls/hr IV PRN PRN PRN Reason: Hypotension during Dialysis Stop: 09/14/18 22:00 Labetalol HCl (Normodyne -) 300 mg PO BID [facility] Last Admin: 09/14/18 12:48 Dose: 300 mg - Objective Vital Signs: Vital Signs Temperature 99.1 F 09/14/18 12:00 Pulse Rate 96 H 09/14/18 12:00 Respiratory Rate 18 09/14/18 12:00 Blood Pressure 127/67 09/14/18 12:00 O2 Sat by Pulse Oximetry (%) 99 09/13/18 21:00 Constitutional: Yes: No Distress, Calm Cardiovascular: Yes: Regular Rate and Rhythm Respiratory: Yes: Regular, CTA Bilaterally Gastrointestinal: Yes: Normal Bowel Sounds, Soft Musculoskeletal: Yes: WNL Extremities: Yes: WNL Neurological: Yes: Alert, Oriented Psychiatric: Yes: Alert, Oriented Labs: CBC, BMP 09/14/18 08:00 09/14/18 08:00 INR, PTT INR 0.94 (0.83-1.09) 09/08/18 23:45 Assessment/Plan Problem List - Problems (1) Bacteremia associated with intravascular line Code(s): T82.7XXA - INFECT/INFLM REACT D/T OTH CARDI/VASC DEV/IMPLNT/GRFT, INIT ; R78.81 - BACTEREMIA Qualifiers: Encounter type: initial encounter Qualified Code(s): T82.7XXA - Infection and inflammatory reaction due to other cardiac and vascular devices, implants and grafts, initial encounter; R78.81 - Bacteremia (2) ESRD (end stage renal disease) Code(s): N18.6 - END STAGE RENAL DISEASE (3) Sepsis Code(s): A41.9 - SEPSIS, UNSPECIFIED ORGANISM Qualifiers: Sepsis type: methicillin susceptible Staphylococcus aureus Qualified Code(s ): A41.01 - Sepsis due to Methicillin susceptible Staphylococcus aureus (4) HTN (hypertension) Code(s): I10 - ESSENTIAL (PRIMARY) HYPERTENSION patient has received one dose of vanco plan continue abx will watch fever
--- NOTE | 2018-09-14 16:32 | PN ---
Progress Note (short form) - Note Progress Note: Renal follow up for ESRD on HD Pt seen and examined at the bedside no acute complaints had low grade fever 100.1 after dialysis today tolerated dialysis w/o issue no sob, cp, abd pain Vital Signs Temperature 100.1 F H 09/14/18 15:00 Pulse Rate 85 09/14/18 15:00 Respiratory Rate 18 09/14/18 15:00 Blood Pressure 127/59 L 09/14/18 15:00 O2 Sat by Pulse Oximetry (%) 97 09/14/18 08:00 Intake & Output 09/11/18 09/12/18 09/13/18 09/14/18 23:59 23:59 23:59 23:59 Intake Total 875 1205 1560 300 Output Total 1 Balance 875 1205 1560 299 Weight 77.292 kg 75.4 kg NAD RRR, no M/R CTA, no rales or wheeze soft NT/ND no LE edema CBC, BMP 09/14/18 08:00 09/14/18 08:00 Current Medications Acetaminophen (Tylenol -) 650 mg PO Q6H PRN PRN Reason: MILD PAIN Last Admin: 09/12/18 23:30 Dose: 650 mg Amlodipine Besylate (Norvasc -) 5 mg PO DAILY [facility] Last Admin: 09/14/18 12:48 Dose: 5 mg Calcium Acetate (Phoslo -) 667 mg PO TIDCM [facility] Last Admin: 09/14/18 12:48 Dose: 667 mg Calcium Carbonate (Os-Shaheed 500mg -) 500 mg PO DAILY [facility] Last Admin: 09/14/18 12:48 Dose: 500 mg Heparin Sodium (Porcine) (Heparin -) 5,000 unit SQ TID [facility] Last Admin: 09/14/18 15:39 Dose: 5,000 unit Nafcillin Sodium 1 gm/ (Dextrose) 100 mls @ 100 mls/hr IVPB Q6H-IV [facility]; Protocol Last Admin: 09/14/18 15:39 Dose: 100 mls/hr Sodium Chloride (Normal Saline -) 250 mls @ 3,000 mls/hr IV PRN PRN PRN Reason: Hypotension during Dialysis Stop: 09/14/18 22:00 Labetalol HCl (Normodyne -) 300 mg PO BID [facility] Last Admin: 09/14/18 12:48 Dose: 300 mg 38 year old woman with hx of 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 #ESRD on HD #Fever with ] catheter related bacteremia MSSA #Chronic Anemia #Hypertension #Hyponatremia #Hyperphosphatemia tolerated dialysis w/o issue had low grade fever this afternoon per ID needs to be fever free for 24 hours on Nafcilln repeat cultures w/o growth Thank you Von Dillon DO
--- NOTE | 2018-09-14 18:03 | PN ---
Physical Exam: SUBJECTIVE: Patient seen and examined, denies any pain or complaints. No nausea , vomiting, abdominal pain or urinary symptoms. OBJECTIVE: Vital Signs Period Temp Pulse Resp BP Sys/James Pulse Ox Last 24 Hr 98.3 F-100.1 F 73-96 18-20 106-144/51-82 97-99 Intake & Output 09/11/18 09/12/18 09/13/18 09/14/18 23:59 23:59 23:59 23:59 Intake Total 875 1205 1560 300 Output Total 1 Balance 875 1205 1560 299 Weight 170 lb 6.4 oz 166 lb 3.657 oz GENERAL: lying in bed, getting HD via Left AV fistula Neck: soft, supple, no JVD Chest: no rales or wheezing, right HD cath site clean with dressing Abdomen:Soft, obese, NT Extremities: 1+ pedal edema CVS:S1s2 regular Laboratory Results - last 24 hr 09/14/18 09/14/18 08:00 08:00 WBC 8.5 RBC 3.09 L Hgb 8.8 L Hct 26.6 L MCV 86.1 MCH 28.6 MCHC 33.2 RDW 16.1 H Plt Count 349 MPV 8.5 Absolute Neuts (auto) 5.6 Neutrophils % 65.6 Lymphocytes % 17.0 Monocytes % 7.4 Eosinophils % 8.9 H D Basophils % 1.1 Nucleated RBC % 0 Sodium 135 L Potassium 4.0 Chloride 102 Carbon Dioxide 21 Anion Gap 11 BUN 53.3 H Creatinine 8.6 H* Est GFR (CKD-EPI)AfAm 6.05 Est GFR (CKD-EPI)NonAf 5.22 Random Glucose 104 Calcium 8.2 L Phosphorus 6.4 H Magnesium 2.4 Active Medications Home Medications Medication Instructions Recorded Labetalol HCl 300 mg PO BID 06/29/18 Amlodipine Besylate [Norvasc -] 5 mg PO DAILY tablet 07/02/18 Calcium (Oyster Shell) [Os-Shaheed 500 mg PO DAILY #60 tablet 07/02/18 500MG -] Cefazolin Sodium in 0.9 % NaCl 3 gm IV Q72H 14 Days #6 piggyback 08/09/18 [Cefazolin 3 G/100 ml-0.9% NaCl] Generic Name Dose Route Start Last Admin Trade Name Freq PRN Reason Stop Dose Admin Acetaminophen 650 mg 09/12/18 23:13 09/12/18 23:30 Tylenol - PO 650 mg Q6H PRN Administration MILD PAIN Amlodipine Besylate 5 mg 09/12/18 10:00 09/14/18 12:48 Norvasc - PO 5 mg DAILY [facility] Administration Calcium Acetate 667 mg 09/13/18 17:30 09/14/18 12:48 Phoslo - PO 667 mg TIDCM [facility] Administration Calcium Carbonate 500 mg 09/10/18 10:00 09/14/18 12:48 Os-Shaheed 500mg - PO 500 mg DAILY [facility] Administration Heparin Sodium (Porcine) 5,000 unit 09/09/18 06:00 09/14/18 15:39 Heparin - SQ 5,000 unit TID [facility] Administration Nafcillin Sodium 1 gm/ 100 mls @ 100 mls/hr 09/12/18 10:45 09/14/18 15:39 Dextrose IVPB 100 mls/hr Q6H-IV [facility] Administration Protocol Sodium Chloride 250 mls @ 3,000 mls/hr 09/14/18 09:00 Normal Saline - IV 09/14/18 22:00 PRN PRN Hypotension during Dialysis Labetalol HCl 300 mg 09/12/18 22:00 09/14/18 12:48 Normodyne - PO 300 mg BID [facility] Administration Microbiology 09/10/18 11:39 Blood - Peripheral Venous Blood Culture - Preliminary NO GROWTH OBTAINED AFTER 96 HOURS, INCUBATION TO CONTINUE FOR 1 DAYS. 09/10/18 11:25 Blood - Peripheral Venous Blood Culture - Preliminary NO GROWTH OBTAINED AFTER 96 HOURS, INCUBATION TO CONTINUE FOR 1 DAYS. 09/08/18 23:45 Blood - Peripheral Venous Blood Culture - Final Staphylococcus Latex Coag Pos 09/08/18 23:45 Blood - Peripheral Venous Blood Culture - Final Staphylococcus Aureus 09/09/18 00:18 Urine - Urine Clean Catch Urine Culture - Final NO GROWTH OBTAINED ASSESSMENT/PLAN: 38 yof with PMHx of ESRD from IgA nephropathy, HTN, anemia of chronic disease, recent line sepsis from left IJ HD catheter, on cefazolin admitted with suspected Right subclavian cath line sepsis -MSSA bacteremia, suspected Right HD cath sepsis -ESRD from IgA nephropathy -HTN -Anemia of chronic disease Plan: Renal input noted, HD catheter removed. HD via AV fistula today. Nafcillin. Repeat blood cx neg so far. Recurrent fevers, 2D echo noted. s/p vanco per ID. Monitor for recurrent fevers and additional work up accordingly. Amlodipine/labetalol/heparin Dispo pending fever resolution and clinical improvement. Visit type - Emergency Visit Emergency Visit: Yes ED Registration Date: 09/09/18 Care time: The patient presented to the Emergency Department on the above date and was hospitalized for further evaluation of their emergent condition. - New Patient This patient is new to me today: Yes Date on this admission: 09/14/18 - Critical Care Critical Care patient: No - Discharge Referral Referred to [facility] Med P.C.: No
[2018-09-15] MEDS: NAFCILLIN - 1 GM in DEXTROSE 5%-WATER - 100 ML IVPB SCH ×4 (02:37→21:13)
[2018-09-15] MEDS: HEPARIN NA (PORCINE) 5,000 UNITS/ML 1ML VIAL SQ SCH ×3 (06:42→21:13)
[2018-09-15] MEDS ORDERED: PT OWN MED DRAWER 7, Y5N ONE ×2 (08:27→20:38)
[2018-09-15] MEDS: CALCIUM ACETATE 667 MG CAPSULE (FP) PO SCH ×3 (08:32→18:01)
[2018-09-15 08:50] LABS: BASO % 1.3 % (0-2.0); EOS % 9.9 % (0-4.5); HEMATOCRIT 26.1 % (32.4-45.2); HEMOGLOBIN 8.6 GM/dL (10.7-15.3); LYMPH % 17.2 % (8-40); MCH 28.8 pg (25.7-33.7); MCHC 33.1 g/dl (32.0-36.0); MEAN PLT VOLUME 8.3 fl (7.5-11.1); MONO % 12.9 % (3.8-10.2); NEUT % 58.7 % (42.8-82.8); PLATELET COUNT 341 K/MM3 (134-434); WHITE BLOOD COUNT 6.2 K/mm3 (4.0-10.0)
[2018-09-15 09:22] LABS: BILIRUBIN,TOTAL 0.5 mg/dL (0.2-1); BLOOD UREA NITROGEN 28.9 mg/dL (7-18); CALCIUM 8.1 mg/dL (8.5-10.1); CREATININE 6.3 mg/dL (0.55-1.3); MAGNESIUM 2.2 mg/dL (1.8-2.4); POTASSIUM 3.7 mmol/L (3.5-5.1); TOT PROT 6.8 g/dl (6.4-8.2)
--- NOTE | 2018-09-15 10:24 | PN ---
Physical Exam: SUBJECTIVE: Patient seen and examined, no complaints. OBJECTIVE: Vital Signs Period Temp Pulse Resp BP Sys/James Pulse Ox Last 24 Hr 98.7 F-100.1 F 74-96 18-20 87-132/52-76 97 Intake & Output 09/12/18 09/13/18 09/14/18 09/15/18 23:59 23:59 23:59 23:59 Intake Total 1205 1560 1200 100 Output Total 2 Balance 1205 1560 1198 100 Weight 166 lb 3.657 oz GENERAL: sitting in bed in no acute distress Chest: CTAB, no rales or wheezing Abdomen:soft, obese, superficial left armani-umbilical tenderness, none on deep palpation, no voluntary or involuntary guarding or rigidity, pos bowel sounds Extremities: left arm AV fistula Laboratory Results - last 24 hr 09/14/18 09/15/18 09/15/18 08:00 08:00 08:00 WBC 8.5 6.2 RBC 3.09 L 3.00 L Hgb 8.8 L 8.6 L Hct 26.6 L 26.1 L MCV 86.1 87.0 MCH 28.6 28.8 MCHC 33.2 33.1 RDW 16.1 H 16.0 H Plt Count 349 341 MPV 8.5 8.3 Absolute Neuts (auto) 5.6 3.6 Neutrophils % 65.6 58.7 Lymphocytes % 17.0 17.2 Monocytes % 7.4 12.9 H Eosinophils % 8.9 H D 9.9 H Basophils % 1.1 1.3 Nucleated RBC % 0 0 Sodium 136 Potassium 3.7 Chloride 100 Carbon Dioxide 29 Anion Gap 7 L BUN 28.9 H Creatinine 6.3 H Est GFR (CKD-EPI)AfAm 8.82 Est GFR (CKD-EPI)NonAf 7.61 Random Glucose 81 Calcium 8.1 L Phosphorus 5.0 H Magnesium 2.2 Total Bilirubin 0.5 AST 13 L ALT 10 L Alkaline Phosphatase 116 Total Protein 6.8 Albumin 3.0 L Active Medications Generic Name Dose Route Start Last Admin Trade Name Freq PRN Reason Stop Dose Admin Acetaminophen 650 mg 09/12/18 23:13 09/12/18 23:30 Tylenol - PO 650 mg Q6H PRN Administration MILD PAIN Amlodipine Besylate 5 mg 09/12/18 10:00 09/14/18 12:48 Norvasc - PO 5 mg DAILY [facility] Administration Calcium Acetate 667 mg 09/13/18 17:30 09/15/18 08:32 Phoslo - PO 667 mg TIDCM [facility] Administration Calcium Carbonate 500 mg 09/10/18 10:00 09/14/18 12:48 Os-Shaheed 500mg - PO 500 mg DAILY [facility] Administration Heparin Sodium (Porcine) 5,000 unit 09/09/18 06:00 09/15/18 06:42 Heparin - SQ 5,000 unit TID [facility] Administration Nafcillin Sodium 1 gm/ 100 mls @ 100 mls/hr 09/12/18 10:45 09/15/18 08:32 Dextrose IVPB 100 mls/hr Q6H-IV [facility] Administration Protocol Labetalol HCl 300 mg 09/12/18 22:00 09/14/18 21:14 Normodyne - PO 300 mg BID [facility] Administration Microbiology 09/10/18 11:39 Blood - Peripheral Venous Blood Culture - Preliminary NO GROWTH OBTAINED AFTER 96 HOURS, INCUBATION TO CONTINUE FOR 1 DAYS. 09/10/18 11:25 Blood - Peripheral Venous Blood Culture - Preliminary NO GROWTH OBTAINED AFTER 96 HOURS, INCUBATION TO CONTINUE FOR 1 DAYS. 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 HD via AV fistula. Nafcillin. 2decho noted, fevers improved, repeat blood cx sent 09/14, follow up.. Amlodipine/labetalol, may need to hold AM of HD. DVTPPX heparin Dispo in 24 hours if no further fevers and blood cx neg. Plan discussed with patient and nursing. Visit type - Emergency Visit Emergency Visit: Yes ED Registration Date: 09/09/18 Care time: The patient presented to the Emergency Department on the above date and was hospitalized for further evaluation of their emergent condition. - New Patient This patient is new to me today: No - Critical Care Critical Care patient: No - Discharge Referral Referred to [facility] Med P.C.: No
[2018-09-15] MEDS: amLODIPine BESYLATE 5 MG TABLET (FP) PO SCH (12:29)
[2018-09-15] MEDS: LABETALOL HCL 100 MG TABLET (FP) PO SCH ×2 (12:29→21:13)
[2018-09-15] MEDS: CALCIUM (OYSTER SHELL) 500 MG TABLET (FP) PO SCH (12:29)
[2018-09-15 13:54] LABS: ANISOCYTOSIS 1+; MACROCYTOSIS 0; PLATELET ESTIMATE NORMAL
--- NOTE | 2018-09-15 14:21 | PN ---
Progress Note, Physician History of Present Illness: patient stable no new issues feels weak - Current Medication List Current Medications: Active Medications Acetaminophen (Tylenol -) 650 mg PO Q6H PRN PRN Reason: MILD PAIN Last Admin: 09/12/18 23:30 Dose: 650 mg Amlodipine Besylate (Norvasc -) 5 mg PO DAILY [facility] Last Admin: 09/15/18 12:29 Dose: 5 mg Calcium Acetate (Phoslo -) 667 mg PO TIDCM [facility] Last Admin: 09/15/18 12:29 Dose: 667 mg Calcium Carbonate (Os-Shaheed 500mg -) 500 mg PO DAILY [facility] Last Admin: 09/15/18 12:29 Dose: 500 mg Heparin Sodium (Porcine) (Heparin -) 5,000 unit SQ TID [facility] Last Admin: 09/15/18 06:42 Dose: 5,000 unit Nafcillin Sodium 1 gm/ (Dextrose) 100 mls @ 100 mls/hr IVPB Q6H-IV [facility]; Protocol Last Admin: 09/15/18 08:32 Dose: 100 mls/hr Labetalol HCl (Normodyne -) 300 mg PO BID [facility] Last Admin: 09/15/18 12:29 Dose: 300 mg - Objective Vital Signs: Vital Signs Temperature 99.1 F 09/15/18 09:29 Pulse Rate 84 09/15/18 09:29 Respiratory Rate 20 09/15/18 09:29 Blood Pressure 135/75 09/15/18 09:29 O2 Sat by Pulse Oximetry (%) 98 09/15/18 09:00 Constitutional: Yes: No Distress, Calm Cardiovascular: Yes: Regular Rate and Rhythm Respiratory: Yes: Regular, CTA Bilaterally Gastrointestinal: Yes: Normal Bowel Sounds, Soft Musculoskeletal: Yes: WNL Extremities: Yes: WNL Neurological: Yes: Alert, Oriented Psychiatric: Yes: Alert, Oriented Labs: CBC, BMP 09/15/18 08:00 09/15/18 08:00 INR, PTT INR 0.94 (0.83-1.09) 09/08/18 23:45 Assessment/Plan Problem List - Problems (1) Bacteremia associated with intravascular line Code(s): T82.7XXA - INFECT/INFLM REACT D/T OTH CARDI/VASC DEV/IMPLNT/GRFT, INIT ; R78.81 - BACTEREMIA Qualifiers: Encounter type: initial encounter Qualified Code(s): T82.7XXA - Infection and inflammatory reaction due to other cardiac and vascular devices, implants and grafts, initial encounter; R78.81 - Bacteremia (2) ESRD (end stage renal disease) Code(s): N18.6 - END STAGE RENAL DISEASE (3) Sepsis Code(s): A41.9 - SEPSIS, UNSPECIFIED ORGANISM Qualifiers: Sepsis type: methicillin susceptible Staphylococcus aureus Qualified Code(s ): A41.01 - Sepsis due to Methicillin susceptible Staphylococcus aureus (4) HTN (hypertension) Code(s): I10 - ESSENTIAL (PRIMARY) HYPERTENSION patient has received one dose of vanco plan if patient remains afebrile and does well then patient can be d/makenzie on cefazolin will d/w the team rest as per the team
--- NOTE | 2018-09-15 17:15 | PN ---
Progress Note (short form) - Note Progress Note: Renal follow up for ESRD on HD Pt seen and examined at the bedside no acute complaints feels well no fever, chills Vital Signs Temperature 98.7 F 09/15/18 14:00 Pulse Rate 79 09/15/18 14:00 Respiratory Rate 20 09/15/18 14:00 Blood Pressure 106/55 L 09/15/18 14:00 O2 Sat by Pulse Oximetry (%) 98 09/15/18 09:00 Intake & Output 09/12/18 09/13/18 09/14/18 09/15/18 23:59 23:59 23:59 23:59 Intake Total 1205 1560 1200 100 Output Total 2 1 Balance 1205 1560 1198 99 Weight 75.4 kg NAD RRR, no M/R CTA, no rales or wheeze soft NT/ND no LE edema CBC, BMP 09/15/18 08:00 09/15/18 08:00 Current Medications Acetaminophen (Tylenol -) 650 mg PO Q6H PRN PRN Reason: MILD PAIN Last Admin: 09/12/18 23:30 Dose: 650 mg Amlodipine Besylate (Norvasc -) 5 mg PO DAILY [facility] Last Admin: 09/15/18 12:29 Dose: 5 mg Calcium Acetate (Phoslo -) 667 mg PO TIDCM [facility] Last Admin: 09/15/18 12:29 Dose: 667 mg Calcium Carbonate (Os-Shaheed 500mg -) 500 mg PO DAILY [facility] Last Admin: 09/15/18 12:29 Dose: 500 mg Heparin Sodium (Porcine) (Heparin -) 5,000 unit SQ TID [facility] Last Admin: 09/15/18 14:53 Dose: 5,000 unit Nafcillin Sodium 1 gm/ (Dextrose) 100 mls @ 100 mls/hr IVPB Q6H-IV [facility]; Protocol Last Admin: 09/15/18 14:53 Dose: 100 mls/hr Labetalol HCl (Normodyne -) 300 mg PO BID [facility] Last Admin: 09/15/18 12:29 Dose: 300 mg 38 year old woman with hx of 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 #ESRD on HD #Fever with ] catheter related bacteremia MSSA #Chronic Anemia #Hypertension #Hyponatremia #Hyperphosphatemia no acute need for [employer] today next dialysis tomorrow Will give Ancef 2g IV post HD tomorrow possible discharge tomorrow Thank you Von Dillon DO
[2018-09-16] MEDS ORDERED: PT OWN MED DRAWER 7, Y5N ONE ×3 (01:02→14:55)
[2018-09-16] MEDS: NAFCILLIN - 1 GM in DEXTROSE 5%-WATER - 100 ML IVPB SCH ×3 (02:41→15:07)
[2018-09-16] MEDS: HEPARIN NA (PORCINE) 5,000 UNITS/ML 1ML VIAL SQ SCH ×2 (05:56→14:00)
[2018-09-16] MEDS ORDERED: SODIUM CHLORIDE 250 ML IV PRN (06:00)
[2018-09-16] MEDS: CALCIUM ACETATE 667 MG CAPSULE (FP) PO SCH ×2 (08:19→15:14)
[2018-09-16 08:24] LABS: EOS % 11.2 % (0-4.5); HEMATOCRIT 26.2 % (32.4-45.2); HEMOGLOBIN 8.6 GM/dL (10.7-15.3); MCH 28.4 pg (25.7-33.7); MCHC 32.9 g/dl (32.0-36.0); MEAN CELL VOLUME 86.2 fl (80-96); MEAN PLT VOLUME 8.4 fl (7.5-11.1); MONO % 10.7 % (3.8-10.2); NEUT % 58.1 % (42.8-82.8); RBC 3.04 M/mm3 (3.60-5.2); RDW 16.3 % (11.6-15.6); WHITE BLOOD COUNT 6.6 K/mm3 (4.0-10.0)
[2018-09-16 08:29] LABS: CALCIUM 8.6 mg/dL (8.5-10.1); MAGNESIUM 2.4 mg/dL (1.8-2.4); PHOSPHOROUS 6.2 mg/dL (2.5-4.9); POTASSIUM 4.1 mmol/L (3.5-5.1)
[2018-09-16 08:33] LABS: CREATININE 7.9 mg/dL (0.55-1.3)
[2018-09-16 09:08] LABS: PLATELET COUNT 394 K/MM3 (134-434)
[2018-09-16 10:02] LABS: ANISOCYTOSIS 0; MACROCYTOSIS 0; PLATELET ESTIMATE NORMAL
[2018-09-16] MEDS: LABETALOL HCL 100 MG TABLET (FP) PO SCH (10:14)
[2018-09-16] MEDS: CALCIUM (OYSTER SHELL) 500 MG TABLET (FP) PO SCH (10:37)
[2018-09-16] MEDS ORDERED: EPOETIN ALFA 20,000 UNIT/1 ML VIAL IVPUSH ONE (11:21)
[2018-09-16] MEDS ORDERED: ceFAZolin 2 GRAM PREMIX BAG IVPB ONE (11:30)
--- NOTE | 2018-09-16 14:05 | PN ---
Progress Note, Physician - Current Medication List Current Medications: Active Medications Acetaminophen (Tylenol -) 650 mg PO Q6H PRN PRN Reason: MILD PAIN Last Admin: 09/12/18 23:30 Dose: 650 mg Amlodipine Besylate (Norvasc -) 5 mg PO DAILY [facility] Last Admin: 09/15/18 12:29 Dose: 5 mg Calcium Acetate (Phoslo -) 667 mg PO TIDCM [facility] Last Admin: 09/16/18 08:19 Dose: 667 mg Calcium Carbonate (Os-Shaheed 500mg -) 500 mg PO DAILY [facility] Last Admin: 09/16/18 10:37 Dose: 500 mg Heparin Sodium (Porcine) (Heparin -) 5,000 unit SQ TID [facility] Last Admin: 09/16/18 05:56 Dose: 5,000 unit Nafcillin Sodium 1 gm/ (Dextrose) 100 mls @ 100 mls/hr IVPB Q6H-IV [facility]; Protocol Last Admin: 09/16/18 10:37 Dose: 100 mls/hr Sodium Chloride (Normal Saline -) 250 mls @ 3,000 mls/hr IV PRN PRN PRN Reason: Hypotension during Dialysis Stop: 09/16/18 22:00 Labetalol HCl (Normodyne -) 300 mg PO BID [facility] Last Admin: 09/15/18 21:13 Dose: 300 mg - Objective Vital Signs: Vital Signs Temperature 98.2 F 09/16/18 11:05 Pulse Rate 100 H 09/16/18 13:40 Respiratory Rate 18 09/16/18 13:40 Blood Pressure 124/71 09/16/18 13:40 O2 Sat by Pulse Oximetry (%) 98 09/15/18 21:00 Labs: CBC, BMP 09/16/18 07:00 09/16/18 07:00 INR, PTT INR 0.94 (0.83-1.09) 09/08/18 23:45
[2018-09-16 15:17] VITALS: BP 123/83; PULSE 100; TEMP 99.3
[2018-09-16] MEDS: amLODIPine BESYLATE 5 MG TABLET (FP) PO SCH (15:21)
[2018-09-16] MEDS ORDERED: amLODIPine BESYLATE 5 MG TABLET (FP) PO SCH (15:30)
[2018-09-16] MEDS ORDERED: CALCIUM ACETATE 667 MG CAPSULE (FP) PO SCH (15:30)
--- NOTE | 2018-09-16 15:42 | DS ---
Physical Exam: SUBJECTIVE: Patient seen and examined, some cough but improved. OBJECTIVE: Vital Signs Period Temp Pulse Resp BP Sys/James Pulse Ox Last 24 Hr 98.2 F-99.3 F 71-100 18-20 116-143/60-85 98 Intake & Output 09/13/18 09/14/18 09/15/18 09/16/18 23:59 23:59 23:59 23:59 Intake Total 1560 1200 1100 Output Total 2 4 2 Balance 1560 1198 1096 -2 Weight 166 lb 3.657 oz 168 lb 11.2 oz PHYSICAL EXAM GENERAL: The patient is awake, alert, and fully oriented, in no acute distress. HEAD: Normal with no signs of trauma. EYES: PERRL, extraocular movements intact, sclera anicteric, conjunctiva clear. ENT: Ears normal, nares patent, oropharynx clear without exudates, moist mucous membranes. NECK: Trachea midline, full range of motion, supple. LUNGS: Breath sounds equal, clear to auscultation bilaterally, no wheezes, no crackles, no accessory muscle use. HEART: Regular rate and rhythm, S1, S2 without murmur, rub or gallop. ABDOMEN: Soft, nontender, nondistended, normoactive bowel sounds, no guarding, no rebound, no hepatosplenomegaly, no masses. EXTREMITIES: left AV fistula site clean, no active bleed or dsicahrge NEUROLOGICAL: Cranial nerves II through XII grossly intact. Normal speech, gait not observed. PSYCH: Normal mood, normal affect. SKIN: Warm, dry, normal turgor, no rashes or lesions noted. LABS Laboratory Results - last 24 hr 09/16/18 09/16/18 07:00 07:00 WBC 6.6 RBC 3.04 L Hgb 8.6 L Hct 26.2 L MCV 86.2 MCH 28.4 MCHC 32.9 RDW 16.3 H Plt Count 394 MPV 8.4 Absolute Neuts (auto) 3.8 Neutrophils % 58.1 Neutrophils % (Manual) 60.2 Band Neutrophils % 0.0 Lymphocytes % 19.0 Lymphocytes % (Manual) 20.4 Monocytes % 10.7 H Monocytes % (Manual) 9 Eosinophils % 11.2 H Eosinophils % (Manual) 9.7 H Basophils % 1.0 Basophils % (Manual) 1.0 Myelocytes % (Man) 0 Promyelocytes % (Man) 0 Blast Cells % (Manual) 0 Nucleated RBC % 0 Metamyelocytes 0 D Hypochromia 1+ Platelet Estimate Normal Polychromasia 0 Poikilocytosis 1+ Basophilic Stippling 1+ Anisocytosis 0 Microcytosis 0 Macrocytosis 0 Schistocytes 1+ Sodium 136 Potassium 4.1 Chloride 100 Carbon Dioxide 27 Anion Gap 9 BUN 40.0 H Creatinine 7.9 H* Est GFR (CKD-EPI)AfAm 6.71 Est GFR (CKD-EPI)NonAf 5.79 Random Glucose 82 Calcium 8.6 Phosphorus 6.2 H Magnesium 2.4 Microbiology 09/14/18 20:05 Blood - Peripheral Venous Blood Culture - Preliminary NO GROWTH OBTAINED AFTER 24 HOURS, INCUBATION TO CONTINUE FOR 4 DAYS. 09/14/18 19:50 Blood - Peripheral Venous Blood Culture - Preliminary NO GROWTH OBTAINED AFTER 24 HOURS, INCUBATION TO CONTINUE FOR 4 DAYS. 09/10/18 11:39 Blood - Peripheral Venous Blood Culture - Final NO GROWTH AFTER 5 DAYS INCUBATION 09/10/18 11:25 Blood - Peripheral Venous Blood Culture - Final NO GROWTH AFTER 5 DAYS INCUBATION 09/08/18 23:45 Blood - Peripheral Venous Blood Culture - Final Staphylococcus Latex Coag Pos 09/08/18 23:45 Blood - Peripheral Venous Blood Culture - Final Staphylococcus Aureus 09/09/18 00:18 Urine - Urine Clean Catch Urine Culture - Final NO GROWTH OBTAINED HOSPITAL COURSE: Date of Admission:09/09/18 Date of Discharge: 09/16/18 Minutes to complete discharge: 45 Discharge Summary Reason For Visit: SEPSIS Current Active Problems HTN (hypertension) (Acute) Hospital Course: 38 yof with PMHx of 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 She had MSSA bacteremia, was initially on nafcillin. She had 2D echo with acute concerns. her subclavian catheter was removed and she was dialyzed via the left arm Av fistula with no concerns. her repeat blood cultures are negative and fevers resolved. She will be continued on cefazolin with hemodilyais. Condition: Good - Instructions Diet, Activity, Other Instructions: You will be continued on antibiotic Cefazolin with hemodilaysis FOLLOW UP: With Primary care doctor in [address] Santana for hemodialysis, you will continue to receive your antibiotic with hemodialysis per your doctor. If you notice any new fevers, chills, cough with sputum, weakness or any new concerns, please call 911 or come to ED. Referrals: Renate Pichardo MD [Primary Care Provider] - Von Dillon MD [Staff Physician] - Disposition: HOME - Home Medications Comprehensive Discharge Medication List: Ambulatory Orders Labetalol HCl 300 mg PO BID 06/29/18 Amlodipine Besylate [Norvasc -] 5 mg PO DAILY tablet 07/02/18 Calcium (Oyster Shell) [Os-Shaheed 500MG -] 500 mg PO DAILY #60 tablet 07/02/18 Cefazolin Sodium in 0.9 % NaCl [Cefazolin 3 G/100 ml-0.9% NaCl] 3 gm IV Q72H 14 Days #6 piggyback 08/09/18 Calcium Acetate [Phoslo -] 667 mg PO TIDCM #90 capsule 09/16/18 This patient is new to me today: No Emergency Visit: Yes ED Registration Date: 09/09/18 Care time: The patient presented to the Emergency Department on the above date and was hospitalized for further evaluation of their emergent condition. Critical Care patient: No - Discharge Referral Referred to [facility] No
== END 2018-09-16 16:40 | disposition home or self-care (01) | DRG 721 ==
LOC: JER 22:59 → JERBED 09-09 00:40 → J5S 09-09 13:19
PROVIDERS: ADMIT Internal Medicine; ATTEND Hospitalist
PROC: 05PYX3Z Removal of Infusion Device from Upper Vein, External Approach (ICD-10-PCS; principal; 2018-09-09)
PROC: 0JPV0XZ Removal of Tunneled Vascular Access Device from Upper Extremity Subcutaneous Tissue and Fascia, Open Approach (ICD-10-PCS; 2018-09-09)
PROC: 5A1D70Z Performance of Urinary Filtration, Intermittent, Less than 6 Hours Per Day (ICD-10-PCS; 2018-09-10)
PROC: 5A1D70Z Performance of Urinary Filtration, Intermittent, Less than 6 Hours Per Day (ICD-10-PCS; 2018-09-11)
PROC: 5A1D70Z Performance of Urinary Filtration, Intermittent, Less than 6 Hours Per Day (ICD-10-PCS; 2018-09-14)
PROC: 5A1D70Z Performance of Urinary Filtration, Intermittent, Less than 6 Hours Per Day (ICD-10-PCS; 2018-09-16)
DX: T80.211A Bloodstream infection due to central venous catheter, initial encounter (principal); A41.01 Sepsis due to Methicillin susceptible Staphylococcus aureus; I12.0 Hypertensive chronic kidney disease with stage 5 chronic kidney disease or end stage renal disease; N18.6 End stage renal disease; Z99.2 Dependence on renal dialysis; R50.9 Fever, unspecified; R00.0 Tachycardia, unspecified; D72.829 Elevated white blood cell count, unspecified; M54.2 Cervicalgia; D63.1 Anemia in chronic kidney disease; E87.1 Hypo-osmolality and hyponatremia; E83.39 Other disorders of phosphorus metabolism; E66.9 Obesity, unspecified; Z68.34 Body mass index [BMI] 34.0-34.9, adult
CPT/HCPCS: 36415; 71045-TC-FY; 80048; 80053; 81003; 82803; 83605; 83735; 84100; 84484; 85025; 85027; 85610; 85651; 85730; 86140; 86803; 86850; 86900; 86901; 87040; 87077; 87086; 87186; 87340; 87350; 93005; 93010; 93306-TC; 93971; 94010; 99283-25; G0480; J0131; J0885; J1644

== ENCOUNTER 2022-04-02 05:54 | Day surgery (SDC) | payer OTHER ==
[2022-04-02 06:11] VITALS: BMI 35.3
[2022-04-02] MEDS ORDERED: ACETAMINOPHEN 500 MG TABLET (FP) PO ONE (07:47)
[2022-04-02 09:11] LABS: BASO % 0.7 % (0-2.0); EOS % 3.8 % (0-4.5); HEMATOCRIT 33.4 % (32.4-45.2); HEMOGLOBIN 11.5 GM/dL (10.7-15.3); LYMPH % 17.5 % (8-40); MCH 33.5 pg (25.7-33.7); MCHC 34.4 g/dl (32.0-36.0); MEAN CELL VOLUME 97.6 fl (80-96); MEAN PLT VOLUME 8.1 fl (7.5-11.1); MONO % 5.2 % (3.8-10.2); NEUT % 72.8 % (42.8-82.8); PLATELET COUNT 256 10^3/uL (134-434); RBC 3.42 M/mm3 (3.60-5.2); WHITE BLOOD COUNT 7.7 K/mm3 (4.0-10.0)
[2022-04-02 09:12] LABS: INR 1.03 (0.83-1.09); PROTHROMBIN TIME (PATIENT) 11.9 SEC (9.7-13.0)
[2022-04-02 09:31] LABS: CALCIUM 9.4 mg/dL (8.5-10.1)
[2022-04-02 09:32] LABS: ALBUMIN 3.9 g/dl (3.4-5.0)
[2022-04-02 09:34] LABS: CREATININE 7.2 mg/dL (0.55-1.3)
[2022-04-02 09:36] LABS: BILIRUBIN,TOTAL 0.5 mg/dL (0.2-1); TOT PROT 7.4 g/dl (6.4-8.2)
[2022-04-02] MEDS ORDERED: LIDOCAINE HCL 1%, 10 MG/ML (20ML VIAL) ONE (10:49)
[2022-04-02] MEDS ORDERED: PAPAVERINE HCL 30 MG/1 ML 10 ML VIAL NR ONE (10:49)
[2022-04-02] MEDS ORDERED: HEPARIN NA (PORCINE) 5,000 UNITS/ML 1ML VIAL ONE (10:50)
[2022-04-02] MEDS ORDERED: oxyCODONE HCL 5 MG TABLET PO PRN (11:01)
[2022-04-02] MEDS ORDERED: ONDANSETRON 4 MG/2 ML VIAL IVPUSH PRN (11:01)
[2022-04-02] MEDS ORDERED: MIDAZOLAM HCL 2 MG/2 ML SINGLE DOSE VIAL ONE (11:06)
[2022-04-02] MEDS ORDERED: PROPOFOL 20 ML ONE (11:07)
[2022-04-02] MEDS ORDERED: SODIUM CHLORIDE 1,000 ML IV SCH (11:15)
[2022-04-02] MEDS ORDERED: LIDOCAINE HCL 1%, 10 MG/ML (20ML VIAL) NR ONE (11:47)
[2022-04-02] MEDS ORDERED: HEPARIN NA (PORCINE) 5,000 UNITS/ML 1ML VIAL SQ ONE (11:48)
[2022-04-02 12:39] VITALS: RESP 18
[2022-04-02 14:18] VITALS: BP 123/77; PULSE 71; TEMP 97.6
== END 2022-04-02 14:10 | disposition home or self-care (01) ==
LOC: JER 05:54 → JASUSAT 08:20
PROVIDERS: ATTEND Surgery
PROC: 3E033GC Introduction of Other Therapeutic Substance into Peripheral Vein, Percutaneous Approach (ICD-10-PCS; 2022-04-02)
PROC: 3E033NZ Introduction of Analgesics, Hypnotics, Sedatives into Peripheral Vein, Percutaneous Approach (ICD-10-PCS; principal; 2022-04-02 11:45)
DX: I82.622 Acute embolism and thrombosis of deep veins of left upper extremity (principal)
CPT/HCPCS: 0241U-QW; 36415; 76000-TC-FY; 80053; 84703; 85025; 85610; 86850; 86900; 86901; 93005; 93010; 94760; 99285-25; J1644

== ENCOUNTER 2022-09-19 11:24 | Day surgery (SDC) | payer OTHER ==
[2022-09-19 11:30] VITALS: BMI 35.5
[2022-09-19 12:33] LABS: BASO % 0.9 % (0-2.0); EOS % 7.4 % (0-4.5); HEMATOCRIT 36.9 % (32.4-45.2); HEMOGLOBIN 12.4 GM/dL (10.7-15.3); MCH 32.8 pg (25.7-33.7); MCHC 33.6 g/dl (32.0-36.0); MEAN CELL VOLUME 97.6 fl (80-96); MEAN PLT VOLUME 8.3 fl (7.5-11.1); NEUT % 66.7 % (42.8-82.8); PLATELET COUNT 227 10^3/uL (134-434); RBC 3.78 M/mm3 (3.60-5.2); RDW 14.3 % (11.6-15.6)
[2022-09-19 12:42] LABS: INR 1.08 (0.83-1.09); PROTHROMBIN TIME (PATIENT) 12.5 SEC (9.7-13.0)
[2022-09-19 12:45] LABS: ACTIVATED PTT 31.7 SECONDS (25.2-36.5)
[2022-09-19 13:01] LABS: ALBUMIN 3.7 g/dl (3.4-5.0); ANION GAP 11 MMOL/L (8-16); BLOOD UREA NITROGEN 35.9 mg/dL (7-18); CHLORIDE 104 mmol/L (98-107); CO2 26 mmol/L (21-32); GLUCOSE,RANDOM 84 mg/dL (74-106); POTASSIUM 3.9 mmol/L (3.5-5.1); SODIUM 141 mmol/L (136-145)
[2022-09-19 13:03] LABS: CALCIUM 9.2 mg/dL (8.5-10.1)
[2022-09-19 13:04] LABS: SGPT/ALT 26 U/L (13-61)
[2022-09-19 13:05] LABS: SGOT/AST 21 U/L (15-37)
[2022-09-19 13:06] LABS: BILIRUBIN,TOTAL 0.4 mg/dL (0.2-1); TOT PROT 7.7 g/dl (6.4-8.2)
[2022-09-19 13:07] LABS: ALK PHOS 85 U/L (45-117); CREATININE 8.4 mg/dL (0.55-1.3)
[2022-09-19] MEDS ORDERED: LIDOCAINE HCL 1%, 10 MG/ML (10ML VIAL) MDV ONE (14:03)
[2022-09-19] MEDS ORDERED: HEPARIN NA (PORCINE) 5,000 UNITS/ML 1ML VIAL ONE ×2 (14:03→14:49)
[2022-09-19] MEDS ORDERED: PROPOFOL 60 ML ONE (15:21)
[2022-09-19] MEDS ORDERED: MIDAZOLAM HCL 2 MG/2 ML SINGLE DOSE VIAL ONE (15:26)
[2022-09-19] MEDS ORDERED: ONDANSETRON 4 MG/2 ML VIAL ONE (15:49)
[2022-09-19] MEDS ORDERED: DEXAMETHASONE SOD PHOSPHATE 4 MG/1 ML VIAL ONE (15:49)
[2022-09-19] MEDS ORDERED: ceFAZolin SODIUM 1 GM VIAL IVPB ONE (15:55)
[2022-09-19] MEDS ORDERED: LIDOCAINE HCL 1%, 10 MG/ML (20ML VIAL) INF ONE ×2 (16:01)
[2022-09-19] MEDS ORDERED: PROPOFOL 40 ML ONE (17:16)
[2022-09-19] MEDS ORDERED: POVIDONE-IODINE OINTMENT 10% - 28.4 GM TUBE ONE (17:25)
[2022-09-19] MEDS ORDERED: IOHEXOL 180 MG/1 ML ML IJ ONE (17:30)
[2022-09-19] MEDS ORDERED: ONDANSETRON 4 MG/2 ML VIAL IVPUSH PRN ×2 (18:47→19:05)
[2022-09-19] MEDS ORDERED: LACTATED RINGERS SOLUTION 1,000 ML IV SCH (19:00)
[2022-09-20 02:12] VITALS: RESP 17
[2022-09-20] MEDS ORDERED: ONDANSETRON 4 MG/2 ML VIAL IVPUSH ONE (03:09)
[2022-09-20 07:58] VITALS: BP 141/81; PULSE 80; TEMP 97.6
== END 2022-09-20 09:41 | disposition home or self-care (01) ==
LOC: JER 11:24 → JASUSAT 14:58 → J8W 20:16 → JASUSAT 09-20 09:41
PROVIDERS: ATTEND Surgery
PROC: 05BC0ZZ Excision of Left Basilic Vein, Open Approach (ICD-10-PCS; principal; 2022-09-19 17:30)
PROC: 0JH63WZ Insertion of Totally Implantable Vascular Access Device into Chest Subcutaneous Tissue and Fascia, Percutaneous Approach (ICD-10-PCS; 2022-09-19 17:30)
DX: T82.898A Other specified complication of vascular prosthetic devices, implants and grafts, initial encounter (principal); T82.868A Thrombosis due to vascular prosthetic devices, implants and grafts, initial encounter; Y83.2 Surgical operation with anastomosis, bypass or graft as the cause of abnormal reaction of the patient, or of later complication, without mention of misadventure at the time of the procedure; Y92.9 Unspecified place or not applicable; I12.0 Hypertensive chronic kidney disease with stage 5 chronic kidney disease or end stage renal disease; N18.6 End stage renal disease
CPT/HCPCS: 36558; 36832; C1751; 0241U-QW; 36415; 71045-TC-FY; 76000-TC-FY; 80053; 84703; 85025; 85610; 85730; 86850; 86900; 86901; 93005; 93010; 94760; 99285-25; C1750; C1769; J1644

== ENCOUNTER 2022-10-04 10:14 | Emergency (ER) | payer OTHER ==
[2022-10-04 10:17] VITALS: RESP 18; BMI 35.5
[2022-10-04] MEDS ORDERED: ACETAMINOPHEN 1000 MG/100 ML BAG IVPB ONE (11:52)
[2022-10-04] MEDS ORDERED: ACETAMINOPHEN INJECTION 100 ML IVPB ONE ×2 (11:59→14:39)
[2022-10-04 12:37] LABS: BASO % 0.8 % (0-2.0); EOS % 3.1 % (0-4.5); HEMATOCRIT 31.4 % (32.4-45.2); HEMOGLOBIN 10.9 GM/dL (10.7-15.3); LYMPH % 13.7 % (8-40); MCH 33.3 pg (25.7-33.7); MCHC 34.7 g/dl (32.0-36.0); MEAN CELL VOLUME 95.8 fl (80-96); MEAN PLT VOLUME 7.9 fl (7.5-11.1); MONO % 5.3 % (3.8-10.2); NEUT % 77.1 % (42.8-82.8); PLATELET COUNT 336 10^3/uL (134-434); RBC 3.28 M/mm3 (3.60-5.2); RDW 14.3 % (11.6-15.6); WHITE BLOOD COUNT 9.9 K/mm3 (4.0-10.0)
[2022-10-04 12:45] LABS: INR 1.05 (0.83-1.09); PROTHROMBIN TIME (PATIENT) 12.2 SEC (9.7-13.0)
[2022-10-04 13:02] LABS: POTASSIUM 3.3 mmol/L (3.5-5.1)
[2022-10-04 13:05] LABS: CALCIUM 9.3 mg/dL (8.5-10.1)
[2022-10-04 13:06] LABS: ALBUMIN 3.7 g/dl (3.4-5.0); BLOOD UREA NITROGEN 16.9 mg/dL (7-18)
[2022-10-04 13:09] LABS: CREATININE 4.3 mg/dL (0.55-1.3)
[2022-10-04 13:10] LABS: BILIRUBIN,TOTAL 0.4 mg/dL (0.2-1); TOT PROT 7.7 g/dl (6.4-8.2)
[2022-10-04 13:55] LABS: MAGNESIUM 1.8 mg/dL (1.8-2.4)
[2022-10-04] MEDS ORDERED: POTASSIUM CHLORIDE TABS 20 MEQ TABLET.ER (FP) PO ONE ×2 (14:35→14:38)
[2022-10-04 17:43] VITALS: BP 118/77; PULSE 72; TEMP 98.1
== END 2022-10-04 17:50 | disposition home or self-care (01) ==
LOC: JER 10:14
PROC: 3E033NZ Introduction of Analgesics, Hypnotics, Sedatives into Peripheral Vein, Percutaneous Approach (ICD-10-PCS; principal; 2022-10-04)
DX: M54.2 Cervicalgia (principal); M54.6 Pain in thoracic spine; Z99.2 Dependence on renal dialysis
CPT/HCPCS: 36415; 70360-TC-FY; 71045-TC-FY; 80053; 83735; 84484; 85025; 85610; 85730; 93005; 93010; 99285-25

== ENCOUNTER 2022-10-18 10:27 | Emergency (ER) | payer OTHER ==
[2022-10-18 10:32] VITALS: BMI 35.2
[2022-10-18] MEDS ORDERED: ACETAMINOPHEN 325 MG TABLET (FP) PO ONE (14:40)
[2022-10-18] MEDS ORDERED: ACETAMINOPHEN 325 MG TABLET (FP) ONE (15:00)
[2022-10-18 15:17] VITALS: BP 129/77; PULSE 81; RESP 16; TEMP 98
== END 2022-10-18 15:18 | disposition home or self-care (01) ==
LOC: JER 10:27
DX: T82.590A Other mechanical complication of surgically created arteriovenous fistula, initial encounter (principal); Y83.1 Surgical operation with implant of artificial internal device as the cause of abnormal reaction of the patient, or of later complication, without mention of misadventure at the time of the procedure
CPT/HCPCS: 84703; 93971; 99284-25